=== PATIENT | female | born 1990 | race Caucasian/White ===

== ENCOUNTER 2019-12-27 04:42 | Emergency (ER) | payer BC ==
[2019-12-27] MEDS ORDERED: SODIUM CHLORIDE 0.9% 1,000 ML IV STA (05:02)
[2019-12-27] MEDS ORDERED: MORPHINE SULFATE 4 MG/ML SYRINGE IVP STA (05:10)
[2019-12-27] MEDS ORDERED: ONDANSETRON 4 MG/2 ML VIAL IVP STA (05:10)
--- NOTE | 2019-12-27 05:13 | ED ---
Abdominal Pain HPI - General Chief Complaint: Abdominal Pain Stated Complaint: Abdominal Pain Time Seen by Provider: 12/27/19 05:02 Source: patient Mode of arrival: ambulatory Limitations: no limitations - History of Present Illness Initial Comments: Lupe is a 29-year-old female presents the ER today for evaluation of right lower quadrant abdominal pain. Pain began on Thursday evening, persisted throughout the dayon Thursday progressively worsening. Pain is associated with nausea but no vomiting no change in bowel or bladder habits. No history of ki dney stones. Patient does report a history of ovarian cysts but reports this pain is much more severe and sharp and persistent than previous ovarian cyst pain. Patient has no history of any abdominal surgeries. - Related Data Home Medications Medication Instructions Recorded Confirmed No Known Home Medications 12/27/19 12/27/19 Allergies Allergy/AdvReac Type Severity Reaction Status Date / Time No Known Allergies Allergy Verified 12/27/19 06:59 Review of Systems ROS Statement: Those systems with pertinent positive or pertinent negative responses have been documented in the HPI. ROS Other: All systems not noted in ROS Statement are negative. 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 History of Any Multi-Drug Resistant Organisms: None Reported Past Psychological History: No Psychological Hx Reported Smoking Status: Never smoker Past Alcohol Use History: None Reported Past Drug Use History: None Reported General Exam - General Exam Comments Initial Comments: Physical Exam GENERAL: appears uncomfortable HENT: Normocephalic, Atraumatic. EYES: PERRL, EOMI PULMONARY: Unlabored respirations. CARDIOVASCULAR: RRR Warm and well perfused extremities ABDOMEN: soft with voluntary guarding in the right lower quadrant and suprapubic region No flank tenderness SKIN: No rashes or bruising : Deferred NEUROLOGIC: Alert and oriented Normal speech Normal gait MUSCULOSKELETAL: Moving all extremities with no apparent injury PSYCHIATRIC: No SI/HI Limitations: no limitations Course Vital Signs 12/27/19 04:47 Temperature 98.4 F Pulse Rate 116 H Respiratory 16 Rate Blood Pressure 110/69 O2 Sat by Pulse 98 Oximetry Medical Decision Making - Medical Decision Making she was seen and evaluated history was obtained from the patient History and physical exam are concerning for right lower quadrant abdominal pain, she has some voluntary guarding on exam Labs and CT imaging were obtained Labs are relatively unremarkable Patient declined a pelvic exam stating that she's only had one sexual partner she has no vaginal discharge no concern for sexual transmitted infections Urinalysis grossly contaminated no signs of infection CT imaging with very large bilateral ovarian cysts no signs of appendicitis Patient's pain decreased to a 4 out of 10 with morphine she was given a dose of Toradol she tolerated pelvic ultrasound well Pelvic ultrasound reveals bilateral ovarian cysts with good blood flow Results were discussed with the patient is comfortable with the plan for discharge home, continue supportive care with anti-inflammatories for the cyst and follow up with gynecology. Return parameters including any worsening pain were discussed with the patient all questions pertaining care were answered to the best my ability. I did discuss with the patient that following with gynecology and possibly been put on control or discussing hormonal treatment might decrease the frequency of these cysts. 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 - Lab Data Result diagrams: 12/27/19 05:06 12/27/19 05:06 Lab Results 12/27/19 12/27/19 12/27/19 Range/Units 05:06 05:06 05:06 WBC 8.6 (3.8-10.6) k/uL RBC 4.85 (3.80-5.40) m/uL Hgb 14.9 (11.4-16.0) gm/dL Hct 44.5 (34.0-46.0) % MCV 91.6 (80.0-100.0) fL MCH 30.6 (25.0-35.0) pg MCHC 33.4 (31.0-37.0) g/dL RDW 12.8 (11.5-15.5) % Plt Count 264 (150-450) k/uL Neutrophils % 62 % Lymphocytes % 26 % Monocytes % 7 % Eosinophils % 2 % Basophils % 1 % Neutrophils # 5.3 (1.3-7.7) k/uL Lymphocytes # 2.2 (1.0-4.8) k/uL Monocytes # 0.6 (0-1.0) k/uL Eosinophils # 0.2 (0-0.7) k/uL Basophils # 0.1 (0-0.2) k/uL Sodium 140 (137-145) mmol/L Potassium 3.7 (3.5-5.1) mmol/L Chloride 108 H (98-107) mmol/L Carbon Dioxide 25 (22-30) mmol/L Anion Gap 7 mmol/L BUN 11 (7-17) mg/dL Creatinine 0.57 (0.52-1.04) mg/dL Est GFR (CKD-EPI)AfAm >90 (>60 ml/min/1.73 sqM) Est GFR (CKD-EPI)NonAf >90 (>60 ml/min/1.73 sqM) Glucose 83 (74-99) mg/dL Calcium 9.5 (8.4-10.2) mg/dL Total Bilirubin 0.7 (0.2-1.3) mg/dL AST 17 (14-36) U/L ALT 10 (4-34) U/L Alkaline Phosphatase 71 (38-126) U/L Total Protein 7.3 (6.3-8.2) g/dL Albumin 4.4 (3.5-5.0) g/dL Urine Color Yellow Urine Appearance Cloudy H (Clear) Urine pH 6.0 (5.0-8.0) Ur Specific [place] 1.026 (1.001-1.035) Urine Protein Trace H (Negative) Urine Glucose (UA) Negative (Negative) Urine Ketones Negative (Negative) Urine Blood Trace H (Negative) Urine Nitrite Negative (Negative) Urine Bilirubin Negative (Negative) Urine Urobilinogen 4.0 (<2.0) mg/dL Ur Leukocyte Esterase Small H (Negative) Urine RBC 4 (0-5) /hpf Urine WBC 11 H (0-5) /hpf Ur Squamous Epith Cells 37 H (0-4) /hpf Urine Bacteria Rare H (None) /hpf Hyaline Casts 4 H (0-2) /lpf Urine Mucus Few H (None) /hpf Urine Trichomonas Rare H (None) /hpf Urine HCG, Qual (Not Detectd) 12/27/19 Range/Units 05:06 WBC (3.8-10.6) k/uL RBC (3.80-5.40) m/uL Hgb (11.4-16.0) gm/dL Hct (34.0-46.0) % MCV (80.0-100.0) fL MCH (25.0-35.0) pg MCHC (31.0-37.0) g/dL RDW (11.5-15.5) % Plt Count (150-450) k/uL Neutrophils % % Lymphocytes % % Monocytes % % Eosinophils % % Basophils % % Neutrophils # (1.3-7.7) k/uL Lymphocytes # (1.0-4.8) k/uL Monocytes # (0-1.0) k/uL Eosinophils # (0-0.7) k/uL Basophils # (0-0.2) k/uL Sodium (137-145) mmol/L Potassium (3.5-5.1) mmol/L Chloride (98-107) mmol/L Carbon Dioxide (22-30) mmol/L Anion Gap mmol/L BUN (7-17) mg/dL Creatinine (0.52-1.04) mg/dL Est GFR (CKD-EPI)AfAm (>60 ml/min/1.73 sqM) Est GFR (CKD-EPI)NonAf (>60 ml/min/1.73 sqM) Glucose (74-99) mg/dL Calcium (8.4-10.2) mg/dL Total Bilirubin (0.2-1.3) mg/dL AST (14-36) U/L ALT (4-34) U/L Alkaline Phosphatase (38-126) U/L Total Protein (6.3-8.2) g/dL Albumin (3.5-5.0) g/dL Urine Color Urine Appearance (Clear) Urine pH (5.0-8.0) Ur Specific [place] (1.001-1.035) Urine Protein (Negative) Urine Glucose (UA) (Negative) Urine Ketones (Negative) Urine Blood (Negative) Urine Nitrite (Negative) Urine Bilirubin (Negative) Urine Urobilinogen (<2.0) mg/dL Ur Leukocyte Esterase (Negative) Urine RBC (0-5) /hpf Urine WBC (0-5) /hpf Ur Squamous Epith Cells (0-4) /hpf Urine Bacteria (None) /hpf Hyaline Casts (0-2) /lpf Urine Mucus (None) /hpf Urine Trichomonas (None) /hpf Urine HCG, Qual Not Detected (Not Detectd) Disposition Clinical Impression: Ovarian cyst Disposition: HOME SELF-CARE Condition: Stable Instructions (If sedation given, give patient instructions): Ruptured Ovarian Cyst (ED) Additional Instructions: You have cysts on both ovaries Follow up with gynecology for further management Return to the ER for any acute worsening or development of new or concerning symptoms Is patient prescribed a controlled substance at d/c from ED?: No Referrals: None,Stated [Primary Care Provider] - 1-2 days Edilma Herman MD [STAFF PHYSICIAN] - 1-2 days
[2019-12-27 05:38] LABS: Basophils # (A) 0.1 k/uL (0-0.2); Basophils % (A) 1 %; Eosinophils # (A) 0.2 k/uL (0-0.7); Eosinophils % (A) 2 %; HCT 44.5 % (34.0-46.0); HGB 14.9 gm/dL (11.4-16.0); Lymphocytes # (A) 2.2 k/uL (1.0-4.8); Lymphocytes % (A) 26 %; MCH 30.6 pg (25.0-35.0); MCHC 33.4 g/dL (31.0-37.0); MCV 91.6 fL (80.0-100.0); Mean Platelet Volume 6.5; Monocytes # (A) 0.6 k/uL (0-1.0); Monocytes % (A) 7 %; Neutrophils # (A) 5.3 k/uL (1.3-7.7); Neutrophils % (A) 62 %; Platelet Count 264 k/uL (150-450); RBC 4.85 m/uL (3.80-5.40); RDW 12.8 % (11.5-15.5); WBC 8.6 k/uL (3.8-10.6)
[2019-12-27 05:49] LABS: ALT 10 U/L (4-34); AST 17 U/L (14-36); African American GFR (CKD) >90 (>60 ml/min/1.73 sqM); Albumin 4.4 g/dL (3.5-5.0); Alkaline Phosphatase 71 U/L (38-126); Anion Gap 7 mmol/L; Blood Urea Nitrogen 11 mg/dL (7-17); Calcium 9.5 mg/dL (8.4-10.2); Carbon Dioxide 25 mmol/L (22-30); Chloride 108 mmol/L (98-107); Glucose 83 mg/dL (74-99); Non-African American GFR(CKD) >90 (>60 ml/min/1.73 sqM); Potassium 3.7 mmol/L (3.5-5.1); Sodium 140 mmol/L (137-145); Total Bilirubin 0.7 mg/dL (0.2-1.3); Total Protein 7.3 g/dL (6.3-8.2)
[2019-12-27 05:56] LABS: Appearance,Urine Cloudy (Clear); Bacteria,Urine Rare /hpf; Bilirubin,Urine Negative (Negative); Blood,Urine Trace (Negative); Color,Urine Yellow; Glucose,Urine (UA) Negative (Negative); Hyaline Casts,Urine 4 /lpf (0-2); Ketones,Urine Negative (Negative); Leukocyte Esterase,Urine Small (Negative); Mucus,Urine Few /hpf; Nitrite,Urine Negative (Negative); Protein,Urine Trace (Negative); RBC,Urine 4 /hpf (0-5); Specific Gravity,Urine 1.026 (1.001-1.035); Squamous Epithelial Cell,Urine 37 /hpf (0-4); Trichomonas,Urine Rare /hpf; WBC,Urine 11 /hpf (0-5)
--- NOTE | 2019-12-27 06:44 | CT ---
EXAM: CT Abdomen and Pelvis With Intravenous Contrast CLINICAL HISTORY: RLQ abd pain, concerning for appy TECHNIQUE: Axial computed tomography images of the abdomen and pelvis with intravenous contrast. CTDI is 12.77 mGy and DLP is 554.5 mGy-cm. This CT exam was performed using one or more of the following dose reduction techniques: automated exposure control, adjustment of the mA and/or kV according to patient size, and/or use of iterative reconstruction technique. COMPARISON: No relevant prior studies available. FINDINGS: Lung bases: Unremarkable. No mass. No consolidation. ABDOMEN: Liver: Mild hepatic steatosis. Gallbladder and bile ducts: Unremarkable. No calcified stones. No ductal dilation. Pancreas: Unremarkable. No mass. No ductal dilation. Spleen: Unremarkable. No splenomegaly. Adrenals: Unremarkable. No mass. Kidneys and ureters: Unremarkable. No solid mass. No hydronephrosis. Stomach and bowel: Unremarkable. No obstruction. No mucosal thickening. PELVIS: Appendix: No findings to suggest acute appendicitis. Bladder: Unremarkable. No mass. Reproductive: Bilateral ovarian cysts, measuring up to 3.3 cm in greatest axial dimension on the right and 5.1 cm in greatest axial dimension on the left. ABDOMEN and PELVIS: Intraperitoneal space: Small amount of pelvic free fluid, likely physiologic. No free air. Bones/joints: No acute fracture. No dislocation. Soft tissues: Unremarkable. Vasculature: Unremarkable. No abdominal aortic aneurysm. Lymph nodes: Unremarkable. No enlarged lymph nodes. IMPRESSION: Bilateral ovarian cysts, measuring up to 3.3 cm in greatest axial dimension on the right and 5.1 cm in greatest axial dimension on the left. Small amount of pelvic free fluid, likely physiologic. Pelvic ultrasound is recommended for further evaluation.
[2019-12-27] MEDS ORDERED: KETOROLAC 15 MG/ML 1 ML VIAL IVP STA (06:51)
--- NOTE | 2019-12-27 08:05 | US ---
EXAMINATION TYPE: US transvag plus Dopplers DATE OF EXAM: 12/27/2019 COMPARISON: CT 12/27/2019 CLINICAL HISTORY: 29-year-old female ovarian cysts measuring 3-5cm on CT. TECHNIQUE: Transvaginal sonographic images of the pelvis were acquired. Color Doppler and spectral w aveform analysis of the ovarian arteries and veins. Date of LMP: 12/05/2019 FINDINGS: EXAM MEASUREMENTS: Uterus: 7.8 x 3.5 x 3.8 cm Endometrial Stripe: 0.7 cm Right Ovary: 4.5 x 3.5 x 3.3 cm with a volume of 26.8 mL. Left Ovary: 5.6 x 4.7 x 3.5 cm with a volume of 47.6 mL. 1. Uterus: Anteverted wnl 2. Endometrium: wnl 3. Right Ovary: Cyst visualized measuring 3.1 x 2.6 x 2.8 cm 4. Left Ovary: Complex cyst visualized measuring 4.8 x 2.5 x 4.2 cm. There is internal reticulations and faint septations. Spectral, color and waveform doppler imaging shows good arterial and venous flow within the ovaries ; there is no evidence for ovarian torsion. 5. Bilateral Adnexa: wnl 6. Posterior cul-de-sac: wnl IMPRESSION: 1. No sonographic evidence for ovarian torsion. 2. Complex cyst within the left ovary measures 4.8 cm. Given the internal reticulations, a hemorrhagi c cyst is suspected. Follow-up in 6-8 weeks to ensure resolution. 3. An additional dominant follicle or functional cyst measuring 3.1 cm on the right. This can also be reassessed at the patient's follow-up.
[2019-12-27 08:22] VITALS: BP 113/70; PULSE 65; RESP 18; TEMP 98.8
== END 2019-12-27 08:31 | disposition home or self-care (01) ==
LOC: EC 04:42
DX: N83.202 Unspecified ovarian cyst, left side (principal); N83.201 Unspecified ovarian cyst, right side
CPT/HCPCS: 36415; 80053; 85025; 81001; 81025; 93975; 76830; 74177; 99284; 96374; 96375 ×2; 96361 ×2; J2270; J2405; J1885; Q9967

== ENCOUNTER 2019-12-28 20:27 | Emergency (ER) | payer BC ==
[2019-12-28 20:49] VITALS: TEMP 98.1
[2019-12-28] MEDS ORDERED: SODIUM CHLORIDE 0.9% 1,000 ML IV STA (21:25)
[2019-12-28] MEDS ORDERED: KETOROLAC 15 MG/ML 1 ML VIAL IVP STA (21:25)
[2019-12-28] MEDS ORDERED: ONDANSETRON 4 MG/2 ML VIAL IVP STA (21:26)
[2019-12-28 22:05] LABS: Appearance,Urine Cloudy (Clear); Bacteria,Urine Rare /hpf; Bilirubin,Urine Negative (Negative); Blood,Urine Moderate (Negative); Color,Urine Yellow; Glucose,Urine (UA) Negative (Negative); Hyaline Casts,Urine 3 /lpf (0-2); Ketones,Urine Negative (Negative); Leukocyte Esterase,Urine Negative (Negative); Mucus,Urine Few /hpf; Nitrite,Urine Negative (Negative); Protein,Urine Trace (Negative); RBC,Urine 1 /hpf (0-5); Specific Gravity,Urine 1.027 (1.001-1.035); Squamous Epithelial Cell,Urine 18 /hpf (0-4); WBC,Urine 2 /hpf (0-5)
--- NOTE | 2019-12-28 22:15 | ED ---
Abdominal Pain HPI - General Chief Complaint: Abdominal Pain Stated Complaint: ovarian cysts-revisit Time Seen by Provider: 12/28/19 21:02 Source: patient Mode of arrival: ambulatory Limitations: no limitations - History of Present Illness Initial Comments: Patient is a 29-year-old female presenting to emergency Department with complaints of lower abdominal discomfort as well as nausea since yesterday. Patient was seen in the ER yesterday was diagnosed with ovarian cyst, possibly ruptured. She was sent home with ibuprofen. Patient states she came back today couldn't she is worried that the other side might have ruptured. She states her pain is not any worse but is not any better either. She states ibuprofen is not working. She does admit to nausea, no vomiting. She had a regular bowel movement today. She denies any fever, chills. She denies being at this time. She states she did make an appointment with an MILLING MACHINE OPERATOR, appointment is for Thursday. She is no further complaints at this time. - Related Data Home Medications Medication Instructions Recorded Confirmed Aspirin EC [Ecotrin Low Dose] 81 mg PO DAILY 12/28/19 12/28/19 Previous Rx's Medication Instructions Recorded Ketorolac [Toradol] 10 mg PO Q8HR #15 tab 12/28/19 Allergies Allergy/AdvReac Type Severity Reaction Status Date / Time No Known Allergies Allergy Verified 12/28/19 22:20 Review of Systems ROS Statement: Those systems with pertinent positive or pertinent negative responses have been documented in the HPI. ROS Other: All systems not noted in ROS Statement are negative. 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 , ovarian cyst History of Any Multi-Drug Resistant Organisms: None Reported Additional Past Surgical History / Comment(s): "heart surgery" Past Psychological History: No Psychological Hx Reported Smoking Status: Current every day smoker Past Alcohol Use History: Daily Past Drug Use History: Marijuana General Exam - General Exam Comments Initial Comments: GENERAL: Patient is well-developed and well-nourished. Patient is nontoxic and in no acute distress. HEAD: Atraumatic, normocephalic. EYES: Pupils equal round and reactive to light, extraocular movements intact, sclera a nicteric, conjunctiva are normal. Eyelids were unremarkable. ENT: TMs normal, nares patent, oropharynx clear without exudates. Moist mucous membranes. NECK: Normal range of motion, supple without lymphadenopathy or JVD. LUNGS: Unlabored respirations. Breath sounds clear to auscultation bilaterally and equal. No wheezes rales or rhonchi. HEART: Regular rate and rhythm without murmurs, rubs or gallops. ABDOMEN: Mild tenderness to the lower abdomen. Soft, normoactive bowel sounds. No guarding, no rebound. No masses appreciated. : declined MUSCULOSKELETAL: Normal extremities with adequate strength and normal range of motion, no pitting or edema. No clubbing or cyanosis. NEUROLOGICAL: Patient is alert and oriented x 3. Motor and sensory are also intact. Normal speech, normal gait. PSYCH: Normal mood, normal affect. SKIN: Warm, Dry, normal turgor, no rashes or lesions noted. Limitations: no limitations Course Vital Signs 12/28/19 20:46 Temperature 98.1 F Pulse Rate 98 Respiratory 20 Rate Blood Pressure 134/82 O2 Sat by Pulse 95 Oximetry Medical Decision Making - Medical Decision Making Patient is a 29-year-old female here for lower abdominal discomfort since yesterday. Patient was seen in the ER yesterday and had a full evaluation including labs, computed tomography scan as well as an ultrasound which revealed ovarian cysts. No signs of ovarian torsion. Patient is only having mild pain to palpation in the lower abdomen. Her vital signs are stable. I did repeat her urine shows no evidence of a UTI, urine hCG is not detected. I did review her urine from yesterday and they did mention urine trichomonas present. I did discuss this with the patient, I will treat her for trichomonas. I did recommend a pelvic exam however patient is declining this. She states she has no symptoms including no vaginal discharge, no vaginal pain. She also declined it yesterday. I will give patient Flagyl for Trichomonas. She was given fluids, Toradol and some Zofran for her symptoms. She has been resting comfortably in the bed. She is stable for discharge. She needs follow-up with MILLING MACHINE OPERATOR regarding her ovarian cyst. Return parameters were discussed with the patient she verbalized understanding. Case discussed with Dr. Zimmerman. - Lab Data Lab Results 12/28/19 12/28/19 Range/Units 21:46 21:46 Urine Color Yellow Urine Appearance Cloudy H (Clear) Urine pH 6.0 (5.0-8.0) Ur Specific [place] 1.027 (1.001-1.035) Urine Protein Trace H (Negative) Urine Glucose (UA) Negative (Negative) Urine Ketones Negative (Negative) Urine Blood Moderate H (Negative) Urine Nitrite Negative (Negative) Urine Bilirubin Negative (Negative) Urine Urobilinogen 2.0 (<2.0) mg/dL Ur Leukocyte Esterase Negative (Negative) Urine RBC 1 (0-5) /hpf Urine WBC 2 (0-5) /hpf Ur Squamous Epith Cells 18 H (0-4) /hpf Urine Bacteria Rare H (None) /hpf Hyaline Casts 3 H (0-2) /lpf Urine Mucus Few H (None) /hpf Urine HCG, Qual Not Detected (Not Detectd) Disposition Clinical Impression: Ovarian cyst, Abdominal pain, Trichomonas infection Disposition: HOME SELF-CARE Condition: Stable Instructions (If sedation given, give patient instructions): Ovarian Cyst (ED) Additional Instructions: Please return to the Emergency Department if symptoms worsen or any other concerns. Alternate between ibuprofen and Tylenol for discomfort. Do not drink alcohol for 48 hours after the medication given in the hospital. Follow-up with MILLING MACHINE OPERATOR as discussed. Prescriptions: Ketorolac [Toradol] 10 mg PO Q8HR #15 tab Is patient prescribed a controlled substance at d/c from ED?: No Referrals: None,Stated [Primary Care Provider] - 1-2 days
[2019-12-28] MEDS ORDERED: metroNIDAZOLE 500 MG TAB PO STA (22:27)
[2019-12-28 22:53] VITALS: BP 121/75; PULSE 70; RESP 18
== END 2019-12-28 22:59 | disposition home or self-care (01) ==
LOC: EC 20:27
DX: N83.201 Unspecified ovarian cyst, right side (principal); N83.202 Unspecified ovarian cyst, left side; A59.9 Trichomoniasis, unspecified; F17.200 Nicotine dependence, unspecified, uncomplicated
CPT/HCPCS: 81001; 81025; 99284; 96374; 96375; J2405; J1885

== ENCOUNTER → 2021-09-18 | Outpatient (CLI) | payer BC ==
--- NOTE | 2021-09-18 13:07 | CA ---
Transthoracic Echo Report Name: Lupe Sidhu Age: 30 Gender: F : 1990 Exam Date: 09/18/2021 08:32 Exam Location: [facility] Ht (in): 64.5 Wt (lb): 118 Ordering Physician: Edgard Diaz MD ([id number]) Attending/Referring Phys: Mohs Surgeon Karina Henderson RDCS Procedure CPT: Indications: I31.3 I35.1 Q21.1 Cardiac Hx: Technical Quality: Good Contrast 1: Total Dose (mL): Contrast 2: Total Dose (mL): MEASUREMENTS (Male / Female) Normal Values 2D ECHO LV Diastolic Diameter PLAX 4.8 cm 4.2 - 5.9 / 3.9 - 5.3 cm LV Systolic Diameter PLAX 3.2 cm IVS Diastolic Thickness 1.0 cm 0.6 - 1.0 / 0.6 - 0.9 cm LVPW Diastolic Thickness 0.9 cm 0.6 - 1.0 / 0.6 - 0.9 cm LV Relative Wall Thickness 0.4 RV Internal Dim ED PLAX 3.2 cm LA Systolic Diameter LX 3.0 cm 3.0 - 4.0 / 2.7 - 3.8 cm LA Volume 44.9 cm??? 18 - 58 / 22 - 52 cm??? M-MODE Aortic Root Diameter MM 2.7 cm MV E Point Septal Separation 0.4 cm AV Cusp Separation MM 2.0 cm DOPPLER AV Peak Velocity 175.1 cm/s AV Peak Gradient 12.3 mmHg AI Peak Velocity 569.9 cm/s AI Peak Gradient 129.9 mmHg AI Pressure Half Time 317.1 ms MV Area PHT 3.4 cm??? Mitral E Point Velocity 78.8 cm/s Mitral A Point Velocity 94.4 cm/s Mitral E to A Ratio 0.8 MV Deceleration Time 224.8 ms MV E' Velocity 10.9 cm/s Mitral E to MV E' Ratio 7.2 TR Peak Velocity 214.3 cm/s TR Peak Gradient 18.4 mmHg Right Ventricular Systolic Press 22.7 mmHg FINDINGS Left Ventricle Left ventricular ejection fraction is estimated at 55-60 %. Left ventricular cavity size normal. Left ventricular wall thickness normal. Right Ventricle Normal right ventricular size and function. Right ventricular systolic pressure within normal limits. Right Atrium Normal right atrial size. Left Atrium Normal left atrial size. No evidence for an atrial septal defect. Atrial septal defect repair 8 y/a. No shunt noted Mitral Valve Structurally normal mitral valve. No evidence for mitral valve prolapse. Trace to mild mitral regurgitation. Aortic Valve Trileaflet aortic valve. Moderate aortic regurgitation. Tricuspid Valve Mild tricuspid regurgitation. Pulmonic Valve Trace pulmonic regurgitation. Pericardium Normal pericardium. No pericardial effusion. Aorta Normal size aortic root and proximal ascending aorta. CONCLUSIONS Normal LV size and systolic function. This seems to be a ASD closure device but no shunt is noted. Aortic valve seems trileaflet but one cusp could be smaller and there is moderate aortic regurgitation. No pericardial effusion Previewed by: Dr. Rosalva Moran MD (Electronically Signed) Final Date: 18 September 2021 13:06
== END | disposition home or self-care (01) ==
LOC: RADECHMAIN 08:21
PROVIDERS: ATTEND Internal Medicine Clinical Cardiac Electrophysiology
DX: I08.3 Combined rheumatic disorders of mitral, aortic and tricuspid valves (principal); I31.3 Pericardial effusion (noninflammatory); Q21.1 Atrial septal defect
CPT/HCPCS: 93306

== ENCOUNTER → 2021-12-12 | Outpatient (CLI) | payer BC ==
--- NOTE | 2021-12-12 09:41 | US ---
EXAMINATION TYPE: US thyroid st tissue head/neck DATE OF EXAM: 12/12/2021 COMPARISON: CT chest July 05, 2021 CLINICAL HISTORY: E04.2 NONTOXIC MULTINODULAR GOITER. Goiter GLAND SIZE: Right Lobe: 6.7 x 2.6 x 3.9 cm Overall Parenchyma: heterogenous Left Lobe: 6.5 x 2.1 x 2.4 cm Overall Parenchyma: heterogeneous Isthmus Thickness: 0.4 cm NODULES RIGHT: # of nodules measured on right: 2 1. 3.2 X 2.4 x 2.8 cm, lower , solid or almost completely solid, hyperechoic nodule, which is wider than tall, with smooth margins, without echogenic foci. Prior size: no prior TR3 lesion. 2. 1.7 X 1.0 x 1.3 cm, mid, mixed cystic and solid, hypoechoic nodule, which is wider than tall, wi th lobulated or irregular margins, without echogenic foci. Prior size: no prior TR 3 lesion. LEFT: # of nodules measured on left: 3 1. 1.5 X 1.0 x 1.3 cm, upper , mixed cystic and solid, isoechoic nodule, which is wider than tall, with smooth margins, without echogenic foci. Prior size: no prior TR4 lesion 2. 1.7 X 1.1 x 1.5 cm, lower , solid or almost completely solid, hyperechoic nodule, which is wide r than tall, with smooth margins, without echogenic foci. Prior size: no prior TR 3 lesion. 3. 2.1 X 1.3 x 1.7 cm, lower , solid or almost completely solid, isoechoic nodule, which is wider t [place] tall, with smooth margins, without echogenic foci. Prior size: no prior TR 3 lesion ISTHMUS: # of nodules measured in the isthmus: 0 Bilateral neck scanned, no evidence of lymphadenopathy. Heterogeneous enlarged thyroid with multiple nodules. IMPRESSION: Advise sampling of the TR 4 1.5 cm lesion left thyroid lobe and the 3.2 cm nodule TR3 les ion right thyroid lobe. 2017 ACR TI-RADS LEVEL: TR-RADS 4 - Moderately Suspicious: Follow if > 1 cm, FNA if > 1.5 cm *Highest TI-RADS level nodule reported
== END | disposition home or self-care (01) ==
LOC: RADUSWWP 07:52
PROVIDERS: ATTEND Internal Medicine
DX: E04.2 Nontoxic multinodular goiter (principal)
CPT/HCPCS: 76536

== ENCOUNTER → 2022-06-06 | Outpatient (CLI) | payer BC ==
[2022-06-06 16:25] LABS: T4, Free (Free Thyroxine) 0.81 ng/dL (0.800-1.800)
== END | disposition home or self-care (01) ==
LOC: LABWHC1 09:50
PROVIDERS: ATTEND Nurse Practitioner Adult Health
DX: I47.1 Supraventricular tachycardia (principal); E03.9 Hypothyroidism, unspecified; C73 Malignant neoplasm of thyroid gland
CPT/HCPCS: 36415; 84432; 84439; 84443; 86800

== ENCOUNTER → 2022-08-27 | Outpatient (CLI) | payer BC ==
[2022-08-28 01:02] LABS: T4, Free (Free Thyroxine) 2.72 ng/dL (0.80-1.80)
== END | disposition home or self-care (01) ==
LOC: LABWHC1 12:12
PROVIDERS: ATTEND Internal Medicine
DX: E03.9 Hypothyroidism, unspecified (principal)
CPT/HCPCS: 36415; 84439; 84443

== ENCOUNTER → 2022-09-24 | Outpatient (CLI) | payer BC ==
--- NOTE | 2022-09-24 21:44 | US ---
EXAMINATION TYPE: US thyroid st tissue head/neck DATE OF EXAM: 09/24/2022 COMPARISON: US 12/12/2021. CLINICAL INDICATION: Female, 31 years old with history of C73 MALIGNANT NEOPLASM OF THYROID GLAND; Pt states thyroidectomy in February of 2022/ follow-up from surgery Technique: Grayscale imaging of the thyroid gland. Findings: Bilateral neck scanned, no evidence of lymphadenopathy. Bilateral thyroid bed appeared wnl, no defin ite residual thyroid tissue identified on today's scan. IMPRESSION: Thyroid gland is surgically absent. No evidence for suspicious mass or lymphadenopathy.
== END | disposition home or self-care (01) ==
LOC: RADUSWWP 16:25
PROVIDERS: ATTEND Internal Medicine
DX: C73 Malignant neoplasm of thyroid gland (principal)
CPT/HCPCS: 76536

== ENCOUNTER → 2022-12-04 | Outpatient (CLI) | payer BC ==
--- NOTE | 2022-12-04 16:28 | US ---
EXAMINATION TYPE: US transvaginal DATE OF EXAM: 12/04/2022 COMPARISON: US 2019 CLINICAL INDICATION: Female, 32 years old with history of N94.89 OTH COND ASSOC W FEMALE GENITAL ORGA NS AND; History of ovarian cysts TECHNIQUE: Transvaginal only per patient's order Date of LMP: 11/09/2022 EXAM MEASUREMENTS: Uterus: 7.9 x 3.5 x 4.6 cm Endometrial Stripe: 0.9 cm Right Ovary: 3.8 x 2.1 x 3.4 cm Left Ovary: 3.5 x 1.6 x 2.1 cm 1. Uterus: anteverted 2. Endometrium: wnl 3. Right Ovary: 1.7cm dominant follicle, 1.9 x 1.4 x 2.1cm hypoechoic area 4. Left Ovary: wnl 5. Bilateral Adnexa: wnl 6. Posterior cul-de-sac: wnl IMPRESSION: 1 probable functional right ovarian cyst.
== END | disposition home or self-care (01) ==
LOC: RADUSWWP 15:45
PROVIDERS: ATTEND Internal Medicine
DX: N94.89 Other specified conditions associated with female genital organs and menstrual cycle (principal)
CPT/HCPCS: 76830

== ENCOUNTER → 2023-02-21 | Outpatient (CLI) | payer BC ==
[2023-02-21 23:00] LABS: T4, Free (Free Thyroxine) 2.38 ng/dL (0.80-1.80)
== END | disposition home or self-care (01) ==
LOC: LABWHC1 10:28
PROVIDERS: ATTEND Internal Medicine
DX: C73 Malignant neoplasm of thyroid gland (principal); E03.9 Hypothyroidism, unspecified
CPT/HCPCS: 36415; 84432; 84439; 84443; 86800

== ENCOUNTER 2023-05-04 08:18 | Observation (INO) | payer BC ==
[2023-05-04] MEDS: SODIUM CHLORIDE 0.9% 1,000 ML IV STA (09:07)
[2023-05-04] MEDS: MORPHINE SULFATE 2 MG/ML SYRINGE IVP STA (09:07)
[2023-05-04 09:29] LABS: Basophils # (A) 0.1 k/uL (0-0.2); Basophils % (A) 1 %; Eosinophils # (A) 0.1 k/uL (0-0.7); Eosinophils % (A) 1 %; HCT 38.5 % (34.0-46.0); HGB 13.1 gm/dL (11.4-16.0); Lymphocytes # (A) 1.5 k/uL (1.0-4.8); Lymphocytes % (A) 21 %; MCH 30.7 pg (25.0-35.0); MCV 90.3 fL (80.0-100.0); Mean Platelet Volume 7.2; Monocytes # (A) 0.4 k/uL (0-1.0); Monocytes % (A) 7 %; Neutrophils # (A) 4.8 k/uL (1.3-7.7); Neutrophils % (A) 69 %; Platelet Count 220 k/uL (150-450); RBC 4.26 m/uL (3.80-5.40); RDW 12.7 % (11.5-15.5); WBC 6.9 k/uL (3.8-10.6)
[2023-05-04 09:45] LABS: INR 1.1 (<1.2)
[2023-05-04 09:51] LABS: ALT 12 U/L (4-34); AST 21 U/L (14-36); African American GFR (CKD) >90 (>60 ml/min/1.73 sqM); Albumin 4.2 g/dL (3.5-5.0); Alkaline Phosphatase 70 U/L (38-126); Anion Gap 6 mmol/L; Blood Urea Nitrogen 22 mg/dL (7-17); Calcium 9.2 mg/dL (8.4-10.2); Carbon Dioxide 23 mmol/L (22-30); Chloride 108 mmol/L (98-107); Glucose 93 mg/dL (74-99); Lipase 132 U/L (23-300); Magnesium 1.6 mg/dL (1.6-2.3); Non-African American GFR(CKD) >90 (>60 ml/min/1.73 sqM); Potassium 4.1 mmol/L (3.5-5.1); Sodium 137 mmol/L (137-145); Total Bilirubin 0.7 mg/dL (0.2-1.3); Total Protein 6.6 g/dL (6.3-8.2)
[2023-05-04 09:57] LABS: NT-Pro-B-Type Natriuretic Pept 395 pg/mL
--- NOTE | 2023-05-04 10:25 | CT ---
EXAMINATION: CTA CHEST WITH IV CONTRAST, CT PULMONARY ANGIOGRAM DATE OF EXAM: 05/04/2023 10:16 AM HISTORY: Chest pain radiating to back. TECHNIQUE: CTA examination of the chest , abdomen and pelvis was performed without and following the intravenous administration of 100 mL Isovue 300. Sagittal, coronal and 3-D reformatted images were pr ovided. CT dose lowering techniques were used, to include: automated exposure control, adjustment for patient size, and or use of iterative reconstruction. COMPARISON: None. FINDINGS: Lungs: Normal. Pleura: Normal. Mediastinum and Maria D: Normal. Pulmonary Arteries: Pulmonary arteries are well-opacified to the subsegmental level, no evidence of p ulmonary embolism. Cardiovascular: Normal. Upper Abdomen: Normal. Chest Wall: Normal. ABDOMEN: The liver, adrenals, kidneys, spleen, pancreas and gallbladder are within normal limits. There is no mesenteric or retroperitoneal lymphadenopathy. The thoracic aorta is normal in caliber without evidence of aneurysmal dilation or dissection. There are no pulmonary arterial filling defects. Atrial septal closure device is seen. There are no dilated loops of bowel or free intraperitoneal air. The appendix is normal. Pelvis: There is trace free fluid within the pelvis. There is no pelvic or inguinal lymphadenopathy. No gross bladder abnormalities are seen. Musculoskeletal: Normal. IMPRESSION: 1. No acute process seen within the chest, abdomen or pelvis.
[2023-05-04] MEDS: NITROGLYCERIN SL TABS 0.4 MG TAB SUBLINGUAL STA (10:53)
[2023-05-04] MEDS: ASPIRIN 81 MG PO STA (11:00)
[2023-05-04] MEDS ORDERED: NALOXONE 0.4 MG/ML 1 ML VIAL IV PRN (11:35)
--- NOTE | 2023-05-04 11:35 | ED ---
General Adult HPI - General Chief complaint: Chest Pain Stated complaint: Chest pain, SOB Time Seen by Provider: 05/04/23 08:40 Source: patient, RN notes reviewed, old records reviewed Mode of arrival: ambulatory Limitations: no limitations - History of Present Illness Initial comments: Patient is a 32-year-old female who presents emergency department complaining of chest pain with radiation to the back. Has a history of pericardial effusion. No history of cardiac stents. States pain has been present for the last few weeks but worse over the last few days. Nothing seems to help with it. Nothing seems to provoke it. Presents for further evaluation at this time. - Related Data Home Medications Medication Instructions Recorded Confirmed Levothyroxine Sodium 137 mcg PO DAILY 05/04/23 05/04/23 lisinopriL [Zestril] 2.5 mg PO DAILY 05/04/23 05/04/23 Allergies Allergy/AdvReac Type Severity Reaction Status Date / Time No Known Allergies Allergy Verified 05/04/23 12:41 Review of Systems ROS Statement: Those systems with pertinent positive or pertinent negative responses have been documented in the HPI. Review of Systems: CONST: Denies fever EYES: Denies blurry vision ENT: Denies nasal congestion C/V: Endorses chest pain RESP: Denies shortness of breath GI: Denies abdominal pain : Denies dysuria SKIN: Denies rash. MSK: Denies joint pain. NEURO: Denies headache ROS Other: All systems not noted in ROS Statement are negative. 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 , ovarian cyst History of Any Multi-Drug Resistant Organisms: None Reported Additional Past Surgical History / Comment(s): "heart surgery" Past Psychological History: No Psychological Hx Reported Smoking Status: Current every day smoker Past Alcohol Use History: Daily Past Drug Use History: Marijuana General Exam - General Exam Comments Initial Comments: General: Appears in no acute distress. HEAD: Normal with no signs of head trauma. EYES: PERRLA, EOMI, conjunctiva normal, no discharge. ENT: Hearing grossly intact, normal oropharynx. RESPIRATORY: Clear breath sounds bilaterally. No wheezes, rales, or rhonchi. C/V: Regular rate and rhythm. S1 and S2 auscultated, no edema, peripheral pulses 2+ and intact throughout ABD: Abd is soft, nontender, nondistended EXT: Normal range of motion, no obvious deformity SKIN: No rashes or lesions observed on exposed skin. NEURO: Alert and oriented x 4. Cranial nerves II-XII intact. No focal sensory or strength deficits. Limitations: no limitations Course Vital Signs 05/04/23 05/04/23 05/04/23 08:30 09:10 10:47 Temperature 98.2 F Pulse Rate 90 78 76 Respiratory 16 18 18 Rate Blood Pressure 125/78 134/64 116/56 O2 Sat by Pulse 98 99 99 Oximetry 05/04/23 11:53 Temperature Pulse Rate 75 Respiratory 20 Rate Blood Pressure 111/75 O2 Sat by Pulse 97 Oximetry Medical Decision Making - Medical Decision Making Was pt. sent in by a medical professional or institution (, PA, CUTTING AND CREASING PRESS OPERATOR, urgent care, hospital, or [place] health care facility...) When possible be specific @ -No Did you speak to anyone other than the patient for history (EMS, parent, family, police, friend...)? What history was obtained from this source @ -No Did you review nursing and triage notes (agree or disagree)? Why? @ -I reviewed and agree with nursing and triage notes Were old charts reviewed (outside hosp., previous admission, EMS record, old EKG, old radiological studies, urgent care reports/EKG's, [place] health care facility records)? Report findings @ -Old charts reviewed Differential Diagnosis (chest pain, altered mental status, abdominal pain women, abdominal pain men, vaginal bleeding, weakness, fever, dyspnea, syncope, headache, dizziness, GI bleed, back pain, seizure, CVA, palpatations, mental health, musculoskeletal)? @ -Differential Chest Pain: Stable Angina, Unstable Angina, STEMI, NSTEMI Aortic Dissection, Pneumothorax, Musculoskeletal, Esophageal Spasm GERD, Cholecystitis, Pancreatitis, Zoster, t his is not meant to be an all-inclusive list. EKG interpreted by me (3pts min.). @ -As above X-rays interpreted by me (1pt min.). @ -None done CT interpreted by me (1pt min.). @ -CT angio of the aorta reveals no obvious acute process. U/S interpreted by me (1pt. min.). @ -None done What testing was considered but not performed or refused? (CT, X-rays, U/S, labs)? Why? @ -None What meds were considered but not given or refused? Why? @ -None Did you discuss the management of the patient with other professionals (professionals i.e. , PA, CUTTING AND CREASING PRESS OPERATOR, lab, RT, psych nurse, manager social responsibility, special police, teacher, workers' compensation hearings officer, lead case manager)? Give summary @ -Discussed with [facility], midlevel Nancie who is accepted the admission. Was smoking cessation discussed for >3mins.? @ -No Was critical care preformed (if so, how long)? @ -No Were there social determinants of health that impacted care today? How? (Homelessness, low income, unemployed, alcoholism, drug addiction, transportation, low edu. Level, literacy, decrease access to med. care, usp, rehab)? @ -No Was there de-escalation of care discussed even if they declined (Discuss DNR or withdrawal of care, Hospice)? DNR status @ -No What co-morbidities impacted this encounter? (DM, HTN, Smoking, COPD, CAD, Cancer, CVA, ARF, Chemo, Hep., AIDS, mental health diagnosis, sleep apnea, morbid obesity)? @ -Pericardial effusion Was patient admitted / discharged? Hospital course, mention meds given and route, prescriptions, significant lab abnormalities, going to OR and other pertinent info. @ -Based on patient's presentation and physical exam, presents with chest pain. Has been ongoing for few weeks but is concerned it may have gotten worse over the last few days. Did see her home health attendant last week however symptoms persist. Presents for further evaluation. Will obtain cardiopulmonary workup and will obtain CT angiogram to evaluate the patient's aorta as well as for PE. Vital signs are within acceptable limits. Be symptomatically treated with morphine. CT unremarkable. EKG unremarkable. Patient's laboratory studies remarkable for negative troponin. On reevaluation, despite morphine, as well as nitro, chest pain persist. Did have some minimal improvement with morphine. We discussed her negative workup. She will be admitted for this chest pain. Cardiology consulted. Echo ordered. Patient given an aspirin at this time. I spoke with the admitting team, HENRY [place] of [facility] who accepted the admission. Undiagnosed new problem with uncertain prognosis? @ -No Drug Therapy requiring intensive monitoring for toxicity (Heparin, Nitro, Insulin, Cardizem)? @ -No Were any procedures done? @ -No Diagnosis/symptom? @ -Chest pain Acute, or Chronic, or Acute on Chronic? @ -Acute on chronic Uncomplicated (without systemic symptoms) or Complicated (systemic symptoms)? @ -Complicated Side effects of treatment? @ -No Exacerbation, Progression, or Severe Exacerbation? @ -No Poses a threat to life or bodily function? How? (Chest pain, [place], [place], pneumonia, PE, COPD, DKA, ARF, appy, cholecystitis, CVA, Diverticulitis, Homicidal, Suicidal, threat to staff... and all critical care pts) @ -Possibly, yes - Lab Data Result diagrams: 05/04/23 09:05 05/04/23 09:05 Lab Results 05/04/23 05/04/23 05/04/23 Range/Units 09:05 09:05 09:05 WBC 6.9 (3.8-10.6) k/uL RBC 4.26 (3.80-5.40) m/uL Hgb 13.1 (11.4-16.0) gm/dL Hct 38.5 (34.0-46.0) % MCV 90.3 (80.0-100.0) fL MCH 30.7 (25.0-35.0) pg MCHC 34.0 (31.0-37.0) g/dL RDW 12.7 (11.5-15.5) % Plt Count 220 (150-450) k/uL MPV 7.2 Neutrophils % 69 % Lymphocytes % 21 % Monocytes % 7 % Eosinophils % 1 % Basophils % 1 % Neutrophils # 4.8 (1.3-7.7) k/uL Lymphocytes # 1.5 (1.0-4.8) k/uL Monocytes # 0.4 (0-1.0) k/uL Eosinophils # 0.1 (0-0.7) k/uL Basophils # 0.1 (0-0.2) k/uL PT 12.0 (10.0-12.5) sec INR 1.1 (<1.2) APTT 22.0 (22.0-30.0) sec Sodium 137 (137-145) mmol/L Potassium 4.1 (3.5-5.1) mmol/L Chloride 108 H (98-107) mmol/L Carbon Dioxide 23 (22-30) mmol/L Anion Gap 6 mmol/L BUN 22 H (7-17) mg/dL Creatinine 0.67 (0.52-1.04) mg/dL Est GFR (CKD-EPI)AfAm >90 (>60 ml/min/1.73 sqM) Est GFR (CKD-EPI)NonAf >90 (>60 ml/min/1.73 sqM) Glucose 93 (74-99) mg/dL Calcium 9.2 (8.4-10.2) mg/dL Magnesium 1.6 (1.6-2.3) mg/dL Total Bilirubin 0.7 (0.2-1.3) mg/dL AST 21 (14-36) U/L ALT 12 (4-34) U/L Alkaline Phosphatase 70 (38-126) U/L Troponin I (0.000-0.034) ng/mL NT-Pro-B Natriuret Pep 395 pg/mL Total Protein 6.6 (6.3-8.2) g/dL Albumin 4.2 (3.5-5.0) g/dL Lipase 132 (23-300) U/L 05/04/23 Range/Units 09:05 WBC (3.8-10.6) k/uL RBC (3.80-5.40) m/uL Hgb (11.4-16.0) gm/dL Hct (34.0-46.0) % MCV (80.0-100.0) fL MCH (25.0-35.0) pg MCHC (31.0-37.0) g/dL RDW (11.5-15.5) % Plt Count (150-450) k/uL MPV Neutrophils % % Lymphocytes % % Monocytes % % Eosinophils % % Basophils % % Neutrophils # (1.3-7.7) k/uL Lymphocytes # (1.0-4.8) k/uL Monocytes # (0-1.0) k/uL Eosinophils # (0-0.7) k/uL Basophils # (0-0.2) k/uL PT (10.0-12.5) sec INR (<1.2) APTT (22.0-30.0) sec Sodium (137-145) mmol/L Potassium (3.5-5.1) mmol/L Chloride (98-107) mmol/L Carbon Dioxide (22-30) mmol/L Anion Gap mmol/L BUN (7-17) mg/dL Creatinine (0.52-1.04) mg/dL Est GFR (CKD-EPI)AfAm (>60 ml/min/1.73 sqM) Est GFR (CKD-EPI)NonAf (>60 ml/min/1.73 sqM) Glucose (74-99) mg/dL Calcium (8.4-10.2) mg/dL Magnesium (1.6-2.3) mg/dL Total Bilirubin (0.2-1.3) mg/dL AST (14-36) U/L ALT (4-34) U/L Alkaline Phosphatase (38-126) U/L Troponin I <0.012 (0.000-0.034) ng/mL NT-Pro-B Natriuret Pep pg/mL Total Protein (6.3-8.2) g/dL Albumin (3.5-5.0) g/dL Lipase (23-300) U/L - EKG Data -: EKG Interpreted by Me EKG Comments: 12-lead Electrocardiogram Interpretation Note EKG was reviewed and interpreted by myself. 12-lead ECG performed at 0832 is interpreted by me as revealing normal sinus rhythm at a rate of 78 beats per minute. [place] is normal. UT interval is 171 ms, QRS duration is 84 ms, QTc is 451 ms.. There were no ST or T wave abnormalities to suggest myocardial ischemia or injury. R wave progression across the precordium was satisfactory. By my interpretation this EKG is non-diagnostic for acute ischemia. Disposition Clinical Impression: Chest pain Disposition: ADMITTED IP TO THIS HOSP Condition: Stable Time of Disposition: 11:25
[2023-05-04] MEDS: KETOROLAC 15 MG/ML 1 ML VIAL IVP STA (11:51)
[2023-05-04] MEDS: KETOROLAC 15 MG/ML 1 ML VIAL IVP SCH (11:52)
--- NOTE | 2023-05-04 12:51 | P.HPIM ---
History of Present Illness 33-year-old pleasant female came in with complaints of retrosternal chest pain sharp in nature moderate severity radiating to the back of the chest denies any nausea vomiting lightheadedness chest pain is not associated with deep breathing food, does not change with exertion does not change with movement of the chest nontender. Patient had an EKG which which is not available in the system yet. Troponin is negative. Patient had a history of pericardial effusion in the past did not require any pericardial window with at that time patient has history of patent foraminal ovale and aortic regurgitation. Patient does not have any pericardial friction rub patient was treated for pleurisy in the past. Patient is presently on Toradol at this time. Patient still has her gallbladder. Does have some tenderness in the right upper quadrant. REVIEW OF SYSTEMS: CONSTITUTIONAL: No fever, no malaise, no fatigue. HEENT: No recent visual problems or hearing problems. Denied any sore throat. CARDIOVASCULAR: No orthopnea, PND, no palpitations, no syncope. PULMONARY: No shortness of breath, no cough, no hemoptysis. GASTROINTESTINAL: No diarrhea, no nausea, no vomiting, no abdominal pain. NEUROLOGICAL: No headaches, no weakness, no numbness. HEMATOLOGICAL: Denies any bleeding or petechiae. GENITOURINARY: Denies any burning micturition, frequency, or urgency. MUSCULOSKELETAL/RHEUMATOLOGICAL: Denies any joint pain, swelling, or any muscle pain. ENDOCRINE: Denies any polyuria or polydipsia. The rest of the 14-point review of systems is negative. PHYSICAL EXAMINATION: GENERAL: The patient is alert and oriented x3, not in any acute distress. Well developed, well nourished. HEENT: Pupils are round and equally reacting to light. EOMI. No scleral icterus. No conjunctival pallor. Normocephalic, atraumatic. No pharyngeal erythema. No thyromegaly. CARDIOVASCULAR: S1 and S2 present. No murmurs, rubs, or gallops. PULMONARY: Chest is clear to auscultation, no wheezing or crackles. ABDOMEN: Soft, nontender, nondistended, normoactive bowel sounds. No palpable organomegaly. MUSCULOSKELETAL: No joint swelling or deformity. EXTREMITIES: No cyanosis, clubbing, or pedal edema. NEUROLOGICAL: Gross neurological examination did not reveal any focal deficits. SKIN: No rashes. Assessment and plan -Chest pain radiating to the back: Differential is being cholelithiasis, cholecystitis, pericarditis. Will obtain echocardiogram and ultrasound of the right upper quadrant patient liver enzymes are essentially within normal limits. Patient cardiology was consulted from ER. -Hypothyroidism continue with levothyroxine -Hypertension DVT prophylaxis patient is on subcutaneous heparin 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 , ovarian cyst History of Any Multi-Drug Resistant Organisms: None Reported Additional Past Surgical History / Comment(s): "heart surgery" Past Psychological History: No Psychological Hx Reported Smoking Status: Current every day smoker Past Alcohol Use History: Daily Past Drug Use History: Marijuana Medications and Allergies Home Medications Medication Instructions Recorded Confirmed Type Levothyroxine Sodium 137 mcg PO DAILY 05/04/23 05/04/23 History lisinopriL [Zestril] 2.5 mg PO DAILY 05/04/23 05/04/23 History Allergies Allergy/AdvReac Type Severity Reaction Status Date / Time No Known Allergies Allergy Verified 05/04/23 12:41 Physical Exam Vitals: Vital Signs Temp Pulse Resp BP Pulse Ox 05/04/23 11:53 75 20 111/75 97 05/04/23 10:47 76 18 116/56 99 05/04/23 09:10 78 18 134/64 99 05/04/23 08:30 98.2 F 90 16 125/78 98 Intake and Output 05/03/23 05/04/23 05/04/23 22:59 06:59 14:59 Other: Weight 54.431 kg Results CBC & Chem 7: 05/04/23 09:05 05/04/23 09:05 Labs: Abnormal Lab Results - Last 24 Hours (Table) 05/04/23 Range/Units 09:05 Chloride 108 H (98-107) mmol/L BUN 22 H (7-17) mg/dL
[2023-05-04] MEDS: FAMOTIDINE 20 MG TAB PO SCH (13:35)
[2023-05-04] MEDS: HEPARIN SODIUM,PORCINE 5,000 UNIT/ML 1 ML VIAL SQ SCH (15:27)
[2023-05-04] MEDS: MORPHINE SULFATE 4 MG/ML SYRINGE IVP PRN (15:30)
[2023-05-04] MEDS: KETOROLAC 15 MG/ML 1 ML VIAL IVP PRN (20:15)
[2023-05-04] MEDS: MELATONIN 5 MG TABLET PO PRN (23:09)
[2023-05-05 02:08] VITALS: RESP 15
[2023-05-05] MEDS: LEVOTHYROXINE 137 MCG TAB PO SCH (06:28)
--- NOTE | 2023-05-05 08:21 | P.CRDCN ---
History of Present Illness History of present illness: HISTORY OF PRESENT ILLNESS: This is a 32-year-old female with a past medical history significant for thyroid surgery, ASD closure, valvular heart disease, pericarditis, and pleural effusion with previous pericardiocentesis. Patient follows in the office with Dr. Diaz. We have been asked to see the patient in consultation for chest pain. Patient examined at the bedside. Patient states she began having pain in her chest on Thursday night. She states this began while she was laying in bed. She reports it feels like somebody is stabbing her in the middle of her chest. She reports the pain radiates to her back. She reports mild chest pain this morning. She states the pain is worse with deep inspiration. Patient is not improved or worsened when sitting up. DIAGNOSTICS: - EKG reveals sinus mechanism with no signs of acute ischemia - Laboratory data: Troponin negative x 3. proBNP 395. - Current home cardiac medications include lisinopril 2.5 mg daily. -Patient underwent ALEJANDRA in June 2021 revealing aortic valve is tricuspid and functionally normally. There is small perforation in the center of the noncoronary cusp creating moderate aortic insufficiency. No diastolic flow reversal of the descending aorta. Trace mitral regurgitation. Tricuspid valve is normal. Intra-atrial septum is intact. There is ASD closure device in place with no significant contact with aortic valve. There is no shunt by color or agitated saline. Left atrial appendage has no thrombus. Left ventricular size appears normal. Left ventricular function is normal with an ejection fraction of 55%. There is a moderate to large pleural effusion. No pericardial effusion. REVIEW OF SYSTEMS: At the time of my exam: CONSTITUTIONAL: Denies fever or chills. HEENT: Denies blurred vision, vision changes, or eye pain. Denies hemoptysis CARDIOVASCULAR: Denies chest pain. Denies orthopnea. Denies PND. Denies palpitations RESPIRATORY: Denies shortness of breath. GASTROINTESTINAL: Denies abdominal pain. Denies nausea or vomiting. HEMATOLOGIC: Denies bleeding disorders. GENITOURINARY: Denies any blood in urine. SKIN: Denies pruitis. Denies rash. PHYSICAL EXAM: VITAL SIGNS: Reviewed. GENERAL: Well-developed in no acute distress. HEENT: Head is normocephalic. Pupils are equal, round. Sclerae anicteric. Mucous membranes of the mouth are moist. Neck supple. No JVD or thyromegaly LUNGS: Respirations even and unlabored. Lungs essentially clear to auscultation bilaterally. HEART: Regular rate and rhythm. S1 and S2 heard. Systolic and diastolic murmur noted ABDOMEN: Soft. Nondistended. Nontender. EXTREMITIES: Normal range of motion. No clubbing or cyanosis. Peripheral pulses intact. No lower extremity edema NEUROLOGIC: Awake and alert. Oriented x 3. 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 Signing provider agrees with the documented findings, assessment, and plan of care documented by MANAGER ED as a scribe. 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 , ovarian cyst History of Any Multi-Drug Resistant Organisms: None Reported Additional Past Surgical History / Comment(s): "heart surgery" Past Anesthesia/Blood Transfusion Reactions: No Reported Reaction Past Psychological History: No Psychological Hx Reported Smoking Status: Current every day smoker Past Alcohol Use History: Daily Past Drug Use History: Marijuana Medications and Allergies Home Medications Medication Instructions Recorded Confirmed Type Levothyroxine Sodium 137 mcg PO DAILY 05/04/23 05/04/23 History lisinopriL [Zestril] 2.5 mg PO DAILY 05/04/23 05/04/23 History Allergies Allergy/AdvReac Type Severity Reaction Status Date / Time No Known Allergies Allergy Verified 05/04/23 12:41 Physical Exam Vitals: Vital Signs Temp Pulse Pulse Resp BP BP Pulse Ox 05/05/23 01:26 68 05/05/23 00:45 98.3 F 74 15 122/63 99 05/05/23 00:01 61 12 106/48 96 05/04/23 22:00 67 15 107/47 97 05/04/23 21:00 72 26 H 108/61 96 05/04/23 20:00 88 15 112/52 96 05/04/23 19:50 75 15 112/52 96 05/04/23 18:03 97.6 F 68 18 105/53 96 05/04/23 17:18 66 20 115/55 96 05/04/23 15:23 77 20 120/62 97 05/04/23 13:36 87 20 123/65 98 05/04/23 11:53 75 20 111/75 97 05/04/23 10:47 76 18 116/56 99 05/04/23 09:10 78 18 134/64 99 05/04/23 08:30 98.2 F 90 16 125/78 98 Intake and Output 05/04/23 05/05/23 05/05/23 22:59 06:59 14:59 Other: # Voids 2 Weight 54.431 kg Results 05/05/23 05:59 05/05/23 05:59 Cardiac Enzymes 05/04/23 05/04/23 05/04/23 Range/Units 09:05 09:05 12:06 AST 21 (14-36) U/L Troponin I <0.012 <0.012 (0.000-0.034) ng/mL 05/04/23 Range/Units 16:17 AST (14-36) U/L Troponin I <0.012 (0.000-0.034) ng/mL Coagulation 05/04/23 Range/Units 09:05 PT 12.0 (10.0-12.5) sec APTT 22.0 (22.0-30.0) sec CBC 05/04/23 Range/Units 09:05 WBC 6.9 (3.8-10.6) k/uL RBC 4.26 (3.80-5.40) m/uL Hgb 13.1 (11.4-16.0) gm/dL Hct 38.5 (34.0-46.0) % Plt Count 220 (150-450) k/uL Comprehensive Metabolic Panel 05/04/23 Range/Units 09:05 Sodium 137 (137-145) mmol/L Potassium 4.1 (3.5-5.1) mmol/L Chloride 108 H (98-107) mmol/L Carbon Dioxide 23 (22-30) mmol/L BUN 22 H (7-17) mg/dL Creatinine 0.67 (0.52-1.04) mg/dL Glucose 93 (74-99) mg/dL Calcium 9.2 (8.4-10.2) mg/dL AST 21 (14-36) U/L ALT 12 (4-34) U/L Alkaline Phosphatase 70 (38-126) U/L Total Protein 6.6 (6.3-8.2) g/dL Albumin 4.2 (3.5-5.0) g/dL Current Medications Generic Name Dose Route Start Last Admin Trade Name Freq PRN Reason Stop Dose Admin Famotidine 20 mg 05/04/23 13:00 05/04/23 20:17 Famotidine 20 Mg Tab PO 20 mg BID ANTHONY Administration Heparin Sodium (Porcine) 5,000 unit 05/04/23 16:00 05/04/23 23:16 Heparin Sodium,Porcine 5,000 Unit/Ml 1 Ml Vial SQ 5,000 unit Q8HR ANTHONY Administration Ketorolac Tromethamine 15 mg 05/04/23 16:08 05/04/23 20:15 Ketorolac 15 Mg/Ml 1 Ml Vial IVP 05/09/23 11:39 15 mg Q6HR PRN Administration Moderate Pain (Scale 4 to 6) Levothyroxine Sodium 137 mcg 05/05/23 06:30 05/05/23 06:28 Levothyroxine 137 Mcg Tab PO 137 mcg 0630 ANTHONY Administration Melatonin 5 mg 05/04/23 22:53 05/04/23 23:09 Melatonin 5 Mg Tablet PO 5 mg HS PRN Administration Insomnia Morphine Sulfate 4 mg 05/04/23 11:39 05/05/23 01:13 Morphine Sulfate 4 Mg/Ml Syringe IVP 4 mg Q4HR PRN Administration Pain Naloxone HCl 0.2 mg 05/04/23 11:35 Naloxone 0.4 Mg/Ml 1 Ml Vial IV Q2M PRN Opioid Reversal Intake and Output 05/04/23 05/05/23 05/05/23 22:59 06:59 14:59 Other: # Voids 2 Weight 54.431 kg 05/04/23 09:05 05/04/23 09:05
--- NOTE | 2023-05-05 08:35 | US ---
EXAMINATION TYPE: US gallbladder DATE OF EXAM: 05/05/2023 COMPARISON: CT 05/04/2023 CLINICAL INDICATION: Female, 32 years old with history of Cholelithiasis; Pt states chest pain that r adiates to back TECHNIQUE: Multiple sonographic images of the right upper quadrant are obtained. FINDINGS: EXAM MEASUREMENTS: Liver Length: 14.1 cm Gallbladder Wall: 0.1 cm CBD: 0.5 cm Right Kidney: 10.8 x 4.3 x 5.3 cm Pancreas: wnl Liver: wnl Gallbladder: wnl Evidence for sonographic Tang's sign: No CBD: wnl Right Kidney: wnl IMPRESSION: Unremarkable sonographic examination of the right upper quadrant.
[2023-05-05 08:39] LABS: BUN/Creat Ratio 24.67 Ratio (12.00-20.00); Basophils # (A) 0.07 X 10*3/uL (0.00-0.10); Basophils % (A) 1.2 %; Blood Urea Nitrogen 14.8 mg/dL (9.0-27.0); Calcium 8.4 mg/dL (8.7-10.3); Carbon Dioxide 22.9 mmol/L (21.6-31.8); Chloride 108 mmol/L (96-109); Eosinophils # (A) 0.14 X 10*3/uL (0.04-0.35); Eosinophils % (A) 2.4 %; Glucose 89 mg/dL (70-110); HCT 36.6 % (37.2-46.3); HGB 12.3 g/dL (12.0-15.0); Lymphocytes # (A) 2.33 X 10*3/uL (0.90-5.00); Lymphocytes % (A) 39.4 %; MCH 29.9 pg (27.0-32.0); MCHC 33.6 g/dL (32.0-37.0); MCV 88.8 FL (80.0-97.0); Mean Platelet Volume 9.8 FL (9.5-12.2); Monocytes % (A) 8.5 %; NRBC Per 100 WBC 0 X 10*3/uL (0.00-0.01); Neutrophils # (A) 2.85 X 10*3/uL (1.80-7.70); Neutrophils % (A) 48.2 %; Platelet Count 210 X 10*3/uL (140-440); Potassium 4.2 mmol/L (3.5-5.5); RBC 4.12 X 10*6/uL (4.10-5.20); RDW 12.5 % (11.5-14.5); Sodium 139 mmol/L (135-145); WBC 5.91 X 10*3/uL (4.50-10.00)
[2023-05-05] MEDS: COLCHICINE 0.6 MG EACH PO SCH (09:05)
[2023-05-05] MEDS: IBUPROFEN 600 MG TAB PO SCH (09:05)
[2023-05-05] MEDS: PANTOPRAZOLE 40 MG TABLET PO SCH (09:09)
--- NOTE | 2023-05-05 11:45 | CA ---
Transthoracic Echo Report Name: Lupe Sidhu Age: 32 Gender: F : 1990 Exam Date: 05/05/2023 08:27 Exam Location: [facility] Ht (in): 64 Wt (lb): 120 Ordering Physician: Richard Curry MD Attending/Referring Phys: Matlab Developer Stephy Costa RDCS Procedure CPT: Indications: Chest pian Cardiac Hx: Technical Quality: Fair Contrast 1: Total Dose (mL): Contrast 2: Total Dose (mL): MEASUREMENTS (Male / Female) Normal Values 2D ECHO LV Diastolic Diameter PLAX 5.0 cm 4.2 - 5.9 / 3.9 - 5.3 cm LV Systolic Diameter PLAX 3.5 cm IVS Diastolic Thickness 1.2 cm 0.6 - 1.0 / 0.6 - 0.9 cm LVPW Diastolic Thickness 1.0 cm 0.6 - 1.0 / 0.6 - 0.9 cm LV Relative Wall Thickness 0.4 RV Internal Dim ED PLAX 3.5 cm LA Volume 61.8 cm??? 18 - 58 / 22 - 52 cm??? LA Volume Index 39.5 cm???/m??? 16 - 28 cm???/m??? M-MODE Aortic Root Diameter MM 2.6 cm LA Systolic Diameter MM 2.8 cm LA Ao Ratio MM 1.1 AV Cusp Separation MM 2.2 cm DOPPLER AV Peak Velocity 188.0 cm/s AV Peak Gradient 14.1 mmHg AV Mean Velocity 138.9 cm/s AV Mean Gradient 8.4 mmHg AV Velocity Time Integral 47.6 cm AI Peak Velocity 516.6 cm/s AI Peak Gradient 106.7 mmHg AI Pressure Half Time 332.4 ms LVOT Peak Velocity 155.2 cm/s LVOT Peak Gradient 9.6 mmHg LVOT Velocity Time Integral 40.9 cm MV Area PHT 3.3 cm??? Mitral E Point Velocity 74.2 cm/s Mitral A Point Velocity 67.8 cm/s Mitral E to A Ratio 1.1 MV Deceleration Time 228.6 ms MV E' Velocity 9.1 cm/s Mitral E to MV E' Ratio 8.2 TR Peak Velocity 236.1 cm/s TR Peak Gradient 22.3 mmHg Right Ventricular Systolic Press 26.7 mmHg FINDINGS Left Ventricle Mildly increased left ventricular wall thickness. Left ventricular cavity size normal. Normal left ventricular systolic function with no obvious regional wall motion abnormalities. Left ventricular ejection fraction is estimated at 55-60 %. Right Ventricle Normal right ventricular size and function. Right ventricular systolic pressure within normal limits. Right Atrium Normal right atrial size. Left Atrium Mildly increased left atrial volume. Atrial septal closure device noted. Mitral Valve Structurally normal mitral valve. Moderate mitral regurgitation. Aortic Valve Trileaflet aortic valve. No aortic stenosis. Moderate aortic regurgitation. Tricuspid Valve Structurally normal tricuspid valve. Mild tricuspid regurgitation. Pulmonic Valve Structurally normal pulmonic valve. Trace pulmonic regurgitation. Pericardium No pericardial effusion. Aorta Normal size aortic root and proximal ascending aorta. CONCLUSIONS Normal LV systolic function Moderate mitral regurgitation Moderate aortic regurgitation Previewed by: Dr. Dilan Greco MD (Electronically Signed) Final Date: 05 May 2023 11:45
[2023-05-05 14:09] VITALS: BP 114/65; PULSE 76; TEMP 98.2; BMI 20.5
== END 2023-05-05 18:32 | disposition home or self-care (01) ==
LOC: EC 08:18 → 6NMEDSUR 11:35
PROVIDERS: ADMIT Hospitalist; ATTEND Hospitalist
DX: R07.89 Other chest pain (principal); E03.9 Hypothyroidism, unspecified; I10 Essential (primary) hypertension; I35.1 Nonrheumatic aortic (valve) insufficiency; F17.200 Nicotine dependence, unspecified, uncomplicated; Z87.74 Personal history of (corrected) congenital malformations of heart and circulatory system; Z79.890 Hormone replacement therapy; Z79.899 Other long term (current) drug therapy
CPT/HCPCS: 96376 ×2; 96372 ×2; 96361; 96374; 96375; 99285; 36415; 93005; 93306; 84439; 83880; 80053; 80048; 85652; 84443; 83690; 83735; 84484; 85025 ×2; 85610; 85730; 86140; 76705; 71275; 74174; G0378 ×2; J2270 ×3; J1644 ×2; J1885; Q9967

== ENCOUNTER → 2023-07-31 | Outpatient (CLI) | payer BC ==
[2023-07-31 18:31] LABS: T4, Free (Free Thyroxine) 2.31 ng/dL (0.80-1.80)
== END | disposition home or self-care (01) ==
LOC: LABWHC1 09:56
PROVIDERS: ATTEND Internal Medicine
DX: C73 Malignant neoplasm of thyroid gland (principal); E03.9 Hypothyroidism, unspecified
CPT/HCPCS: 36415; 84432; 84439; 84443; 86800

== ENCOUNTER → 2023-07-31 | Outpatient (CLI) | payer BC ==
[2023-07-31 16:56] LABS: Basophils # (A) 0.08 X 10*3/uL (0.00-0.10); Basophils % (A) 1.2 %; Eosinophils # (A) 0.14 X 10*3/uL (0.04-0.35); HCT 42.6 % (37.2-46.3); HGB 14.2 g/dL (12.0-15.0); Lymphocytes # (A) 2.13 X 10*3/uL (0.90-5.00); Lymphocytes % (A) 31.1 %; MCHC 33.3 g/dL (32.0-37.0); MCV 90.1 FL (80.0-97.0); Mean Platelet Volume 9.5 FL (9.5-12.2); Monocytes # (A) 0.56 X 10*3/uL (0.20-1.00); Monocytes % (A) 8.2 %; NRBC Per 100 WBC 0 X 10*3/uL (0.00-0.01); Neutrophils # (A) 3.93 X 10*3/uL (1.80-7.70); Neutrophils % (A) 57.4 %; Platelet Count 293 X 10*3/uL (140-440); RBC 4.73 X 10*6/uL (4.10-5.20); RDW 12.5 % (11.5-14.5); WBC 6.85 X 10*3/uL (4.50-10.00)
[2023-07-31 17:20] LABS: Blood Urea Nitrogen 13.6 mg/dL (9.0-27.0); Carbon Dioxide 24.8 mmol/L (21.6-31.8); Chloride 108 mmol/L (96-109); Potassium 4.7 mmol/L (3.5-5.5); Sodium 144 mmol/L (135-145)
== END | disposition home or self-care (01) ==
LOC: LABPAT 09:49
PROVIDERS: ATTEND Internal Medicine
DX: Z01.812 Encounter for preprocedural laboratory examination (principal); C73 Malignant neoplasm of thyroid gland; E03.9 Hypothyroidism, unspecified; R07.9 Chest pain, unspecified
CPT/HCPCS: 36415; 80051; 82565; 84520; 85025

== ENCOUNTER 2023-08-07 10:10 | Day surgery (SDC) | payer BC ==
[2023-08-05 16:08] VITALS: BMI 21.2
[~2023-08-07 10:10] MED LIST: ALPRAZolam 0.25 MG TAB PO PRN; ALPRAZolam 0.5 MG TAB PO PRN; ASPIRIN 325 MG TAB PO STA; HEPARIN SODIUM,PORCINE (1 ML) 2,500 UNIT in SODIUM CHLORIDE 0.9% 250 ML IRRIGATION PRN; HEPARIN SODIUM,PORCINE 10,000 UNIT in SODIUM CHLORIDE 0.9% 1,000 ML IRRIGATION PRN; NITROGLYCERIN SL TABS 0.4 MG TAB SUBLINGUAL PRN; SODIUM CHLORIDE 0.9% 1,000 ML in EMPTY BAG 1 BAG IV SCH
[2023-08-07 10:54] VITALS: RESP 16; TEMP 98.6
[2023-08-07 10:58] LABS: African American GFR (CKD) >90 (>60 ml/min/1.73 sqM); Anion Gap 6 mmol/L; Blood Urea Nitrogen 14 mg/dL (7-17); Calcium 9.5 mg/dL (8.4-10.2); Carbon Dioxide 24 mmol/L (22-30); Chloride 109 mmol/L (98-107); Glucose 89 mg/dL (74-99); Non-African American GFR(CKD) >90 (>60 ml/min/1.73 sqM); Potassium 3.7 mmol/L (3.5-5.1); Sodium 139 mmol/L (137-145)
[2023-08-07] MEDS ORDERED: VERAPAMIL 2.5 MG/ML 2 ML AMP ONE (11:42)
[2023-08-07] MEDS ORDERED: LIDOCAINE 1% INJ 10MG/ML (20 ML MDV) ONE ×3 (11:42→15:13)
[2023-08-07] MEDS ORDERED: fentaNYL (PF) 50 MCG/ML 2 ML AMP ONE (11:43)
[2023-08-07] MEDS ORDERED: HEPARIN SODIUM 1,000 UN/ML (10ML VL) ONE (11:47)
[2023-08-07] MEDS: IV FLUID CONTINUATION 1,000 ML IV ONE (12:05)
[2023-08-07] MEDS: fentaNYL (PF) 50 MCG/ML 2 ML AMP IVP ONE (12:28)
[2023-08-07] MEDS: MIDAZOLAM 2 MG/2 ML VIAL IVP ONE ×2 (12:28→12:59)
[2023-08-07] MEDS: LIDOCAINE 1% INJ 10MG/ML (20 ML MDV) SQ ONE ×2 (12:31→12:59)
[2023-08-07] MEDS: NITROGLYCERIN 1000MCG/10ML SYRINGE INTRACORON ONE (13:05)
[2023-08-07] MEDS: IOPAMIDOL-370 100ML BTL INJ ONE ×3 (13:16→13:18)
[2023-08-07 13:17] LABS: O2 Sat Blood Gas 78.3 %
[2023-08-07 13:18] LABS: O2 Sat Blood Gas 98.1 %
--- NOTE | 2023-08-07 14:08 | P.CARDCATH ---
Description of Procedure: PROCEDURES PERFORMED: Left and right heart catheterization, bilateral coronary angiography, ultrasound guided arterial access, intracoronary nitroglycerin INDICATION: Recurrent chest pain CONSENT:I have discussed the risks, benefits and alternative therapies for the above-mentioned procedure and for both sedation/analgesia as well as necessary blood product administration, if indicated, as they pertain to this patient. The patient has indicated understanding and acceptance of the risks and procedures discussed. PROCEDURE: After the risks, benefits and alternatives of the above mentioned procedure explained in detail with the patient, informed consent was obtained. Patient was taken to the catheterization lab and prepped and draped in usual fashion. Ultrasound guidance was used to assess for arterial access. 1% lidocaine was used to anesthetize the right radial artery as well as right brachial area. Using modified Seldinger technique a 6[place] sheath was placed in the right brachial vein with ultrasound guidance. The right radial artery was cannulated 3 times then the right ulnar artery was cannulated once with inability to pass the wire past the forarm secondary to suspected vasospasm. Therefore the decision was made to perform femoral approach. A 6[place] sheath was placed in the right femoral artery using modified Seldinger technique and ultrasound guidance. a 6-[place] catheter was inserted into the right atrium, right ventricle, pulmonary artery and pulmonary capillary wedge position. Pressure measurement and oxygen saturation measurements were obtained. Thermodilution was performed. Left coronary angiography was performed with a 6[place] JL 4.0 catheter and right coronary angiography was performed with a 6[place] FR4 catheter in various views. With engaging the RCA, the catheter did dive and there was dampening noted. There was proximal spasm noted with improvement with intracoronary nitro. There were mild EKG changes intermittently and patient did have episodes of chest pain throughout procedure. A 6[place] FR4 catheter was inserted into the left ventricle and pressure measurements were obtained. The right femoral angiogram showed adequate anatomy for closure and a 6[place] Angio-Seal was placed in the right femoral artery with hemostasis achieved. The right brachial sheath was removed and pressure held with hemostasis achieved. The patient tolerated the procedure well. Patient was transported back to the post catheterization holding area in stable condition. Conscious Sedation: Patient was monitored under the direct supervision of myself for conscious sedation using Versed and fentanyl for a total duration of 46 minutes HEMODYNAMICS: Ao: 117/54 LV: 129/3, LVEDP 15 PCWP: 7 PA: 21/8 RV: 26/1 RA: 4 RA oxygen saturation: 78% PA oxygen saturation: 76% Right femoral artery oxygen saturation: 98% CO by thermodilution: 5.6 L/min CI by thermodilution: 3.5 L/min/m2 CO by JUICE: 6.0 L/min CI by JUICE: 3.8 L/min/m2 SELECTIVE CORONARY ARTERIOGRAPHY: LEFT MAIN: The left main is a large caliber vessel which bifurcates into the LAD and circumflex. There is no significant stenosis. LEFT ANTERIOR DESCENDING CORONARY ARTERY: LAD is a large caliber vessel which wraps around to the apex. There is no significant stenosis. There is focal myocardial bridging of the mid LAD. LEFT CIRCUMFLEX CORONARY ARTERY: Left circumflex is a moderate caliber vessel without significant stenosis. RIGHT CORONARY ARTERY: The right coronary artery is a large caliber vessel which gives off a PDA and PLV branch and is the dominant vessel. There is no significant stenosis. There was initial spasm of the proximal to mid RCA resulting in 40-50% narrowing however improved with nitro. FINAL IMPRESSION: 1. Normal coronary arteries as described above. 2. Normal left and right sided filling pressures 3. Normal cardiac outpt and cardiac index 4. Myocardial bridging of the mid LAD 5. Vasospasm of the proximal RCA, likely mainly related to catheter manipulation, improved with nitro 6. Inability to easily pass wire from right radial and right ulnar artery with likely vasospasm of the radial/ ulnar arteries PLAN: 1. Aggressive risk factor modification per most recent ACC/AHA guidelines. 2. Myocardial bridging does appear significant enough that may be causing symptoms and may consider antianginals. Additionally RCA vasospasm likely mainly related to catheter manipulation however radial and ulnar vasospasm with possible propensity for spasm. Consider vasodilators.
[2023-08-07 16:43] VITALS: BP 132/65; PULSE 60
== END 2023-08-07 17:26 | disposition home or self-care (01) ==
LOC: CATHCVL 10:10
PROVIDERS: ATTEND Internal Medicine
DX: Q21.10 Atrial septal defect, unspecified (principal); Q24.5 Malformation of coronary vessels; I47.10 Supraventricular tachycardia, unspecified; J90 Pleural effusion, not elsewhere classified; Z79.1 Long term (current) use of non-steroidal anti-inflammatories (NSAID); Z79.899 Other long term (current) drug therapy
CPT/HCPCS: 93460; 76937; 80048; 85018; 82810; 84703; 99152; 99153 ×2; C1760; C1769 ×2; C1894 ×2; C1751; J2250; J2001; J3010; Q9967; J2305

== ENCOUNTER → 2023-08-10 | Outpatient (CLI) | payer BC ==
--- NOTE | 2023-08-10 16:44 | US ---
EXAMINATION TYPE: US thyroid st tissue head/neck DATE OF EXAM: 08/10/2023 COMPARISON: 09/25/2023 CLINICAL INDICATION: Female, 32 years old with history of C73 MALIGNANT NEOPLASM OF THYROID GLAND; GLAND SIZE: Right Lobe: Surgically absent cm Overall Parenchyma: Left Lobe: Surgically absent cm Overall Parenchyma: Isthmus Thickness: cm NODULES None; No residual tissue or other abnormalities of the neck or thyroid bed seen. Bilateral neck scanned, no evidence of lymphadenopathy. IMPRESSION: Surgically absent thyroid gland no masses or lymphadenopathy identified.
== END | disposition home or self-care (01) ==
LOC: RADUSWWP 15:44
PROVIDERS: ATTEND Internal Medicine
DX: C73 Malignant neoplasm of thyroid gland (principal)
CPT/HCPCS: 76536

== ENCOUNTER → 2023-11-18 | Outpatient (CLI) | payer OTHER ==
--- NOTE | 2023-11-18 13:30 | XR ---
EXAMINATION TYPE: XR hand complete LT DATE OF EXAM: 11/18/2023 COMPARISON: None HISTORY: Crush injury middle finger TECHNIQUE: 3 view left hand FINDINGS: In the AP direction subtle lucency within the tuft and distal aspect of the distal phalanx middle finger may be present. As identified on the AP projection nonbound additional views. Fracture and artifact are within the differential. Follow-up can be performed as clinically indicated. Remainder the hand appears intact. Joint spaces are preserved. Soft tissues are normal. IMPRESSION: 1. Clinical consideration for an occult fracture of the distal phalanx middle finger. Clinical corre lation recommended. [facility], , 11/18/2023 1:28 PM
== END | disposition home or self-care (01) ==
LOC: RADXRMAIN 12:11
PROVIDERS: ATTEND Emergency Medicine
DX: S67.193A Crushing injury of left middle finger, initial encounter

== ENCOUNTER → 2023-11-27 | Outpatient (CLI) | payer BC ==
--- NOTE | 2023-11-27 09:59 | USB ---
Reason for Exam: Clinical finding. Patient History: Menarche at age 11. Paternal grandmother had breast cancer. Risk Values: Erica 5 year model risk: 0.2%. NCI Lifetime model risk: 7.5%. Technique: Method: Whole Breast Automated. Findings: The whole breast of both breasts, the axilla of both breasts and the retroareolar of both breasts were scanned. Ultrasound of the left breast demonstrates an elongated smoothly marginated hypoechoic mass at the left 2:00 position 7 cm from the nipple measuring 1.1 x 0.4 cm. This is likely reflective of a fibroadenoma. Tissue diagnosis is recommended for confirmation purposes. No additional solid masses within the left breast. The right breast is free of solid or cystic mass. Given the aforementioned findings bilateral mammography is advised.. Overall Assessment: Incomplete: need additional imaging evaluation, BI-RAD 0 Management: Diagnostic Mammogram of both breasts. A clinical breast exam by your physician is recommended on an annual basis and results should be correlated with mammographic findings. This exam should not preclude additional follow-up of suspicious palpable abnormalities. Results were given to the patient verbally at the time of exam. [facility], , 11/27/2023 9:45 AM. Electronically signed and approved by: Gilmar Barbosa M.D. Radiologis
--- NOTE | 2023-11-27 10:05 | MM ---
Reason for Exam: Clinical finding. Baseline mammogram. Patient History: Menarche at age 11. Paternal grandmother had breast cancer. Last menstrual period: 11/16/2023 Risk Values: Erica 5 year model risk: 0.2%. NCI Lifetime model risk: 7.5%. Prior Study Comparison: Patient's first Mammogram. No prior studies available for comparison. Tissue Density: The breasts are extremely dense, which lowers the sensitivity of mammography. Findings: Analyzed By CAD. Noted are indeterminate microcalcifications 3:00 position left breast for which stereotactic core biopsy recommended. There is also a smaller group of microcalcifications within the inner upper left breast at approximately the 9-10 o'clock position. Biopsy of both sites is advised.No suspicious calcifications or masses right breast. Overall Assessment: Suspicious, BI-RAD 4 Management: Stereotactic Core Biopsy of the left breast. . Results were given to the patient verbally at the time of exam. Patient should continue monthly self-breast exams. A clinical breast exam by your physician is recommended on an annual basis. This exam should not preclude additional follow-up of suspicious palpable abnormalities. Note on Erica scores and lifetime risk: 1. A Erica score greater than 3% is considered moderate risk. If this is the case, consider specialist referral to assess eligibility for a risk reducing agent. 2. If overall lifetime risk for the development of breast cancer is 20% or higher, the patient may qualify for future screening with alternating mammogram and breast MRI. [facility], , 11/27/2023 10:01 AM. Electronically signed and approved by: Gilmar Barbosa M.D. Radiologis
--- NOTE | 2023-11-27 11:45 | CT ---
EXAMINATION TYPE: CT knee RT wo con DATE OF EXAM: 11/27/2023 COMPARISON: None HISTORY: Knee pain, effusion CT DLP: 266 mGycm Automated exposure control for dose reduction was used. Unenhanced CT of the right knee was performed in the axial coronal and sagittal planes. FINDINGS: No evidence for fracture or dislocation. No sizable joint effusion present. No evidence for soft tiss ue mass. No bony destructive process. Joint space appears well preserved. IMPRESSION: INTACT [facility], , 11/27/2023 11:42 AM
--- NOTE | 2023-11-27 20:24 | US ---
EXAMINATION TYPE: US abdomen complete DATE OF EXAM: 11/27/2023 COMPARISON: 05/05/23 CLINICAL INDICATION: Female, 33 years old with history of Z87.42 HX OF OVARIAN CYST N94.89 PAIN OF OV AISHA; abdominal pain TECHNIQUE: Grayscale and color Doppler imaging of the abdomen was performed. FINDINGS: EXAM MEASUREMENTS: Liver Length: 12.6 cm Gallbladder Wall: 0.2 cm CBD: 0.3 cm Spleen: 9.5 cm Right Kidney: 10.5 x 5.1 x 4.8 cm Left Kidney: 11.6 x 4.5 x 3.5 cm INFORMATICS PHARMACIST NOTES: Pancreas: parts seen appear wnl Liver: wnl Gallbladder: wnl Evidence for sonographic Tang's sign: No CBD: wnl Spleen: wnl Right Kidney: inf pole limited due to bowel gas Left Kidney: wnl Upper IVC: wnl Abd Aorta: wnl IMPRESSION: 1. Unremarkable abdomen ultrasound. [facility], Workstation: [facility], 11/27/2023 8:22 PM
--- NOTE | 2023-11-27 21:14 | US ---
EXAMINATION TYPE: US pelvis complete transvag DATE OF EXAM: 11/27/2023 COMPARISON: 12/04/22 CLINICAL INDICATION: Female, 33 years old with history of Z87.42 HX OF OVARIAN CYST N94.89 PAIN OF OV AISHA; ovarian cyst TECHNIQUE: . Transabdominal sonographic images of the pelvis were acquired. Transvaginal sonographi c images were medically necessary to better assess the following anatomy: ovaries Date of LMP: 11/17/23 EXAM MEASUREMENTS: Uterus: 7.4 x 46 x 3.6 cm Endometrial Stripe: 0.8 cm Right Ovary: 4.8 x 4.2 x 2.7 cm Left Ovary: 3.8 x 3.1 x 1.9 cm 1. Uterus: Anteverted wnl 2. Endometrium: wnl 3. Right Ovary: complex area seen measuring 2.1 x 2.0 x 1.7cm. Mostly cystic area seen measuring 2.4 x 2.2 x 2.2cm 4. Left Ovary: wnl 5. Bilateral Adnexa: wnl 6. Posterior cul-de-sac: small amount of free fluid IMPRESSION: 1. Complex multilocular cystic area within the left adnexa. Consider MRI follow-up. [facility], Workstation: [facility], 11/27/2023 9:12 PM
== END | disposition home or self-care (01) ==
LOC: RADUSWWP 07:22
PROVIDERS: ATTEND Family Medicine
DX: R92.8 Other abnormal and inconclusive findings on diagnostic imaging of breast (principal); N94.89 Other specified conditions associated with female genital organs and menstrual cycle; Z87.42 Personal history of other diseases of the female genital tract; Z80.3 Family history of malignant neoplasm of breast; Z90.721 Acquired absence of ovaries, unilateral
CPT/HCPCS: 76700; 76830; 76856; 77062; 77066

== ENCOUNTER → 2023-12-10 | Day surgery (SDC) | payer BC ==
[~2023-12-10] MED LIST changes: -ASPIRIN 325 MG TAB PO STA; -HEPARIN SODIUM,PORCINE (1 ML) 2,500 UNIT in SODIUM CHLORIDE 0.9% 250 ML IRRIGATION PRN; -HEPARIN SODIUM,PORCINE 10,000 UNIT in SODIUM CHLORIDE 0.9% 1,000 ML IRRIGATION PRN; -NITROGLYCERIN SL TABS 0.4 MG TAB SUBLINGUAL PRN; -SODIUM CHLORIDE 0.9% 1,000 ML in EMPTY BAG 1 BAG IV SCH
[2023-12-10 11:52] VITALS: BP 123/72; PULSE 71; RESP 14; TEMP 98
--- NOTE | 2023-12-21 11:20 | MM ---
Risk Values: Erica 5 year model risk: 0.2%. NCI Lifetime model risk: 7.5%. Prior Study Comparison: 11/27/2023 Bilateral MG 3D diag mammo w/cad [facility], [facility]. Pathology Description: Location: 3 o'clock. Marker Left Behind. Specimen Radiograph. Calcium Found: Yes Approach: Lateral to Medial Needle Type: Eviva Cores: 12 Skin Nicks: 1 Gauge: 9 The procedure of stereotactic guided core biopsy was explained to the patient. Benefits, alternatives, and risks were discussed. An informed consent was then obtained. [facility]. Shortness pathway was left lateral approach. A vacuum assisted biopsy gun was used to obtain multiple core samples. The patient tolerated the procedure well without any immediate complication. The patient was kept in the radiology department for short stay after the procedure and then discharged home in stable condition. Targeted calcifications are identified in specimen mammogram. Post biopsy mammogram performed on a separate work shows the clip to appear in satisfactory position relative to the targeted area of concern on the preprocedure images. Impression: SUCCESSFUL, UNCOMPLICATED STEREOTACTIC GUIDED CORE BIOPSY OF AREA OF CONCERN IN THE left BREAST. Pathology Results: Result: Malignant, Ductal carcinoma in situ, comedo type. Pathology and radiology were reviewed. Findings are concordant. 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 Background fibrocystic changes including fibroadenomatoid hyperplasia. Focal pseudoangiomatous stromal hyperplasia (PASH). See Surgical Pathology Cancer Case Summary and Comment. Overall Assessment: Malignant Management: Surgical Consultation of the left breast. Biopsy of 9 o'clock group of calcifications recommended. Electronically signed and approved by: Reddy Kimball DO
== END ==
LOC: RADMAMWWP 09:45
PROVIDERS: ATTEND Family Medicine
DX: D05.12 Intraductal carcinoma in situ of left breast (principal)
CPT/HCPCS: 88305; 88341; 88342

== ENCOUNTER → 2023-12-18 | Day surgery (SDC) | payer BC ==
--- NOTE | 2023-12-23 14:07 | MM ---
Reason for Exam: Post Procedure Mammogram. Last screening mammogram was performed less than 1 month ago. Patient History: Menarche at age 11. Patient has no children. Breast cancer, left, age 33. 12/10/2023, Malignant MG stereo VAD BX LT on the left side. Paternal grandmother had breast cancer. Last menstrual period: 12/08/2023 Prior Study Comparison: 11/27/2023 Bilateral MG 3D diag mammo w/cad DIOGENES, [facility]. 11/27/2023 Bilateral US breast BILAT, [facility]. Tissue Density: Left: The breasts are extremely dense, which lowers the sensitivity of mammography. Pathology Description: Location: 2 o'clock, upper outer quadrant. Needle Type: IdeaSquares Cores: 3 Gauge: 12 The procedure of ultrasound guided core biopsy was explained to the patient. Benefits, alternatives, and risks were discussed. An informed consent was then obtained. The patient was placed in supine positioning for imaging and for the procedure. The overlying skin was prepped and draped in usual sterile fashion. Lidocaine buffered with bicarbonate was used as anesthetic into the skin and subcutaneous tissue up to area of concern in the left 2:00 breast 7 cm from the nipple breast. A timmy was made with surgical scalpel. Under ultrasound guidance, a 12-gauge vacuum assisted biopsy gun device was used to obtain 3 core samples. Following this, a biopsy clip was left in lesion. The patient tolerated the procedure well without any immediate complication. The patient was kept in the radiology department for short stay after the procedure and then discharged home in stable condition. Postprocedure mammogram: The patient was transferred to mammography for physician ordered post procedure mammogram for clip placement verification. Impression: Successful, uncomplicated ultrasound guided core biopsy of area of concern in the left 2:00 breast breast, full pathology results to follow. [facility], , 12/18/2023 11:21 AM. Pathology Results: Result: Benign, Fibroadenoma. Pathology and radiology were reviewed. Findings are concordant. LEFT BREAST, 2:00, UTRASOUND GUIDED CORE BIOPSY: Sclerotic fibroadenoma with focal myxoid change and focal usual ductal hyperplasia. Overall Assessment: Benign Assessment: MG diagnostic mammo LT wo CAD. - Left: Benign, BI-RAD 2. Management: Diagnostic Mammogram of the left breast in 6 months. Diagnostic Breast Ultrasound of the left breast in 6 months. Electronically signed and approved by: Gilmar Barbosa M.D. Radiologis
== END ==
LOC: RADUSWWP 09:51
PROVIDERS: ATTEND Family Medicine
DX: D24.2 Benign neoplasm of left breast (principal); N62 Hypertrophy of breast; R92.8 Other abnormal and inconclusive findings on diagnostic imaging of breast; Z80.3 Family history of malignant neoplasm of breast
CPT/HCPCS: 88305; 77065; 19083; A4648

== ENCOUNTER → 2023-12-23 | Outpatient (CLI) | payer BC ==
[2023-12-23 08:43] VITALS: BP 119/79; PULSE 80; RESP 17; TEMP 98.6
--- NOTE | 2023-12-23 10:23 | P.GSCN ---
History of Present Illness Consult date: 12/23/23 Reason for Consult: DCIS left breast Requesting physician: Michelle Jaquez History of present illness: Lupe is a 33 year old female seen in consultation for DR. Jaquez regarding a left breast biopay on 12-10-23 which was + DCIS. She had a bilateral breast ultrasound on 11-27-23 which showed a lesion in the left breat. A biopsy was done and + for a fibroadenoma. She was recommendec to have a mammogram which showed microclacification of concern at the 3 and 9-10 oclock position. No lesions in the right breast. She had a left breast stero biopsy on 12-10-23 which showed DCIS. She is complaining of pain in both breast for several months. She has not felt any lumps masses or nodules of concern in either breast. The ultrasound led to a core biopsy on 12-17-2023 of the left breast at 2:00 which was positive for fibroadenoma. However this led to bilateral mammograms showing microcalcifications at 2 sites in the left breast resulting in a stereo biopsy of the 3 o'clock position which showed DCIS. The patient is now recommended to have a stereo biopsy of the other side at the 9 to 10 o'clock position in the left breast. ultrsound of pelvis recommended an MRI scheduled for December caffiene: pop occasional nicotine: 1 PPD for 20 years BCP: none hormones: none chocolate: occasional Family History: paternal grandmother: bilateral breast cancer, at 56 maternal grandfather: colon cancer Hormonal History: menarche: 11 periods regular, last period 1 week ago Surgical History: atrial septal defect closure Total thyroidectomy for cancer at the age of 30, no radiation no chemo takes thyroid replacement Pericardial effusion Cardiac catheterization Medical history: heart defect sees Dr. Cook thyroid disease DR. Velez uses aspirin daily Social History: nicotine: as above alcohol: several times a week liquor drugs: none Review of Systems - Constitutional Denies fever, Denies weight loss - EENT Eyes: denies blurred vision Ears: deny: decreased hearing, tinnitus Ears, nose, mouth and throat: Denies dysphagia - Breasts bilateral: as per HPI - Cardiovascular Reports as per HPI - Respiratory Reports as per HPI, Reports cough - Gastrointestinal Reports as per HPI - Genitourinary Genitourinary: Denies dysuria, Denies hematuria Menstruation: Reports as per HPI - Musculoskeletal Reports as per HPI - Integumentary Reports rash, Reports unusual bruising - Neurological Denies headaches, Denies syncope - Psychiatric Reports as per HPI - Endocrine Reports as per HPI, Reports fatigue - Hematologic/Lymphatic Reports as per HPI Past Medical History Past Medical History: Cancer, Chest Pain / Angina Additional Past Medical History / Comment(s): Amplatzer septal occluder. Hole in heart. , ovarian cyst History of Any Multi-Drug Resistant Organisms: None Reported Additional Past Surgical History / Comment(s): "heart surgery" 2014. Thyroidectomy 2021 Past Anesthesia/Blood Transfusion Reactions: No Reported Reaction Additional Past Anesthesia/Blood Transfusion Reaction / Comm: no hx blood transfusion Past Psychological History: No Psychological Hx Reported Smoking Status: Current every day smoker Past Alcohol Use History: Daily Additional Past Alcohol Use History / Comment(s): started smoking at age 11,1ppd,drinks rum or vodka-drinks more than 7 drinks per week-approx up to 10 per week. 12-10-23 pt states she drinks once a week 2-3 drinka Past Drug Use History: Marijuana - Past Family History Mother Family Medical History: No Reported History Additional Family Medical History / Comment(s): maternal grandfather colon CA Father Family Medical History: Cancer Additional Family Medical History / Comment(s): lung CA. paternal grandmother breast CA Medications and Allergies Home Medications Medication Instructions Recorded Confirmed Type Levothyroxine Sodium 137 mcg PO MOTUWETHFRSA 05/04/23 12/23/23 History Aspirin 81 mg PO DAILY 08/05/23 12/23/23 History Metoprolol Succinate [Metoprolol 25 mg PO QAM 08/05/23 12/23/23 History Succinate ER] Allergies Allergy/AdvReac Type Severity Reaction Status Date / Time sumatriptan [From Imitrex] Allergy facial and Verified 12/23/23 08:41 anshu hand swelling Surgical - Exam Vital Signs Temp Pulse Resp BP Pulse Ox 98.6 F 80 17 119/79 98 12/23/23 08:41 12/23/23 08:41 12/23/23 08:41 12/23/23 08:41 12/23/23 08:41 - General no distress - Eyes normal ocular movement - ENT no hearing loss - Neck trachea midline - Respiratory normal respiratory effort - Cardiovascular Rhythm: regular Heart Sounds: normal: S1, S2 Abnormal Heart Sounds: systolic murmur - Abdomen Abdomen: soft, non tender, no guarding, no rigid, no rebound - Rectum normal turgor - Integumentary normal turgor - Musculoskeletal normal gait - Psychiatric oriented to time, oriented to person, oriented to place, speech is normal, memory intact Breast Exam: BRA: 36C inspection: Bilateral grade 2 ptosis, ecchymosis lateral aspect of the left breast Palpation: Right breast: Multi positional exam no dominant masses or nodules of concern Right axilla: No adenopathy of concern Left breast: Multi positional exam no dominant masses or nodules of concern, ecchymosis lateral aspect of the breast, fibroadenoma is not palpable Left axilla: No adenopathy of concern Results Mammogram bilateral breast reviewed with Dr. Feliz, area of microcalcifications at the 3 o'clock position seems to span approximately 3 cm, fibroadenoma is at a remote site from that area, the second area of microcalcifications in the left breast appears to be at the 9 to 10 o'clock position however he would like repeat mag CC views of that site prior to additional stereo biopsy of the second site. The patient's ultrasound which was performed on 11-27-2023 was also personally reviewed with Dr. Feliz Assessment and Plan Assessment: Impression: 1. Prior history of thyroid cancer/status post total thyroidectomy patient did not have radiation or any chemotherapy she is on thyroid replacement 2. Atrial septal defect treated with surgical intervention, she takes aspirin daily and follows with cardiology Dr. Cook 3. New diagnosis left breast DCIS spanning approximately 3 cm with a second site of microcalcifications of concern, additional biopsy of the left breast revealed a fibroadenoma 4. Change noted on ultrasound of the pelvis resulting in recommendation for a pelvic MRI which has been scheduled for December 31 for a complex multilocular cystic area in the left adnexa this was ordered by DR. Jaquez Plan: 1. Left breast CC mag view to better identify the area of microcalcifications in the 9 to 10 o'clock position 2. Stereotactic core biopsy of the area of concern in the 9 to 10 o'clock position with further recommendation to follow 3. genetic testing stat 4. present at tumor board 5. await results of second stero biopsy to determine treatment recommendations CC: Dr. Ingrid Bueno
== END ==
LOC: WWCWWP 08:24
PROVIDERS: ATTEND Surgery
DX: R92.0 Mammographic microcalcification found on diagnostic imaging of breast (principal); D05.12 Intraductal carcinoma in situ of left breast; Q21.10 Atrial septal defect, unspecified; D24.2 Benign neoplasm of left breast; F17.210 Nicotine dependence, cigarettes, uncomplicated; Z80.3 Family history of malignant neoplasm of breast; Z85.850 Personal history of malignant neoplasm of thyroid; Z88.8 Allergy status to other drugs, medicaments and biological substances

== ENCOUNTER → 2023-12-23 | Outpatient (CLI) | payer BC ==
--- NOTE | 2023-12-23 11:48 | MM ---
Reason for Exam: Additional evaluation requested from abnormal screening. Last screening mammogram was performed less than 1 month ago. Patient History: Menarche at age 11. Patient has no children. Breast cancer, left, age 33. 12/10/2023, Malignant MG stereo VAD BX LT on the left side. Paternal grandmother had breast cancer. Last menstrual period: 12/16/2023 Prior Study Comparison: 11/27/2023 Bilateral MG 3D diag mammo w/cad DIOGENES, [facility]. Tissue Density: Left: The breasts are heterogeneously dense, which may obscure small masses. Findings: Analyzed By CAD. 2 microclips along the lateral aspect of the left breast are redemonstrated. The top hat clip is at the site of right CT proven DCIS. The coil clip is at the site of biopsy-proven fibroadenoma. We note that calcifications at the site of our extremely faint but span nearly 3 cm. Very faint additional calcifications are noted centrally left CC view middle depth. We are unable to clearly identify these calcifications on the lateral view. A CC from above approach can be attempted for biopsy. Overall Assessment: Known biopsy proven malignancy, BI-RAD 6 Management: Stereotactic Core Biopsy of the left breast. Utilizing CC from above approach. Results were given to the patient verbally at the time of exam. In addition, MRI may be considered given the very faint appearance of the calcifications. [facility], , 12/23/2023 11:46 AM. Electronically signed and approved by: Love Feliz M.D. Radiologist
== END | disposition home or self-care (01) ==
LOC: RADMAMWWP 10:45
PROVIDERS: ATTEND Surgery

== ENCOUNTER → 2023-12-24 | Day surgery (SDC) | payer BC ==
[2023-12-24 07:42] VITALS: RESP 16
--- NOTE | 2023-12-24 08:40 | P.PCN ---
Date of Procedure: 12/24/23 Preoperative Diagnosis: Left breast microcalcifications of concern Postoperative Diagnosis: Same Procedure(s) Performed: Left breast stereotactic core biopsy Anesthesia: local Surgeon: Eneida Hernandez Pathology: other (Tissue with microcalcifications of concern noted in specimen) Condition: stable Disposition: same day Indications for Procedure: Microcalcifications of concern left breast Operative Findings: Microcalcifications noted in specimen Description of Procedure: The patient is a 33-year-old white female seen secondary to microcalcifications of concern in the left breast. She underwent an ultrasound core biopsy of a solid lesion in the left breast which was consistent with a fibroadenoma. A second site in the left breast was biopsied via stereo biopsy and revealed ductal carcinoma in situ. This area spanned approximately 3 cm. A third area of concern was noted in the left breast seen in the cc view. This was felt to be suspicious and a stereotactic core biopsy was recommended. The risk and benefits of the procedure were discussed with the patient. On physical examination the patient was noted to have some ecchymosis from her right previous 2 biopsies but no hematoma or other lesions of concern. The patient agreed to a stereotactic core biopsy of the additional areas of microcalcification in the left breast. Following informed consent the patient was brought to the stereotactic core biopsy room. She was positioned in the upright chair. A radio mechanic helper film the CC from above was performed. The area of concern was identified. The area was targeted. The breast was prepped using chlorhexidine. A 9 gauge vacuum-ass isted core rotating biopsy needle was driven to the correct coordinates. The area was anesthetized prior to this using 20 cc of 1% lidocaine. A prefire film was obtained. The needle was noted to be in the correct location. The needle was fired. A post fire film was obtained. The needle was noted to be in the correct location. 15 core biopsy specimens were obtained. Radiograph of the specimen did not reveal the microcalcifications to be in the specimen. A repeat radiograph was obtained and the calcifications appear to be slightly deeper in the breast. The needle was advanced to the correct coordinates and 7 additional core specimens were obtained. Radiograph of the specimen did reveal the microcalcifications of concern. A secure juventino Top-Hat clip was deployed. The clip appeared to be in the correct location. The specimen is sent to pathology. The patient will follow-up with Dr. Cadet in 1 week. Patient tolerated the procedure in stable condition.
[2023-12-24 09:04] VITALS: BP 131/77; PULSE 73; TEMP 98.1
--- NOTE | 2023-12-25 10:37 | MM ---
Date of Procedure: 12/24/23 Preoperative Diagnosis: Left breast microcalcifications of concern Postoperative Diagnosis: Same Procedure(s) Performed: Left breast stereotactic core biopsy Anesthesia: local Surgeon: Eneida Hernandez Pathology: other (Tissue with microcalcifications of concern noted in specimen) Condition: stable Disposition: same day Indications for Procedure: Microcalcifications of concern left breast Operative Findings: Microcalcifications noted in specimen Description of Procedure: The patient is a 33-year-old white female seen secondary to microcalcifications of concern in the left breast. She underwent an ultrasound core biopsy of a solid lesion in the left breast which was consistent with a fibroadenoma. A second site in the left breast was biopsied via stereo biopsy and revealed ductal carcinoma in situ. This area spanned approximately 3 cm. A third area of concern was noted in the left breast seen in the cc view. This was felt to be suspicious and a stereotactic core biopsy was recommended. The risk and benefits of the procedure were discussed with the patient. On physical examination the patient was noted to have some ecchymosis from her right previous 2 biopsies but no hematoma or other lesions of concern. The patient agreed to a stereotactic core biopsy of the additional areas of microcalcification in the left breast. Following informed consent the patient was brought to the stereotactic core biopsy room. She was positioned in the upright chair. A edge burnisher film the CC from above was performed. The area of concern was identified. The area was targeted. The breast was prepped using chlorhexidine. A 9 gauge vacuum- assisted core rotating biopsy needle was driven to the correct coordinates. The area was anesthetized prior to this using 20 cc of 1% lidocaine. A prefire film was obtained. The needle was noted to be in the correct location. The needle was fired. A post fire film was obtained. The needle was noted to be in the correct location. 15 core biopsy specimens were obtained. Radiograph of the specimen did not reveal the microcalcifications to be in the specimen. A repeat radiograph was obtained and the calcifications appear to be slightly deeper in the breast. The needle was advanced to the correct coordinates and 7 additional core specimens were obtained. Radiograph of the specimen did reveal the microcalcifications of concern. A secure juventino Top-Hat clip was deployed. The clip appeared to be in the correct location. The specimen is sent to pathology. The patient will follow-up with Dr. Cadet in 1 week. Patient tolerated the procedure in stable condition. [facility] MED[facility] CENTERTruman
--- NOTE | 2023-12-29 09:49 | MM ---
Prior Study Comparison: 11/27/2023 Bilateral MG 3D diag mammo w/cad DIOGENES, [facility]. 12/18/2023 Left MG diagnostic mammo LT wo CAD., [facility]. 12/23/2023 Left MG 3D follow up no charge , [facility]. Pathology Description: Marker Left Behind. Specimen Radiograph. Calcium Found: Yes Approach: CC FA Needle Type: Eviva Cores: 22 Skin Nicks: 1 Gauge: 9 Posterior securemark Date of Procedure: 12/24/23 Preoperative Diagnosis: Left breast microcalcifications of concern Postoperative Diagnosis: Same Procedure(s) Performed: Left breast stereotactic core biopsy Anesthesia: local Surgeon: Eneida Hernandez Pathology: other (Tissue with microcalcifications of concern noted in specimen) Condition: stable Disposition: same day Indications for Procedure: Microcalcifications of concern left breast Operative Findings: Microcalcifications noted in specimen Description of Procedure: The patient is a 33-year-old white female seen secondary to microcalcifications of concern in the left breast. She underwent an ultrasound core biopsy of a solid lesion in the left breast which was consistent with a fibroadenoma. A second site in the left breast was biopsied via stereo biopsy and revealed ductal carcinoma in situ. This area spanned approximately 3 cm. A third area of concern was noted in the left breast seen in the cc view. This was felt to be suspicious and a stereotactic core biopsy was recommended. The risk and benefits of the procedure were discussed with the patient. On physical examination the patient was noted to have some ecchymosis from her right previous 2 biopsies but no hematoma or other lesions of concern. The patient agreed to a stereotactic core biopsy of the additional areas of microcalcification in the left breast. Following informed consent the patient was brought to the stereotactic core biopsy room. She was positioned in the upright chair. A turnaround planner film the CC from above was performed. The area of concern was identified. The area was targeted. The breast was prepped using chlorhexidine. A 9 gauge vacuum-assisted core rotating biopsy needle was driven to the correct coordinates. The area was anesthetized prior to this using 20 cc of 1% lidocaine. A prefire film was obtained. The needle was noted to be in the correct location. The needle was fired. A post fire film was obtained. The needle was noted to be in the correct location. 15 core biopsy specimens were obtained. Radiograph of the specimen did not reveal the microcalcifications to be in the specimen. A repeat radiograph was obtained and the calcifications appear to be slightly deeper in the breast. The needle was advanced to the correct coordinates and 7 additional core specimens were obtained. Radiograph of the specimen did reveal the microcalcifications of concern. A secure juventino Top-Hat clip was deployed. The clip appeared to be in the correct location. The specimen is sent to pathology. The patient will follow-up with Dr. Cadet in 1 week. Patient tolerated the procedure in stable condition. Pathology Results: Result: High risk, Flat epithelial atypia. Pathology and radiology were reviewed. Findings are concordant. LEFT BREAST, STEREOTACTIC NEEDLE CORE BIOPSY: Focal flat epithelial atypia (FEA) with microcalcification (see note). Fibrocystic change with columnar cell change, apocrine metaplasia and stromal fibrosis. Notes Intradepartmental consultation with Dr. Liban Santa is in agreement with the assessment of flat epithelial atypia. The patient's prior diagnosis of a left breast stereotactic biopsy showing DCIS is noted (see case [id number] for full prior case details). 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 Overall Assessment: High risk Management: Open Biopsy of the left breast. Electronically signed and approved by: Katie Hernandez M.D.
== END ==
LOC: RADMAMWWP 06:51
PROVIDERS: ATTEND Surgery
DX: N60.82 Other benign mammary dysplasias of left breast (principal)
CPT/HCPCS: 88305; 19081; A4648; J2003

== ENCOUNTER → 2024-01-01 | Outpatient (CLI) | payer BC ==
[2024-01-01 15:31] VITALS: BP 131/74; PULSE 76; RESP 18; TEMP 98.2
== END ==
LOC: WWCWWP 15:18
PROVIDERS: ATTEND Surgery
DX: Z53.9 Procedure and treatment not carried out, unspecified reason (principal); Z88.8 Allergy status to other drugs, medicaments and biological substances

== ENCOUNTER → 2024-01-01 | Outpatient (CLI) | payer BC ==
--- NOTE | 2024-01-01 16:17 | P.PN ---
Subjective Progress Note Date: 01/01/24 Principal diagnosis: DCIS left breast 12/23/23 Reason for Consult: DCIS left breast Requesting physician: Michelle Jaquez History of present illness: Lupe is a 33 year old female seen in consultation for DR. Jaquez regarding a left breast biopay on 12-10-23 which was + DCIS. She had a bilateral breast ultrasound on 11-27-23 which showed a lesion in the left breat. A biopsy was done and + for a fibroadenoma. She was recommendec to have a mammogram which showed microclacification of concern at the 3 and 9-10 oclock position. No lesions in the right breast. She had a left breast stero biopsy on 12-10-23 which showed DCIS. She is complaining of pain in both breast for several months. She has not felt any lumps masses or nodules of concern in either breast. The ultrasound led to a core biopsy on 12-17-2023 of the left breast at 2:00 which was positive for fibroadenoma. However this led to bilateral mammograms showing microcalcifications at 2 sites in the left breast resulting in a stereo biopsy of the 3 o'clock position which showed DCIS. The patient is now recommended to have a stereo biopsy of the other side at the 9 to 10 o'clock position in the left breast. ultrsound of pelvis recommended an MRI scheduled for December The patient on 12-24-2023 underwent a stereotactic core biopsy of a second site of microcalcifications in the left breast. This revealed flat epithelial atypia. The patient tolerated this in stable condition. A Top-Hat clip was placed here this is a posterior Top-Hat clip. The anterior Top-Hat clip DIS. caffiene: pop occasional nicotine: 1 PPD for 20 years BCP: none hormones: none chocolate: occasional Family History: paternal grandmother: bilateral breast cancer, at 56 maternal grandfather: colon cancer Hormonal History: menarche: 11 periods regular, last period 1 week ago Surgical History: atrial septal defect closure Total thyroidectomy for cancer at the age of 30, no radiation no chemo takes thyroid replacement Pericardial effusion Cardiac catheterization Medical history: heart defect sees Dr. Cook thyroid disease DR. Velez uses aspirin daily Social History: nicotine: as above alcohol: several times a week liquor drugs: none Review of Systems - Constitutional Denies fever, Denies weight loss - EENT Eyes: denies blurred vision Ears: deny: decreased hearing, tinnitus Ears, nose, mouth and throat: Denies dysphagia - Breasts bilateral: as per HPI - Cardiovascular Reports as per HPI - Respiratory Reports as per HPI, Reports cough - Gastrointestinal Reports as per HPI - Genitourinary Genitourinary: Denies dysuria, Denies hematuria Menstruation: Reports as per HPI - Musculoskeletal Reports as per HPI - Integumentary Reports rash, Reports unusual bruising - Neurological Denies headaches, Denies syncope - Psychiatric Reports as per HPI - Endocrine Reports as per HPI, Reports fatigue - Hematologic/Lymphatic Reports as per HPI Past Medical History Past Medical History: Cancer, Chest Pain / Angina Additional Past Medical History / Comment(s): Amplatzer septal occluder. Hole in heart. , ovarian cyst History of Any Multi-Drug Resistant Organisms: None Reported Additional Past Surgical History / Comment(s): "heart surgery" 2014. Thyroidectomy 2021 Past Anesthesia/Blood Transfusion Reactions: No Reported Reaction Additional Past Anesthesia/Blood Transfusion Reaction / Comm: no hx blood transfusion Past Psychological History: No Psychological Hx Reported Smoking Status: Current every day smoker Past Alcohol Use History: Daily Additional Past Alcohol Use History / Comment(s): started smoking at age 11,1ppd,drinks rum or vodka-drinks more than 7 drinks per week-approx up to 10 per week. 12-10-23 pt states she drinks once a week 2-3 drinka Past Drug Use History: Marijuana - Past Family History Mother Family Medical History: No Reported History Additional Family Medical History / Comment(s): maternal grandfather colon CA Father Family Medical History: Cancer Additional Family Medical History / Comment(s): lung CA. paternal grandmother breast CA Medications and Allergies Home Medications Medication Instructions Recorded Confirmed Type Levothyroxine Sodium 137 mcg PO MOTUWETHFRSA 05/04/23 12/23/23 History Aspirin 81 mg PO DAILY 08/05/23 12/23/23 History Metoprolol Succinate [Metoprolol 25 mg PO QAM 08/05/23 12/23/23 History Succinate ER] Allergies Allergy/AdvReac Type Severity Reaction Status Date / Time sumatriptan [From Imitrex] Allergy facial and Verified 12/23/23 08:41 anshu hand swelling Surgical - Exam Vital Signs Temp Pulse Resp BP Pulse Ox 98.6 F 80 17 119/79 98 12/23/23 08:41 12/23/23 08:41 12/23/23 08:41 12/23/23 08:41 12/23/23 08:41 - General no distress - Eyes normal ocular movement - ENT no hearing loss - Neck trachea midline - Respiratory normal respiratory effort - Cardiovascular Rhythm: regular Heart Sounds: normal: S1, S2 Abnormal Heart Sounds: systolic murmur - Abdomen Abdomen: soft, non tender, no guarding, no rigid, no rebound - Rectum normal turgor - Integumentary normal turgor - Musculoskeletal normal gait - Psychiatric oriented to time, oriented to person, oriented to place, speech is normal, memory intact Breast Exam: BRA: 36C inspection: Bilateral grade 2 ptosis, ecchymosis lateral aspect of the left breast Palpation: Right breast: Multi positional exam no dominant masses or nodules of concern Right axilla: No adenopathy of concern Left breast: Multi positional exam no dominant masses or nodules of concern, ecchymosis lateral aspect of the breast, fibroadenoma is not palpable Left axilla: No adenopathy of concern Results Mammogram bilateral breast reviewed with Dr. Feliz, area of microcalcifications at the 3 o'clock position seems to span approximately 3 cm, fibroadenoma is at a remote site from that area, the second area of microcalcifications in the left breast appears to be at the 9 to 10 o'clock position however he would like repeat mag CC views of that site prior to additional stereo biopsy of the second site. The patient's ultrasound which was performed on 11-27-2023 was also personally reviewed with Dr. Feliz Assessment and Plan Assessment: Impression: 1. Prior history of thyroid cancer/status post total thyroidectomy patient did not have radiation or any chemotherapy she is on thyroid replacement 2. Atrial septal defect treated with surgical intervention, she takes aspirin daily and follows with cardiology Dr. Cook 3. New diagnosis left breast DCIS spanning approximately 3 cm with a second site of microcalcifications of concern, additional biopsy of the left breast revealed a fibroadenoma 4. Change noted on ultrasound of the pelvis resulting in recommendation for a pelvic MRI which has been scheduled for December 31 for a complex multilocular cystic area in the left adnexa this was ordered by DR. Jaquez Plan: 1. Left breast CC mag view to better identify the area of microcalcifications in the 9 to 10 o'clock position 2. Stereotactic core biopsy of the area of concern in the 9 to 10 o'clock position with further recommendation to follow 3. genetic testing stat 4. present at tumor board 5. await results of second stero biopsy to determine treatment recommendations CC: Dr. Ingrid Bueno Additional CC's: Michelle Jaquez Objective - Constitutional General appearance: Present: cooperative - EENT Eyes: Present: EOMI ENT: Present: hearing grossly normal - Neck Neck: Present: normal ROM - Respiratory Respiratory: bilateral: CTA - Cardiovascular Heart sounds: normal: S1, S2 - Integumentary Integumentary: Present: normal turgor - Musculoskeletal Musculoskeletal: Present: gait normal - Psychiatric Psychiatric: Present: A&O x's 3, appropriate affect, intact judgment & insight - Additional findings Additional findings: Breast Exam: BRA: 36C inspection: Bilateral grade 2 ptosis, ecchymosis lateral aspect of the left breast improving Palpation: Right breast: Multi positional exam no dominant masses or nodules of concern Right axilla: No adenopathy of concern Left breast: Multi positional exam no dominant masses or nodules of concern, ecchymosis lateral aspect of the breast improving new biopsy site clean and dry, fibroadenoma is not palpable Left axilla: No adenopathy of concern Assessment and Plan Assessment: Impression: 1. Prior history of thyroid cancer/status post total thyroidectomy patient did not have radiation or any chemotherapy she is on thyroid replacement 2. Atrial septal defect treated with surgical intervention, she takes aspirin daily and follows with cardiology Dr. Cook 3. New diagnosis left breast DCIS spanning approximately 3 cm with a second site of microcalcifications of concern, additional biopsy of the left breast revealed a fibroadenoma 4. Change noted on ultrasound of the pelvis resulting in recommendation for a pelvic MRI which has been scheduled for December 31 for a complex multilocular cystic area in the left adnexa this was ordered by DR. Jaquez 5. Flat epitheleal atypia on the posterior microcalcifications in the left breast Awaiting genetic testing Plan: 1. DCIS with comedonecrosis anterior Top-Hat clip left breast, spanning 3 cm 2. Fibroadenoma left breast 3. Flat epithelial atypia posterior Top-Hat clip left breast 4. Patient would like to have a lumpectomy if possible 5. Awaiting genetic testing 6. Presentation of case at tumor board 7. Probable left breast needle localization lumpectomy of anterior Top-Hat clip, left sentinel node injection, left sentinel node biopsy Risk and benefits of procedure discussed with the patient. Risk include but are not limited to bleeding, infection, reaction to the anesthetic. If margins were to be positive then further tissue acquisition would be necessary. Additionally the sentinel node biopsy is secondary to the fact that this is comedonecrosis spanning 3 cm, she understands that if there is no invasion then the sentinel node biopsy would be unnecessary. Risk of this include but are not limited to bleeding, infection, reaction to the anesthetic. She could have some decrease sensation to the inner arm or lymphedema. Additionally there is a risk of injury to the thoracodorsal or long thoracic nerves. She understands and wishes to proceed. CC: Dr. Ingrid Bueno
--- NOTE | 2024-01-03 12:36 | MR ---
EXAMINATION TYPE: MR pelvis wo/w con DATE OF EXAM: 01/01/2024 9:26 AM COMPARISON: 11/27/2023. CLINICAL INDICATION: Female, 33 years old with history of N83.8 CYST OF UTERINE ADNEXA; PHH, Ovarian cysts. TECHNIQUE: Triplane multisequence imaging was performed of the pelvis. IV Contrast: 6 mL Gadobutrol FINDINGS: Reproductive: Vagina: Unremarkable. Uterus: The uterus is anteverted in position. Uterus measures 8.5 x 4.2 x 5.5 cm. The endometrium an d junctional zone are within normal limits. Arcuate morphology to the uterine fundus. The left ovary measures 33 x 20 x 22 mm. Multiple high T2 low T1 signal follicles are present.. The right ovary roberta ures 35 x 34 x 47 mm multiple high T2 low T1 signal cysts. Additionally there is a high T1 low T2 sig nal hemorrhagic/proteinaceous cyst measuring 6 mm. Suspected right corpus luteum/involuting follicle measuring 15 x 11 mm. Bladder: Unremarkable. Bowel: Unremarkable as visualized. Peritoneum: No free fluid or adenopathy. Lymph nodes: No evidence of adenopathy. Vasculature: Unremarkable. Musculoskeletal: Bone marrow signal is within normal signal intensity. Abdominal wall/soft tissues: Unremarkable. IMPRESSION: 1. No evidence of suspicious pelvic mass. 2. Bilateral ovarian follicles 1 hemorrhagic/proteinaceous follicle on the right. No suspicious eva s identified. 3. Arcuate uterine fundus morphology. [facility], , 01/03/2024 12:33 PM
== END | disposition home or self-care (01) ==
LOC: RADMRIMAIN 08:28
PROVIDERS: ATTEND Family Medicine
DX: N83.8 Other noninflammatory disorders of ovary, fallopian tube and broad ligament (principal); N83.209 Unspecified ovarian cyst, unspecified side; Z85.850 Personal history of malignant neoplasm of thyroid; Q21.10 Atrial septal defect, unspecified; F17.210 Nicotine dependence, cigarettes, uncomplicated; Z79.82 Long term (current) use of aspirin; D05.12 Intraductal carcinoma in situ of left breast; Z80.3 Family history of malignant neoplasm of breast; Z80.1 Family history of malignant neoplasm of trachea, bronchus and lung
CPT/HCPCS: 72197; A9585

== ENCOUNTER → 2024-01-28 | Outpatient (CLI) | payer BC ==
[2024-01-28 16:01] VITALS: BP 121/67; PULSE 62; RESP 16; TEMP 98.4
--- NOTE | 2024-01-28 16:19 | P.PN ---
Subjective Progress Note Date: 01/28/24 Principal diagnosis: DCIS left breast Subjective Progress Note Date: 01-28-24 Principal diagnosis: DCIS left breast 12/23/23 Reason for Consult: DCIS left breast Requesting physician: Michelle Jaquez History of present illness: Lupe is a 33 year old female seen in consultation for DR. Jaquez regarding a left breast biopsy on 12-10-23 which was + DCIS. She had a bilateral breast ultrasound on 11-27-23 which showed a lesion in the left breast. A biopsy was done and + for a fibroadenoma. She was recommended to have a ma mmogram which showed microclacification of concern at the 3 and 9-10 oclock position. No lesions in the right breast. She had a left breast stero biopsy on 12-10-23 which showed DCIS. She is complaining of pain in both breast for several months. She has not felt any lumps masses or nodules of concern in either breast. The ultrasound led to a core biopsy on 12-17-2023 of the left breast at 2:00 which was positive for fibroadenoma. However this led to bilateral mammograms showing microcalcifications at 2 sites in the left breast resulting in a stereo biopsy of the 3 o'clock position which showed DCIS. The patient is now recommended to have a stereo biopsy of the other side at the 9 to 10 o'clock position in the left breast. ultrasound of pelvis recommended an MRI scheduled for December; MRI of pelvis no spspecious pelvic mass The patient on 12-24-2023 underwent a stereotactic core biopsy of a second site of microcalcifications in the left breast. This revealed flat epithelial atypia. The patient tolerated this in stable condition. A Top-Hat clip was placed here this is a posterior Top-Hat clip. The anterior Top-Hat clip DCIS. Case presented at tumor board on 01-05-2024. Recommendation to await genetic testing if this is positive consider bilateral mastectomy if genetic testing is negative bracket left breast lumpectomy with sentinel node biopsy. Genetic testing (-) note radiation oncology reviewed: 01-15-24 plan on radiation after surgery caffiene: pop occasional nicotine: 1 PPD for 20 years BCP: none hormones: none chocolate: occasional Family History: paternal grandmother: bilateral breast cancer, at 56 maternal grandfather: colon cancer Hormonal History: menarche: 11 periods regular, last period 1 week ago Surgical History: atrial septal defect closure Total thyroidectomy for cancer at the age of 30, no radiation no chemo takes thyroid replacement Pericardial effusion Cardiac catheterization Medical history: heart defect sees Dr. Cook thyroid disease DR. Velez uses aspirin daily Social History: nicotine: as above alcohol: several times a week liquor drugs: none Review of Systems - Constitutional Denies fever, Denies weight loss - EENT Eyes: denies blurred vision Ears: deny: decreased hearing, tinnitus Ears, nose, mouth and throat: Denies dysphagia - Breasts bilateral: as per HPI - Cardiovascular Reports as per HPI - Respiratory Reports as per HPI, Reports cough - Gastrointestinal Reports as per HPI - Genitourinary Genitourinary: Denies dysuria, Denies hematuria Menstruation: Reports as per HPI - Musculoskeletal Reports as per HPI - Integumentary Reports rash, Reports unusual bruising - Neurological Denies headaches, Denies syncope - Psychiatric Reports as per HPI - Endocrine Reports as per HPI, Reports fatigue - Hematologic/Lymphatic Reports as per HPI Past Medical History Past Medical History: Cancer, Chest Pain / Angina Additional Past Medical History / Comment(s): Amplatzer septal occluder. Hole in heart. , ovarian cyst History of Any Multi-Drug Resistant Organisms: None Reported Additional Past Surgical History / Comment(s): "heart surgery" 2014. Thyroidectomy 2021 Past Anesthesia/Blood Transfusion Reactions: No Reported Reaction Additional Past Anesthesia/Blood Transfusion Reaction / Comm: no hx blood transfusion Past Psychological History: No Psychological Hx Reported Smoking Status: Current every day smoker Past Alcohol Use History: Daily Additional Past Alcohol Use History / Comment(s): started smoking at age 11,1ppd,drinks rum or vodka-drinks more than 7 drinks per week-approx up to 10 per week. 12-10-23 pt states she drinks once a week 2-3 drinka Past Drug Use History: Marijuana - Past Family History Mother Family Medical History: No Reported History Additional Family Medical History / Comment(s): maternal grandfather colon CA Father Family Medical History: Cancer Additional Family Medical History / Comment(s): lung CA. paternal grandmother breast CA Medications and Allergies Home Medications Medication Instructions Recorded Confirmed Type Levothyroxine Sodium 137 mcg PO MOTUWETHFRSA 05/04/23 12/23/23 History Aspirin 81 mg PO DAILY 08/05/23 12/23/23 History Metoprolol Succinate [Metoprolol 25 mg PO QAM 08/05/23 12/23/23 History Succinate ER] Allergies Allergy/AdvReac Type Severity Reaction Status Date / Time sumatriptan [From Imitrex] Allergy facial and Verified 12/23/23 08:41 anshu hand swelling Objective - Vital Signs Vital signs: Vital Signs Temp 98.4 F 01/28/24 15:58 Pulse 62 01/28/24 15:58 Resp 16 01/28/24 15:58 BP 121/67 01/28/24 15:58 Pulse Ox 97 01/28/24 15:58 FiO2 Intake & Output 01/27/24 01/28/24 01/28/24 18:59 06:59 18:59 Weight 59.874 kg - Constitutional General appearance: Present: cooperative - EENT Eyes: Present: EOMI ENT: Present: hearing grossly normal - Neck Neck: Present: normal ROM - Respiratory Respiratory: bilateral: CTA - Cardiovascular Rhythm: regular Heart sounds: normal: S1, S2 - Integumentary Integumentary: Present: normal turgor - Musculoskeletal Musculoskeletal: Present: gait normal - Psychiatric Psychiatric: Present: A&O x's 3, appropriate affect, intact judgment & insight - Additional findings Additional findings: Breast Exam: BRA: 36C inspection: Bilateral grade 2 ptosis, ecchymosis lateral aspect of the left breast improving Palpation: Right breast: Multi positional exam no dominant masses or nodules of concern Right axilla: No adenopathy of concern Left breast: Multi positional exam no dominant masses or nodules of concern, ecchymosis lateral aspect of the breast improving new biopsy site clean and dry, fibroadenoma is not palpable Left axilla: No adenopathy of concern Assessment and Plan Assessment: Impression: 1. Prior history of thyroid cancer/status post total thyroidectomy patient did not have radiation or any chemotherapy she is on thyroid replacement 2. Atrial septal defect treated with surgical intervention, she takes aspirin daily and follows with cardiology Dr. Cook 3. New diagnosis left breast DCIS spanning approximately 3 cm with a second site of microcalcifications of concern, additional biopsy of the left breast revealed a fibroadenoma 4. Change noted on ultrasound of the pelvis resulting in recommendation for a pelvic MRI which has been scheduled for December 31 for a complex multilocular cystic area in the left adnexa this was benign this was ordered by DR. Jaquez Plan: left breast bracketed area of DCIs, and lumpectomy, possible oncoplastic tissue transfer, left sentinal node injection, left sentinel node biopsy possible left axillary node resection cardiac clearance clearance Dr. Tijerina Additional CC's: Michelle Jaquez
== END ==
LOC: WWCWWP 15:22
PROVIDERS: ATTEND Surgery
DX: D05.12 Intraductal carcinoma in situ of left breast (principal); Q21.10 Atrial septal defect, unspecified; F17.210 Nicotine dependence, cigarettes, uncomplicated; Z80.3 Family history of malignant neoplasm of breast; Z85.850 Personal history of malignant neoplasm of thyroid; Z88.8 Allergy status to other drugs, medicaments and biological substances

== ENCOUNTER 2024-02-02 09:25 | Day surgery (SDC) | payer BC ==
[~2024-02-02 09:25] MED LIST changes: -ALPRAZolam 0.25 MG TAB PO PRN; -ALPRAZolam 0.5 MG TAB PO PRN; +HYDROmorphone 0.5 MG/0.5 ML SYRINGE IVP PRN; +MIDAZOLAM 2 MG/2 ML VIAL IV PRN; +SCOPOLAMINE 1 MG/72 HR PATCH TRANSDERM ONE
[2024-02-02] MEDS: IV FLUID CONTINUATION 1,000 ML IV ONE (10:19)
[2024-02-02] MEDS: LACTATED RINGERS 1,000 ML IV SCH (10:19)
[2024-02-02] MEDS: LIDOCAINE 1% (10MG/ML) FOR IV START INTRADERMA PRN (10:19)
[2024-02-02] MEDS: ALPRAZolam 0.5 MG TAB PO STA (10:27)
[2024-02-02] MEDS: ACETAMINOPHEN TAB 500 MG TAB PO PRN (10:27)
[2024-02-02] MEDS: LIDOCAINE 1% INJ 10MG/ML (20 ML MDV) SQ ONE ×3 (11:01→14:10)
[2024-02-02] MEDS: SODIUM BICARB 8.4% 50 ML VIAL (1 MEQ/ML) MISCELLANE ONE (11:01)
[2024-02-02] MEDS: ONDANSETRON 4 MG/2 ML VIAL IVP ONE (12:31)
--- NOTE | 2024-02-02 12:31 | P.NAPBC ---
NAPBC Queries - NAPBC Queries Was patient's case review presented at [facility] tumor board? If no, comment.: Yes Was patient's pathology reviewed at [facility]? If no, comment.: Yes Was breast conservation surgery offered? If no, comment.: Yes Was sentinel node biopsy offered? If no, comment.: Yes Was diagnosis confirmed by percutaneous core biopsy? If no, comment.: Yes Is patient mastectomy patient?: No Was a preop referral to reconstructive surgeon offered?: No Clinical Stage: stage 0 DCIS
[2024-02-02] MEDS: HEPARIN SODIUM,PORCINE 5,000 UNIT/ML 1 ML VIAL SQ PRN (12:32)
[2024-02-02] MEDS: DEXAMETHASONE SOD PHOSPHATE 4 MG/ML 1 ML VIAL IV ONE (12:32)
--- NOTE | 2024-02-02 12:36 | NM ---
EXAMINATION TYPE: NM sentinel node injection DATE OF EXAM: 02/02/2024 COMPARISON: NONE INDICATION: Abnormal mammogram. Informed consent was obtained. A timeout was performed. The area around the left nipple was cleansed with alcohol. In a single dose, a total of 536 uCi Margaret hnetium 99m Tilmanocept was injected. The patient tolerated the procedure very well. IMPRESSION: 1. Successful injection for sentinel node evaluation. [facility], , 02/02/2024 12:33 PM
[2024-02-02] MEDS ORDERED: GLYCOPYRROLATE 0.2 MG/ML 2 ML VIAL ONE (12:38)
[2024-02-02] MEDS ORDERED: fentaNYL (PF) 50 MCG/ML 2 ML AMP ONE (12:38)
[2024-02-02] MEDS ORDERED: MIDAZOLAM 2 MG/2 ML VIAL ONE (12:38)
[2024-02-02] MEDS ORDERED: HYDROmorphone (PF) 1 MG/ML ONE (12:38)
[2024-02-02] MEDS ORDERED: ePHEDrine 50 MG/ML 1 ML VIAL ONE (12:38)
[2024-02-02] MEDS ORDERED: LIDOCAINE 1% INJ 10MG/ML (20 ML MDV) ONE (12:38)
[2024-02-02] MEDS ORDERED: SUCCINYLCHOLINE CHLORIDE 200 MG/10 ML VIAL IV ONE (12:38)
[2024-02-02] MEDS ORDERED: PROPOFOL 10 MG/ML 20 ML VIAL IV ONE (12:38)
--- NOTE | 2024-02-02 14:14 | P.BCAON ---
Date of Procedure: 02/02/24 Preoperative Diagnosis: DCIS/flat epithelial atypia left breast Postoperative Diagnosis: Same Procedure(s) Performed: Needle localization lumpectomy 2 sites left breast, sentinel node biopsy Anesthesia: OSWALDOA Surgeon: Eneida Hernandez Estimated Blood Loss (ml): 5 IV fluids (ml): 700 Pathology: other (Breast tissue/axillary contents) Condition: stable Disposition: same day Indications for Procedure: Biopsy-proven left breast DCIS Operative Findings: Dense breast tissue/soft lymph nodes Description of Procedure: The patient was seen first in the radiology department where radiotracer was injected in the periareolar region. 2 areas of concern were localized using needle wire localization. Anterior was the area of DCIS and posterior was the area of flat epithelial atypia. The patient was brought to the operative suite. Following induction of anesthesia the neoprobe was used to interrogate the axilla. The radioactivity had traveled to the axilla. Following this the left breast and axilla were prepped and draped in a sterile fashion. An incision was made in the axilla and carried down to the area of highest radioactivity. There appeared to be a conglomeration of nodes which were excised. The 10-second count on the lymph nodes was 13,169. The 10-second count in the axilla residual was 62. No additional lymph nodes of concern were palpable. The patient did have some very high axillary nodes which were radioactive however these did not appear to be worrisome and they were out of the field of our dissection. The maxilla was well irrigated. The deep tissues were closed using 3-0 Vicryl suture. The skin was closed using 4-0 Monocryl. Following this the area of the breast was approached. An incision was made between the 2 localizing wires. The more anterior wire was dissected around initially. Wide dissection was performed. Following this in continuity the area on the more posterior needle was approached and this was dissected widely around. The specimen was removed and painted for orientation. Radiograph of the specimen revealed that the wires and clips of concern were excised. The wound was evaluated for hemostasis. It was irrigated. Titanium clips were placed. Posteriorly dissection was onto the muscle. The deep tissues were brought together using 3-0 Vicryl suture. The skin was closed using 3-0 Vicryl subcutaneous suture with a 4-0 Monocryl. The patient tolerated the procedure in stable condition. All instrument and sponge counts were correct at the end of the case. - Sentinal Node Biopsy Operation performed with curative intent: Yes Tracer(s) used in upfront surgery (non-neoadjuvant): radioactive tracer Tracer(s) used in the neoadjuvant setting: N/A All nodes present at end of dye-filled channel removed: N/A All significantly radioactive nodes were removed: Yes All palpably suspicious nodes were removed: Yes
--- NOTE | 2024-02-02 14:16 | P.DS ---
Providers Attending physician: Eneida Hernandez Primary care physician: Michelle Jaquez Plan - Discharge Summary Discharge Rx Participant: Yes New Discharge Prescriptions: New oxyCODONE HCL [OxyIR] 5 mg PO Q6H PRN #5 tab PRN Reason: Breakthrough Pain No Action Levothyroxine Sodium 137 mcg PO MOTUWETHFRSA Metoprolol Succinate [Metoprolol Succinate ER] 25 mg PO QAM Aspirin 81 mg PO DAILY Ibuprofen [Motrin] 600 mg PO Q6HR PRN PRN Reason: Pain Discharge Medication List Levothyroxine Sodium 137 mcg PO MOTUWETHFRSA 05/04/23 [History] Aspirin 81 mg PO DAILY 08/05/23 [History] Metoprolol Succinate [Metoprolol Succinate ER] 25 mg PO QAM 08/05/23 [History] Ibuprofen [Motrin] 600 mg PO Q6HR PRN 02/01/24 [History] oxyCODONE HCL [OxyIR] 5 mg PO Q6H PRN #5 tab 02/02/24 [Rx] Follow up Appointment(s)/Referral(s): Eneida Hernandez MD [STAFF PHYSICIAN] - 02/11/24 3:00 pm Activity/Diet/Wound Care/Special Instructions: Do not drive for 24 hours from discharge or if taking narcotic pain medicine May shower after 48 hours Wear bra at all times unless in shower Discharge Disposition: HOME SELF-CARE
[2024-02-02 14:47] VITALS: TEMP 97.1
[2024-02-02 15:58] VITALS: PULSE 67; RESP 18
[2024-02-02 16:26] VITALS: BP 101/63
--- NOTE | 2024-02-10 08:43 | MM ---
Pathology Description: Approach: Lateral to Medial Needle Type: 9 cm Kopan Pathology Description: Approach: Lateral to Medial Needle Type: 5 cm Kopan The needle localization procedure with wire placement for surgical excision was explained to the patient. Benefits, alternatives, and risks were discussed. An informed consent was then obtained. A timeout was performed. The overlying skin was prepped in usual sterile fashion. Lidocaine was used as anesthetic into the skin and subcutaneous tissue up to the level of area of concern. A 9 cm needle was used. It was placed using a lateral approach under mammographic guidance. Subsequent 90 degrees mammogram show the needle to be in satisfactory position relative to the targeted area. The wire was placed and the needle was withdrawn. Simultaneously, Lidocaine was used as anesthetic into the skin and subcutaneous tissue up to the level of area of concern. A 5 cm needle was used. It was placed using a lateral approach under mammographic guidance towards the more anterior core marker. Subsequent 90 degrees mammogram show the needle to be in satisfactory position relative to the targeted area. The wire was placed and the needle was withdrawn. The wire was fixed to patient's skin. Images were reviewed with the surgeon in person prior to surgery. The patient tolerated the procedure well without any immediate complication. The patient was kept in the radiology department for short stay after the procedure and then taken to surgery for surgical excision. Specimen: Biopsy markers and wires are identified in specimen mammogram. A specimen radiograph was obtained for pathology with section images. 2 core markers are identified. Impression: 1. Successful needle localization with wire placement and surgical excision of biopsy markers. [facility], , 02/03/2024 3:19 PM. Pathology Results: Result: Malignant, Ductal carcinoma in situ, comedo type. Pathology and radiology were reviewed. Findings are concordant. A. LEFT BREAST, LUMPECTOMY: Intermediate to high grade ductal carcinoma in situ (DCIS) with comedo necrosis and calcifications. DCIS focally involves the cauterized superior margin, closely approximates the superior and posterior margins multifocally (within less than 1 mm from the superior and posterior margins multifocally), and is focally less than 2 mm from the medial margin. Other margins negative for DCIS. Background fibrocystic changes, focal atypical lobular hyperplasia (ALH), focal flat epithelial atypia (FEA) not involving the margins, pseudoangiomatous stromal hyperplasia (PASH), and previous biopsy site. See Surgical Pathology Cancer Case Summary. B. LEFT BREAST, SENTINEL NODE: Lymph node negative for metastasis. CK7 immunostain performed on block B1, ASHLEY immunostain performed on block B2, and CKAE1/3 immunostain performed on block B3 are confirmatory (controls appropriate). Overall Assessment: Malignant Management: Surgical Consultation of the left breast. Electronically signed and approved by: Davian Duvall D.O. Radiologis
== END 2024-02-02 16:40 | disposition home or self-care (01) ==
LOC: OR 09:25
PROVIDERS: ATTEND Surgery
DX: D05.12 Intraductal carcinoma in situ of left breast (principal); I47.10 Supraventricular tachycardia, unspecified; E89.0 Postprocedural hypothyroidism; I35.1 Nonrheumatic aortic (valve) insufficiency; F17.210 Nicotine dependence, cigarettes, uncomplicated; Z79.890 Hormone replacement therapy; Z79.82 Long term (current) use of aspirin; Z79.899 Other long term (current) drug therapy; Z85.850 Personal history of malignant neoplasm of thyroid; Z87.74 Personal history of (corrected) congenital malformations of heart and circulatory system; Z80.3 Family history of malignant neoplasm of breast; Z82.49 Family history of ischemic heart disease and other diseases of the circulatory system
CPT/HCPCS: 19301; 38525; 81025; 88342; 88307; 88341; 76098; 19281; 19282; 38792; C1819 ×2; A9520; J2250; J0330; J1644; J1100; J0690; J2405; J2003; J3010; J1171; J2704; J1596

== ENCOUNTER → 2024-02-25 | Outpatient (CLI) | payer BC ==
--- NOTE | 2024-02-12 15:55 | P.PN ---
Subjective Progress Note Date: 02/12/24 Principal diagnosis: DCIS left breast The patient was scheduled for postoperative visit on 02-12-2024. However secondary to weather conditions she was unable to keep the appointment. 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 The DCIS focally involve the cauterized superior margin and closely approximated the superior and posterior margins less than 1 mm multifocally. Additionally if it was focally less than 2 mm from the medial margin. She had a sentinel lymph node removed which was negative for any metastatic disease. I have called the patient and given this information to the patient. She states she is doing well postoperatively. I have recommended reexcision of the superior medial margins and depending of posterior dissection was on the pectoralis muscle additional tissue to be removed posteriorly as well. The patient understands. She will come for a postoperative visit on February 24 and be scheduled for reexcision in the near future.
[2024-02-25 12:32] VITALS: BP 117/75; PULSE 82; RESP 17; TEMP 98.2
--- NOTE | 2024-02-25 12:37 | P.PN ---
Subjective Progress Note Date: 02/25/24 Principal diagnosis: DCIS left breast Subjective Progress Note Date: 02-25-24 Principal diagnosis: DCIS left breast/ positive margin superior and posterior; medially close margin < 2 mm Requesting physician: Michelle Jaquez History of present illness: Lupe is a 33 year old female seen in consultation for DR. Jaquez regarding a left breast biopsy on 12-10-23 which was + DCIS. She had a bilateral breast ultrasound on 11-27-23 which showed a lesion in the left breast. A biopsy was done and + for a fibroadenoma. She was recommended to have a mammogram which showed microclacification of concern at the 3 and 9-10 oclock position. No lesions in the right breast. She had a left breast stero biopsy on 12-10-23 which showed DCIS. She is complaining of pain in both breast for several months. She has not felt any lumps masses or nodules of concern in either breast. The ultrasound led to a core biopsy on 12-17-2023 of the left breast at 2:00 which was positive for fibroadenoma. However this led to bilateral mammograms showing microcalcifications at 2 sites in the left breast resulting in a stereo biopsy of the 3 o'clock position which showed DCIS. The patient is now recommended to have a stereo biopsy of the other side at the 9 to 10 o'clock position in the left breast. ultrasound of pelvis recommended an MRI scheduled for December; MRI of pelvis no spspecious pelvic mass The patient on 12-24-2023 underwent a stereotactic core biopsy of a second site of microcalcifications in the left breast. This revealed flat epithelial atypia. The patient tolerated this in stable condition. A Top-Hat clip was placed here this is a posterior Top-Hat clip. The anterior Top-Hat clip DCIS. Case presented at tumor board on 01-05-2024. Recommendation to await genetic testing if this is positive consider bilateral mastectomy if genetic testing is negative bracket left breast lumpectomy with sentinel node biopsy. Genetic testing (-) note radiation oncology reviewed: 01-15-24 plan on radiation after surgery She underwent excision on 02-02-24 and was noted to have 4.8 cm area of DCIS with close medial < 2mm and + multifocal superior and posterior margins, sentinal node (-). She tolerated the lumpectomy without difficulty. The patient was scheduled for postoperative visit on 02-12-2024. However secondary to weather conditions she was unable to keep the appointment. 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 The DCIS focally involve the cauterized superior margin and closely approximated the superior and posterior margins less than 1 mm multifocally. Additionally if it was focally less than 2 mm from the medial margin. She had a sentinel lymph node removed which was negative for any metastatic disease. I have called the patient and given this information to the patient. She states she is doing well postoperatively. I have recommended reexcision of the superior medial margins and depending of posterior dissection was on the pectoralis muscle additional tissue to be removed posteriorly as we ll. The patient understands. She will come for a postoperative visit on February 24 and be scheduled for reexcision in the near future. caffiene: pop occasional nicotine: 1 PPD for 20 years BCP: none hormones: none chocolate: occasional Family History: paternal grandmother: bilateral breast cancer, at 56 maternal grandfather: colon cancer Hormonal History: menarche: 11 periods regular, last period 1 week ago Surgical History: atrial septal defect closure Total thyroidectomy for cancer at the age of 30, no radiation no chemo takes thyroid replacement Pericardial effusion Cardiac catheterization Medical history: heart defect sees Dr. Cook thyroid disease DR. Velez uses aspirin daily Social History: nicotine: as above alcohol: several times a week liquor drugs: none Review of Systems - Constitutional Denies fever, Denies weight loss - EENT Eyes: denies blurred vision Ears: deny: decreased hearing, tinnitus Ears, nose, mouth and throat: Denies dysphagia - Breasts bilateral: as per HPI - Cardiovascular Reports as per HPI - Respiratory Reports as per HPI, Reports cough - Gastrointestinal Reports as per HPI - Genitourinary Genitourinary: Denies dysuria, Denies hematuria Menstruation: Reports as per HPI - Musculoskeletal Reports as per HPI - Integumentary Reports rash, Reports unusual bruising - Neurological Denies headaches, Denies syncope - Psychiatric Reports as per HPI - Endocrine Reports as per HPI, Reports fatigue - Hematologic/Lymphatic Reports as per HPI Past Medical History Past Medical History: Cancer, Chest Pain / Angina Additional Past Medical History / Comment(s): Amplatzer septal occluder. Hole in heart. , ovarian cyst History of Any Multi-Drug Resistant Organisms: None Reported Additional Past Surgical History / Comment(s): "heart surgery" 2014. Thyroidectomy 2021 Past Anesthesia/Blood Transfusion Reactions: No Reported Reaction Additional Past Anesthesia/Blood Transfusion Reaction / Comm: no hx blood tr ansfusion Past Psychological History: No Psychological Hx Reported Smoking Status: Current every day smoker Past Alcohol Use History: Daily Additional Past Alcohol Use History / Comment(s): started smoking at age 11,1ppd,drinks rum or vodka-drinks more than 7 drinks per week-approx up to 10 per week. 12-10-23 pt states she drinks once a week 2-3 drinka Past Drug Use History: Marijuana - Past Family History Mother Family Medical History: No Reported History Additional Family Medical History / Comment(s): maternal grandfather colon CA Father Family Medical History: Cancer Additional Family Medical History / Comment(s): lung CA. paternal grandmother breast CA Medications and Allergies Home Medications Medication Instructions Recorded Confirmed Type Levothyroxine Sodium 137 mcg PO MOTUWETHFRSA 05/04/23 12/23/23 History Aspirin 81 mg PO DAILY 08/05/23 12/23/23 History Metoprolol Succinate [Metoprolol 25 mg PO QAM 08/05/23 12/23/23 History Succinate ER] Allergies Allergy/AdvReac Type Severity Reaction Status Date / Time sumatriptan [From Imitrex] Allergy facial and Verified 12/23/23 08:41 anshu hand swelling Objective - Vital Signs Vital signs: Intake & Output 02/24/24 02/25/24 02/25/24 18:59 06:59 18:59 Weight 59.874 kg - Constitutional General appearance: Present: cooperative - EENT Eyes: Present: EOMI ENT: Present: hearing grossly normal - Neck Neck: Present: normal ROM - Respiratory Respiratory: bilateral: CTA - Cardiovascular Rhythm: regular Heart sounds: normal: S1, S2 - Integumentary Integumentary: Present: normal turgor - Musculoskeletal Musculoskeletal: Present: gait normal - Psychiatric Psychiatric: Present: A&O x's 3, appropriate affect, intact judgment & insight - Additional findings Additional findings: Breast Exam: ( done on 01-28-24) BRA: 36C inspection: Bilateral grade 2 ptosis, incision clean and dry lateral aspect of left breast Palpation: Right breast: Multi positional exam no dominant masses or nodules of concern, Right axilla: No adenopathy of concern Left breast: Mild seroma left breast, incision clean and dry lateral aspect of left breast Left axilla: No adenopathy of concern Assessment and Plan Assessment: Impression: 1. Prior history of thyroid cancer/status post total thyroidectomy patient did not have radiation or any chemotherapy she is on thyroid replacement 2. Atrial septal defect treated with surgical intervention, she takes aspirin daily and follows with cardiology Dr. Cook 3. DCIS removed via lumpectomy size was 4.8 cm, close medial, positive superior and posterior margins 4. Change noted on ultrasound of the pelvis resulting in recommendation for a pelvic MRI which has been scheduled for December 31 for a complex multilocular cystic area in the left adnexa this was benign this was ordered by DR. Jaquez Plan: Reexcision of medial, superior, posterior margins of left breast lumpectomy site, possible oncoplastic tissue transfer cardiac clearance clearance Dr. Tijerina Risks and benefits of reexcision. She understands that risks include but are not limited to bleeding, infection, reaction to the anesthetic. If there were to be positive margins again most likely we would recommend mastectomy. Additional CC's: Michelle Jaquez
== END ==
LOC: WWCWWP 11:12
PROVIDERS: ATTEND Surgery
DX: Q21.10 Atrial septal defect, unspecified (principal); N83.8 Other noninflammatory disorders of ovary, fallopian tube and broad ligament; Z79.82 Long term (current) use of aspirin; Z90.89 Acquired absence of other organs; Z40.01 Encounter for prophylactic removal of breast; Z80.3 Family history of malignant neoplasm of breast; Z88.8 Allergy status to other drugs, medicaments and biological substances

== ENCOUNTER 2024-03-07 11:52 | Emergency (ER) | payer BC ==
[2024-03-07 12:42] VITALS: RESP 18
--- NOTE | 2024-03-07 13:20 | ED ---
Skin/Abscess/FB HPI - General Chief complaint: Skin/Abscess/Foreign Body Stated complaint: surgical incision open Time Seen by Provider: 03/07/24 13:19 Source: patient, family, RN notes reviewed, old records reviewed Mode of arrival: ambulatory Limitations: no limitations - History of Present Illness Initial comments: 33-year-old female presented to the ER for evaluation of breast wound and drainage. Patient states she underwent left breast lumpectomy by Dr. Helio Isbell on 02-02-2024. Upon chart review, specimen reviewed showing intermediate to high-grade ductal carcinoma in situ with necrosis and calcifications. Patient states since surgery she has been having an increase in pain and fluctuance to the area. Patient was seen in office with Dr. Helio Isbell last Thursday and had needle aspiration performed. Patient states she was not started on antibiotics. Within the past 2 days she has noticed worsening redness and states her wound "popped" this morning. She notes a large amount of blood-tinged purulent drainage from area. She denies any fevers or chills. She has not taken anything for pain at this time as she is scheduled for second lumpectomy tomorrow. She has no other complaints. - Related Data Home Medications Medication Instructions Recorded Confirmed Levothyroxine Sodium 137 mcg PO MOTUWETHFRSA 05/04/23 03/08/24 Aspirin 81 mg PO DAILY 08/05/23 03/08/24 Metoprolol Succinate [Metoprolol 25 mg PO QAM 08/05/23 03/08/24 Succinate ER] Ibuprofen [Motrin] 600 mg PO Q6HR PRN 02/01/24 03/08/24 Previous Rx's Medication Instructions Recorded Amoxic-Pot Clav 875-125Mg 1 tab PO Q12HR 10 Days #20 tab 03/07/24 [Augmentin 875-125] oxyCODONE HCL [OxyIR] 5 mg PO Q6H PRN #10 tab 03/08/24 Allergies Allergy/AdvReac Type Severity Reaction Status Date / Time nitrile Allergy Rash/Hives Verified 03/08/24 07:48 sumatriptan [From Imitrex] Allergy Anaphylaxis Verified 03/08/24 07:48 Review of Systems ROS Statement: Those systems with pertinent positive or pertinent negative responses have been documented in the HPI. ROS Other: All systems not noted in ROS Statement are negative. Past Medical History Past Medical History: Cancer, Chest Pain / Angina Additional Past Medical History / Comment(s): Amplatzer septal occluder. Hole in heart. , ovarian cyst. !0-2023 Left breast cancer History of Any Multi-Drug Resistant Organisms: None Reported Additional Past Surgical History / Comment(s): "heart surgery" 2014. Thyroidectomy 2021 Past Anesthesia/Blood Transfusion Reactions: No Reported Reaction Additional Past Anesthesia/Blood Transfusion Reaction / Comment(s): no hx blood transfusion Past Psychological History: No Psychological Hx Reported Smoking Status: Current every day smoker Past Alcohol Use History: Occasional Past Drug Use History: None Reported - Past Family History Mother Family Medical History: No Reported History Additional Family Medical History / Comment(s): maternal grandfather colon CA Father Family Medical History: Cancer Additional Family Medical History / Comment(s): lung CA. paternal grandmother breast CA General Exam Limitations: no limitations General appearance: alert, in no apparent distress Respiratory exam: Present: normal lung sounds bilaterally. Absent: respiratory distress, wheezes, rales, rhonchi, stridor Cardiovascular Exam: Present: regular rate, normal rhythm, normal heart sounds. Absent: systolic murmur, diastolic murmur, rubs, gallop, clicks Neurological exam: Present: alert, oriented X3, CN II-XII intact Skin exam: Present: warm, dry, intact, normal color, other (3cm wound dehiscence noted to left lateral breast around the 5 o'clock position. There is minimal purulent drainage present. Minimal surrounding erythema. Area is tender to touch. No nipple discharge.). Absent: rash Course Vital Signs 03/07/24 03/07/24 12:36 15:01 Temperature 98.2 F 98.1 F Pulse Rate 87 72 Respiratory 18 18 Rate Blood Pressure 127/69 115/70 O2 Sat by Pulse 99 98 Oximetry - Reevaluation(s) Reevaluation #1: 03/07/24 14:[address] Hernandez who advised on outpatient antibiotics and follow-up for scheduled surgery tomorrow. Medical Decision Making - Medical Decision Making Was pt. sent in by a medical professional or institution (, PA, AQUATICS DIRECTOR, urgent care, hospital, or correction...) When possible be specific @ -No Did you speak to anyone other than the patient for history (EMS, parent, family, police, friend...)? What history was obtained from this source @ -No Did you review nursing and triage notes (agree or disagree)? Why? @ -I reviewed and agree with nursing and triage notes Were old charts reviewed (outside hosp., previous admission, EMS record, old EKG, old radiological studies, urgent care reports/EKG's, correction records)? Report findings @ -Yes, I reviewed surgical notes and previous ER visits where patient had malignancy removed from left breast performed by Dr. Helio Isbell. Differential Diagnosis (chest pain, altered mental status, abdominal pain women, abdominal pain men, vaginal bleeding, weakness, fever, dyspnea, syncope, headache, dizziness, GI bleed, back pain, seizure, CVA, palpatations, mental health, musculoskeletal)? @ -Breast abscess, mastitis, malignancy, wound dehiscence, infection... This list is not meant to be all-inclusive EKG interpreted by me (3pts min.). @ -None done X-rays interpreted by me (1pt min.). @ -None done CT interpreted by me (1pt min.). @ -None done U/S interpreted by me (1pt. min.). @ -None done What testing was considered but not performed or refused? (CT, X-rays, U/S, labs)? Why? @ -Ultrasound considered but not performed as patient has an open wound. What meds were considered but not given or refused? Why? @ -None Did you discuss the management of the patient with other professionals (professionals i.e. , PA, AQUATICS DIRECTOR, lab, RT, psych nurse, social service agency director, card punching machine operator, teacher, real estate officer, medical case manager)? Give summary @ -Yes, case discussed with Dr. Helio Isbell who advised on oral antibiotics, packing and discharge as patient has surgery scheduled with her tomorrow. Was smoking cessation discussed for >3mins.? @ -No Was critical care preformed (if so, how long)? @ -No Were there social determinants of health that impacted care today? How? (Homelessness, low income, unemployed, alcoholism, drug addiction, transportatio n, low edu. Level, literacy, decrease access to med. care, [facility], rehab)? @ -No Was there de-escalation of care discussed even if they declined (Discuss DNR or withdrawal of care, Hospice)? DNR status @ -No What co-morbidities impacted this encounter? (DM, HTN, Smoking, COPD, CAD, Cancer, CVA, ARF, Chemo, Hep., AIDS, mental health diagnosis, sleep apnea, morbid obesity)? @ -Breast cancer Was patient admitted / discharged? Hospital course, mention meds given and route, prescriptions, significant lab abnormalities, going to OR and other pertinent info. @ -Discharged. 33-year-old female presenting to the ER for evaluation of left breast surgical wound drainage and pain. Exam remarkable for a 3 cm area of wound dehiscence noted to left breast around the 5 o'clock position. Area is tender to touch with no nipple discharge present. Laboratory studies obtained showing a leukocytosis of 11.4 with a left shift. CMP unremarkable. Lactic 0.6. Patient given symptomatic control in the ER with IV fluids, Tylenol and Dilaudid. Ultrasound considered but not performed as patient has an open wound and this will increase infection risks. Case was discussed with Dr. Helio Isbell who advised on outpatient management with oral antibiotics as patient is scheduled for surgery on her left breast again tomorrow. Wound packed with sterile packing, per Dr. Hernandez. Wound culture pending. Patient started on Augmentin, first dose in the ER. Patient discharged with a Tylenol 3 starter pack and instructed to follow-up with Dr. Helio Isbell tomorrow as scheduled. Strict return parameters discussed. Patient discharged in stable condition with follow-up to PCP. Patient verbally expressed understanding and agreement with care plan. Case discussed with ED attending, Dr. Ruano. Undiagnosed new problem with uncertain prognosis? @ -No Drug Therapy requiring intensive monitoring for toxicity (Heparin, Nitro, Insulin, Cardizem)? @ -No Were any procedures done? @ -No Diagnosis/symptom? @ -Wound dehiscence/breast pain Acute, or Chronic, or Acute on Chronic? @ -Acute Uncomplicated (without systemic symptoms) or Complicated (systemic symptoms)? @ -Uncomplicated Side effects of treatment? @ -No Exacerbation, Progression, or Severe Exacerbation? @ -No Poses a threat to life or bodily function? How? (Chest pain, [place], [place], pneumonia, PE, COPD, DKA, ARF, appy, cholecystitis, CVA, Diverticulitis, Homicidal, Suicidal, threat to staff... and all critical care pts) @ -Yes, malignancy is life-threatening. - Lab Data Result diagrams: 03/07/24 13:31 03/07/24 13:31 Lab Results 03/07/24 03/07/24 03/07/24 Range/Units 13:31 13:31 13:31 WBC 11.4 H (3.8-10.6) k/uL RBC 4.63 (3.80-5.40) m/uL Hgb 13.5 (11.4-16.0) gm/dL Hct 41.0 (34.0-46.0) % MCV 88.6 (80.0-100.0) fL MCH 29.2 (25.0-35.0) pg MCHC 33.0 (31.0-37.0) g/dL RDW 12.7 (11.5-15.5) % Plt Count 338 (150-450) k/uL MPV 6.5 Neutrophils % 78 % Lymphocytes % 14 % Monocytes % 5 % Eosinophils % 1 % Basophils % 1 % Neutrophils # 9.0 H (1.3-7.7) k/uL Lymphocytes # 1.6 (1.0-4.8) k/uL Monocytes # 0.6 (0-1.0) k/uL Eosinophils # 0.1 (0-0.7) k/uL Basophils # 0.1 (0-0.2) k/uL Sodium 138 (137-145) mmol/L Potassium 3.6 (3.5-5.1) mmol/L Chloride 107 (98-107) mmol/L Carbon Dioxide 24 (22-30) mmol/L Anion Gap 7 mmol/L BUN 11 (7-17) mg/dL Creatinine 0.61 (0.52-1.04) mg/dL Est GFR (CKD-EPI)AfAm >90 (>60 ml/min/1.73 sqM) Est GFR (CKD-EPI)NonAf >90 (>60 ml/min/1.73 sqM) Glucose 85 (74-99) mg/dL Plasma Lactic Acid Talha 0.6 L (0.7-2.0) mmol/L Calcium 9.5 (8.4-10.2) mg/dL Total Bilirubin 0.8 (0.2-1.3) mg/dL AST 19 (14-36) U/L ALT 21 (4-34) U/L Alkaline Phosphatase 85 (38-126) U/L Total Protein 6.8 (6.3-8.2) g/dL Albumin 4.2 (3.5-5.0) g/dL Disposition Clinical Impression: Wound dehiscence Disposition: HOME SELF-CARE Condition: Stable Additional Instructions: Take Augmentin as prescribed, you received the first dose in the ER. Take Tylenol threes every 6 hours as needed for pain. Continue to ice and use heat as well for pain control. Follow-up as scheduled with Dr. Hernandez tomorrow for scheduled surgical procedure. Return to the ER for any new or worsening concerns. Prescriptions: Amoxic-Pot Clav 875-125Mg [Augmentin 875-125] 1 tab PO Q12HR 10 Days #20 tab Is patient prescribed a controlled substance at d/c from ED?: No Referrals: Michelle Jaquez MD [Primary Care Provider] - 1-2 days Eneida Hernandez MD [STAFF PHYSICIAN] - 1-2 days Time of Disposition: 14:50
[2024-03-07] MEDS: SODIUM CHLORIDE 0.9% 1,000 ML IV STA (13:35)
[2024-03-07] MEDS: ACETAMINOPHEN TAB 325 MG TAB PO STA (13:38)
[2024-03-07 13:40] LABS: Basophils # (A) 0.1 k/uL (0-0.2); Basophils % (A) 1 %; Eosinophils # (A) 0.1 k/uL (0-0.7); Eosinophils % (A) 1 %; HGB 13.5 gm/dL (11.4-16.0); Lymphocytes # (A) 1.6 k/uL (1.0-4.8); Lymphocytes % (A) 14 %; MCH 29.2 pg (25.0-35.0); MCV 88.6 fL (80.0-100.0); Mean Platelet Volume 6.5; Monocytes # (A) 0.6 k/uL (0-1.0); Monocytes % (A) 5 %; Neutrophils % (A) 78 %; Platelet Count 338 k/uL (150-450); RBC 4.63 m/uL (3.80-5.40); RDW 12.7 % (11.5-15.5); WBC 11.4 k/uL (3.8-10.6)
[2024-03-07] MEDS: HYDROmorphone 0.5 MG/0.5 ML SYRINGE IVP STA ×2 (13:40→14:57)
[2024-03-07 13:48] LABS: ALT 21 U/L (4-34); AST 19 U/L (14-36); African American GFR (CKD) >90 (>60 ml/min/1.73 sqM); Albumin 4.2 g/dL (3.5-5.0); Alkaline Phosphatase 85 U/L (38-126); Anion Gap 7 mmol/L; Blood Urea Nitrogen 11 mg/dL (7-17); Calcium 9.5 mg/dL (8.4-10.2); Carbon Dioxide 24 mmol/L (22-30); Chloride 107 mmol/L (98-107); Glucose 85 mg/dL (74-99); Non-African American GFR(CKD) >90 (>60 ml/min/1.73 sqM); Potassium 3.6 mmol/L (3.5-5.1); Sodium 138 mmol/L (137-145); Total Bilirubin 0.8 mg/dL (0.2-1.3); Total Protein 6.8 g/dL (6.3-8.2)
[2024-03-07] MEDS: AMOXIC-POT CLAV 875-125MG 1 EACH TAB PO STA (14:52)
[2024-03-07] MEDS: ACET/COD 300 MG/30 MG STARTER PACK 6 TAB BTL PO STA (14:57)
[2024-03-07 15:04] VITALS: BP 115/70; PULSE 72; TEMP 98.1
== END 2024-03-07 15:20 | disposition home or self-care (01) ==
LOC: EC 11:52
DX: T81.31XA Disruption of external operation (surgical) wound, not elsewhere classified, initial encounter (principal); N64.4 Mastodynia; D72.829 Elevated white blood cell count, unspecified; B95.62 Methicillin resistant Staphylococcus aureus infection as the cause of diseases classified elsewhere; F17.200 Nicotine dependence, unspecified, uncomplicated; Z85.3 Personal history of malignant neoplasm of breast; Z88.8 Allergy status to other drugs, medicaments and biological substances
CPT/HCPCS: 36415; 80053; 83605; 85025; 87070; 87205; 87077; 87186; 99284; 96374; 96361; J1171

== ENCOUNTER 2024-03-08 07:24 | Day surgery (SDC) | payer BC ==
[2024-03-08] MEDS: IV FLUID CONTINUATION 1,000 ML IV ONE (07:35)
[2024-03-08] MEDS ORDERED: MIDAZOLAM 2 MG/2 ML VIAL IV PRN (07:39)
[2024-03-08] MEDS ORDERED: LIDOCAINE 1% (10MG/ML) FOR IV START INTRADERMA PRN (07:39)
[2024-03-08] MEDS ORDERED: fentaNYL (PF) 50 MCG/ML 2 ML AMP IVP PRN (07:39)
[2024-03-08] MEDS: LACTATED RINGERS 1,000 ML IV SCH (07:59)
[2024-03-08] MEDS: FAMOTIDINE 20 MG/2 ML VIAL IV STA (08:00)
[2024-03-08] MEDS: ONDANSETRON 4 MG/2 ML VIAL IVP ONE (08:00)
[2024-03-08] MEDS: DEXAMETHASONE SOD PHOSPHATE 4 MG/ML 1 ML VIAL IV ONE (08:01)
[2024-03-08] MEDS: HEPARIN SODIUM,PORCINE 5,000 UNIT/ML 1 ML VIAL SQ PRN (08:01)
[2024-03-08] MEDS: ACETAMINOPHEN TAB 500 MG TAB PO PRN (08:04)
[2024-03-08] MEDS ORDERED: MIDAZOLAM 2 MG/2 ML VIAL ONE (08:35)
[2024-03-08] MEDS ORDERED: PROPOFOL 10 MG/ML 20 ML VIAL IV ONE (08:35)
[2024-03-08] MEDS ORDERED: LIDOCAINE 1% INJ 10MG/ML (20 ML MDV) ONE (08:35)
[2024-03-08] MEDS ORDERED: fentaNYL (PF) 50 MCG/ML 2 ML AMP ONE (08:35)
--- NOTE | 2024-03-08 08:50 | P.NAPBC ---
NAPBC Queries - NAPBC Queries Was patient's case review presented at [facility] tumor board? If no, comment.: Yes Was patient's pathology reviewed at [facility]? If no, comment.: Yes Was breast conservation surgery offered? If no, comment.: Yes Was sentinel node biopsy offered? If no, comment.: Yes Was diagnosis confirmed by percutaneous core biopsy? If no, comment.: Yes Is patient mastectomy patient?: No Clinical Stage: DCIS with a + margin patient for re-excision
[2024-03-08] MEDS: LIDOCAINE 1% INJ 10MG/ML (20 ML MDV) SQ ONE ×3 (09:02→09:55)
--- NOTE | 2024-03-08 09:59 | P.BCAON ---
Date of Procedure: 03/08/24 Preoperative Diagnosis: DCIS positive superior posterior and close medial margin Postoperative Diagnosis: Same Procedure(s) Performed: Reexcision lumpectomy cavity left breast, oncoplastic tissue transfer 9 cm Anesthesia: NANCY Surgeon: Eneida Hernandez Estimated Blood Loss (ml): 5 IV fluids (ml): 500 Pathology: other (Left breast tissue) Condition: stable Disposition: same day Indications for Procedure: Positive margins Superior DCIS/close medial/positive posterior Operative Findings: Dense breast tissue Description of Procedure: The patient was brought to the operating room and following induction of general anesthesia the left breast was prepped and draped in a sterile fashion. She had been seen in the emergency room yesterday because they medial portion of the wound had opened with some drainage of seroma fluid. This was well irrigated. The cavity of prior resection was grasped superior and medially. Approximately a 8 mm thickness was resected superiorly medially and inferiorly. Posteriorly the dissection was already onto the pectoralis muscle. After the tissue had been excised the external surface was painted. External surface superior medial inferior were all painted for new margin. After this was done the wound was well irrigated. Posteriorly the dissection was dissected onto the pectoralis muscle. A superior pillar 3 x 3 cm was formed. An inferior pillar 3 x 3 cm was formed. Titanium clips were placed in the cavity. Surgicel in powder form was placed in the cavity. This was done after reassured that hemostasis was attained. The pillars were brought together to close the defect. After this was accomplished the subcutaneous tissue was closed using 3-0 Vicryl suture. The skin was closed using 4-0 Monocryl. A running nylon suture was placed on the skin. 10 cc of 1% lidocaine were placed in the incision. The patient tolerated the procedure in stable condition.
[2024-03-08 10:15] VITALS: TEMP 97
[2024-03-08] MEDS: HYDROmorphone 0.5 MG/0.5 ML SYRINGE IVP PRN (10:30)
[2024-03-08 12:09] VITALS: RESP 18
[2024-03-08 12:11] VITALS: BP 109/63; PULSE 63
== END 2024-03-08 12:28 | disposition home or self-care (01) ==
LOC: OR 07:24
PROVIDERS: ATTEND Surgery
DX: D05.12 Intraductal carcinoma in situ of left breast (principal); I20.9 Angina pectoris, unspecified; F17.210 Nicotine dependence, cigarettes, uncomplicated; E07.9 Disorder of thyroid, unspecified; F41.9 Anxiety disorder, unspecified; F10.99 Alcohol use, unspecified with unspecified alcohol-induced disorder; Q21.10 Atrial septal defect, unspecified; Z88.9 Allergy status to unspecified drugs, medicaments and biological substances; Z91.040 Latex allergy status; Z79.890 Hormone replacement therapy; Z79.899 Other long term (current) drug therapy
CPT/HCPCS: 81025; 88307; 19301; 15777; J2250; J1644; J1100; J0690; J2405; J2003; J3010; J3490; J2704; J1171

== ENCOUNTER → 2024-03-10 | Outpatient (CLI) | payer BC ==
[2024-03-10 11:49] VITALS: BP 137/78; PULSE 71; RESP 16; TEMP 97.6
--- NOTE | 2024-03-10 12:22 | P.PN ---
Subjective Progress Note Date: 03/10/24 Principal diagnosis: DCIS left breast Subjective Progress Note Date: 03-10-24 Principal diagnosis: DCIS left breast/ positive margin superior and posterior; medially close margin < 2 mm; then 03-08-2024 positive superior focal margin multifocally close margins medially and superiorly Requesting physician: Michelle Jaquez History of present illness: Lupe is a 33 year old female seen in consultation for DR. Jaquez regarding a left breast biopsy on 12-10-23 which was + DCIS. She had a bilateral breast ultrasound on 11-27-23 which showed a lesion in the left breast. A biopsy was done and + for a fibroadenoma. She was recommended to have a mammogram which showed microclacification of concern at the 3 and 9-10 oclock position. No lesions in the right breast. She had a left breast stero biopsy on 12-10-23 which showed DCIS. She is complaining of pain in both breast for several months. She has not felt any lumps masses or nodules of concern in either breast. The ultrasound led to a core biopsy on 12-17-2023 of the left breast at 2:00 which was positive for fibroadenoma. However this led to bilateral mammograms showing microcalcifications at 2 sites in the left breast resulting in a stereo biopsy of the 3 o'clock position which showed DCIS. The patient is now recommended to have a stereo biopsy of the other side at the 9 to 10 o'clock position in the left breast. ultrasound of pelvis recommended an MRI scheduled for December; MRI of pelvis no spspecious pelvic mass The patient on 12-24-2023 underwent a stereotactic core biopsy of a second site of microcalcifications in the left breast. This revealed flat epithelial atypia. The patient tolerated this in stable condition. A Top-Hat clip was placed here this is a posterior Top-Hat clip. The anterior Top-Hat clip DCIS. Case presented at tumor board on 01-05-2024. Recommendation to await genetic testing if this is positive consider bilateral mastectomy if genetic testing is negative bracket left breast lumpectomy with sentinel node biopsy. Genetic testing (-) note radiation oncology reviewed: 01-15-24 plan on radiation after surgery She underwent excision on 02-02-24 and was noted to have 4.8 cm area of DCIS with close medial < 2mm and + multifocal superior and posterior margins, sentinal node (-). She tolerated the lumpectomy without difficulty. The patient was scheduled for postoperative visit on 02-12-2024. However secondary to weather conditions she was unable to keep the appointment. 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 The DCIS focally involve the cauterized superior margin and closely approximated the superior and posterior margins less than 1 mm multifocally. Additionally if it was focally less than 2 mm from the medial margin. She had a sentinel lymph node removed which was negative for any metastatic disease. I have called the patient and given this information to the patient. She states she is doing well postoperatively. I have recommended reexcision of the superior medial margins and depending of posterior dissection was on the pectoralis muscle additional tissue to be removed posteriorly as well. The patient understands. She will come for a postoperative visit on February 24 and be scheduled for reexcision in the near future. Secondary to Positive margins she underwent a repeat excision on 03-08-2024. Pathology from this revealed focally positive superior margin and close superior and medial margins multifocally. After discussion with the patient she has chosen to have a left mastectomy. We have discussed reconstruction and I have given her the option of seeing a plastic surgeon but at this time she would like to just have the mastectomy and has declined reconstruction immediately. caffiene: pop occasional nicotine: 1 PPD for 20 years BCP: none hormones: none chocolate: occasional Family History: paternal grandmother: bilateral breast cancer, at 56 maternal grandfather: colon cancer Hormonal History: menarche: 11 periods regular, last period 1 week ago Surgical History: atrial septal defect closure Total thyroidectomy for cancer at the age of 30, no radiation no chemo takes thyroid replacement Pericardial effusion Cardiac catheterization Medical history: heart defect sees Dr. Cook thyroid disease DR. Velez uses aspirin daily Social History: nicotine: as above alcohol: several times a week liquor drugs: none Review of Systems - Constitutional Denies fever, Denies weight loss - EENT Eyes: denies blurred vision Ears: deny: decreased hearing, tinnitus Ears, nose, mouth and throat: Denies dysphagia - Breasts bilateral: as per HPI - Cardiovascular Reports as per HPI - Respiratory Reports as per HPI, Reports cough - Gastrointestinal Reports as per HPI - Genitourinary Genitourinary: Denies dysuria, Denies hematuria Menstruation: Reports as per HPI - Musculoskeletal Reports as per HPI - Integumentary Reports rash, Reports unusual bruising - Neurological Denies headaches, Denies syncope - Psychiatric Reports as per HPI - Endocrine Reports as per HPI, Reports fatigue - Hematologic/Lymphatic Reports as per HPI Past Medical History Past Medical History: Cancer, Chest Pain / Angina Additional Past Medical History / Comment(s): Amplatzer septal occluder. Hole in heart. , ovarian cyst History of Any Multi-Drug Resistant Organisms: None Reported Additional Past Surgical History / Comment(s): "heart surgery" 2014. Thyroidectomy 2021 Past Anesthesia/Blood Transfusion Reactions: No Reported Reaction Additional Past Anesthesia/Blood Transfusion Reaction / Comm: no hx blood transfusion Past Psychological History: No Psychological Hx Reported Smoking Status: Current every day smoker Past Alcohol Use History: Daily Additional Past Alcohol Use History / Comment(s): started smoking at age 11,1ppd,drinks rum or vodka-drinks more than 7 drinks per week-approx up to 10 per week. 12-10-23 pt states she drinks once a week 2-3 drinka Past Drug Use History: Marijuana - Past Family History Mother Family Medical History: No Reported History Additional Family Medical History / Comment(s): maternal grandfather colon CA Father Family Medical History: Cancer Additional Family Medical History / Comment(s): lung CA. paternal grandmother breast CA Medications and Allergies Home Medications Medication Instructions Recorded Confirmed Type Levothyroxine Sodium 137 mcg PO MOTUWETHFRSA 05/04/23 12/23/23 History Aspirin 81 mg PO DAILY 08/05/23 12/23/23 History Metoprolol Succinate [Metoprolol 25 mg PO QAM 08/05/23 12/23/23 History Succinate ER] Allergies Allergy/AdvReac Type Severity Reaction Status Date / Time sumatriptan [From Imitrex] Allergy facial and Verified 12/23/23 08:41 anshu hand swelling Objective - Vital Signs Vital signs: Vital Signs Temp 97.6 F 03/10/24 11:46 Pulse 71 03/10/24 11:46 Resp 16 03/10/24 11:46 BP 137/78 03/10/24 11:46 Pulse Ox 99 03/10/24 11:46 FiO2 Intake & Output 03/09/24 03/10/24 03/10/24 18:59 06:59 18:59 Weight 60.781 kg - Constitutional General appearance: Present: cooperative - EENT Eyes: Present: EOMI ENT: Present: hearing grossly normal - Neck Neck: Present: normal ROM - Respiratory Respiratory: bilateral: CTA - Cardiovascular Rhythm: regular Heart sounds: normal: S1, S2 - Integumentary Integumentary: Present: normal turgor - Musculoskeletal Musculoskeletal: Present: gait normal - Psychiatric Psychiatric: Present: A&O x's 3, appropriate affect, intact judgment & insight - Additional findings Additional findings: Breast Exam: ( done on 01-28-24) BRA: 36C inspection: right breast grade 2 ptosis, incision clean and dry lateral aspect of left breast Palpation: Right breast: Multi positional exam no dominant masses or nodules of concern, Right axilla: No adenopathy of concern Left breast: incision clean and dry lateral aspect of left breast Left axilla: No adenopathy of concern Assessment and Plan Assessment: Impression: 1. Prior history of thyroid cancer/status post total thyroidectomy patient did not have radiation or any chemotherapy she is on thyroid replacement 2. Atrial septal defect treated with surgical intervention, she takes aspirin daily and follows with cardiology Dr. Cook 3. DCIS removed via lumpectomy size was 4.8 cm, close medial, positive superior and posterior margins; performed on 03-08-2024. This revealed focally positive superior margin and close superior and medial margins multifocally. 4. Change noted on ultrasound of the pelvis resulting in recommendation for a pelvic MRI which has been scheduled for December 31 for a complex multilocular cystic area in the left adnexa this was benign this was ordered by DR. Jaquez Plan: Secondary to the residual multifocal disease in the left breast at this time after discussion the patient would like to have a mastectomy performed. We have discussed reconstruction and she would like to wait on the reconstruction. However we will leave subcutaneous tissue and skin such that she can have reconstruction in the future if she would choose. Clearance Dr. Cook cardiology clearance Dr. Jaquez Surgical procedure: Left breast mastectomy Functional assessment; Patient passes arm abduction test without any difficulty Preoperative education given to the patient Risk and benefits of the procedure discussed with the patient. Risk include but are not limited to bleeding, infection, reaction to the anesthetic. The patient understands and wished to proceed. We have also discussed the right breast however at this time there is nothing radiographically or on physical exam which would warrant any biopsies. She understands that in the future this may be, necessary but right now we will not do a right breast surgery.
== END ==
LOC: WWCWWP 11:39
PROVIDERS: ATTEND Surgery
DX: D05.12 Intraductal carcinoma in situ of left breast (principal); Q21.10 Atrial septal defect, unspecified; Z85.850 Personal history of malignant neoplasm of thyroid; Z80.3 Family history of malignant neoplasm of breast; Z90.12 Acquired absence of left breast and nipple; Z88.8 Allergy status to other drugs, medicaments and biological substances

== ENCOUNTER 2024-03-17 10:39 | Day surgery (SDC) | payer BC ==
[~2024-03-17 10:39] MED LIST changes: -HYDROmorphone 0.5 MG/0.5 ML SYRINGE IVP PRN; -MIDAZOLAM 2 MG/2 ML VIAL IV PRN; -SCOPOLAMINE 1 MG/72 HR PATCH TRANSDERM ONE; +fentaNYL (PF) 50 MCG/ML 2 ML AMP IVP PRN
[2024-03-17] MEDS: LACTATED RINGERS 1,000 ML IV SCH (11:30)
[2024-03-17] MEDS: IV FLUID CONTINUATION 1,000 ML IV ONE (11:30)
[2024-03-17] MEDS: LIDOCAINE 1% (10MG/ML) FOR IV START INTRADERMA PRN (11:30)
[2024-03-17] MEDS: ACETAMINOPHEN TAB 500 MG TAB PO PRN (11:42)
[2024-03-17] MEDS: DEXAMETHASONE SOD PHOSPHATE 4 MG/ML 1 ML VIAL IV ONE (11:43)
[2024-03-17] MEDS: ONDANSETRON 4 MG/2 ML VIAL IVP ONE (11:43)
[2024-03-17] MEDS: MIDAZOLAM 2 MG/2 ML VIAL IV PRN (12:10)
[2024-03-17] MEDS: HEPARIN SODIUM,PORCINE 5,000 UNIT/ML 1 ML VIAL SQ PRN (12:21)
--- NOTE | 2024-03-17 12:43 | P.ANPRN ---
Procedure Note - Anesthesia - Nerve Block Performed Left Erector Spinae Single Time Out Performed: Yes Date of Procedure: 03/17/24 Procedure Start Time: 12:10 Procedure Stop Time: 12:15 Location of Patient: PreOp Indication: Acute Post-Operative Pain, Requested by Surgeon Sedation Type: Sedate with meaningful contact maintained Preparation: Sterile Prep Position: Sitting Needle Types: Pajunk Needle Gauge: 21 Ultrasound used to visualize needle placement: Yes Ultrasound used to observe medication spread: Yes Resistance on Injection: Normal Image Stored and Saved: Yes Events: Uneventful and Well Tolerated (Ropivacaine 0.5% 15 cc plus normal saline 10 cc plus dexamethasone 4 mg given in the left side at T6)
--- NOTE | 2024-03-17 12:54 | P.NAPBC ---
NAPBC Queries - NAPBC Queries Was patient's case review presented at [facility] tumor board? If no, comment.: Yes Was patient's pathology reviewed at [facility]? If no, comment.: Yes Was breast conservation surgery offered? If no, comment.: Yes Was sentinel node biopsy offered? If no, comment.: Yes Was diagnosis confirmed by percutaneous core biopsy? If no, comment.: Yes Is patient mastectomy patient?: Yes Was a preop referral to reconstructive surgeon offered?: Yes Clinical Stage: stage 0
[2024-03-17] MEDS ORDERED: ROPIVACAINE 5 MG/ML 30 ML VIAL ONE (13:47)
[2024-03-17] MEDS ORDERED: DEXAMETHASONE SOD PHOSPHATE 4 MG/ML 1 ML VIAL ONE (13:47)
[2024-03-17] MEDS ORDERED: SUCCINYLCHOLINE CHLORIDE 200 MG/10 ML VIAL IV ONE (13:47)
[2024-03-17] MEDS ORDERED: MIDAZOLAM 2 MG/2 ML VIAL ONE (13:47)
[2024-03-17] MEDS ORDERED: PROPOFOL 10 MG/ML 20 ML VIAL IV ONE (13:47)
[2024-03-17] MEDS ORDERED: KETAMINE HCL IN 0.9 % NACL 50 MG/5 ML SYRINGE ONE (13:47)
[2024-03-17] MEDS ORDERED: LIDOCAINE 1% INJ 10MG/ML (20 ML MDV) ONE (13:47)
[2024-03-17] MEDS ORDERED: fentaNYL (PF) 50 MCG/ML 2 ML AMP ONE (13:47)
[2024-03-17] MEDS ORDERED: SODIUM CHLORIDE 0.9% (PF) 10 ML VIAL ONE (13:47)
[2024-03-17] MEDS: LIDOCAINE 1% INJ 10MG/ML (20 ML MDV) SQ ONE (15:08)
[2024-03-17] MEDS ORDERED: ONDANSETRON 4 MG/2 ML VIAL IVP PRN (15:10)
[2024-03-17] MEDS ORDERED: NALOXONE 0.4 MG/ML 1 ML VIAL IV PRN (15:10)
--- NOTE | 2024-03-17 15:10 | P.BCAON ---
Date of Procedure: 03/17/24 Preoperative Diagnosis: DCIS left breast/positive margin and reexcision of lumpectomy site Postoperative Diagnosis: Same Procedure(s) Performed: Left mastectomy Anesthesia: NANCY Surgeon: Eneida Hernandez Estimated Blood Loss (ml): 15 IV fluids (ml): 600 Pathology: other (left breast) Condition: stable Disposition: floor Indications for Procedure: DCIS left breast/status post lumpectomy with positive margins on reexcision Operative Findings: Dense breast tissue Description of Procedure: The patient was brought to the operative suite and following induction of anesthesia the left breast was prepped and draped in a sterile fashion. Superior and inferior skin flaps were developed. Dissection was in the cutaneous tissue between the skin and the breast tissue. The superior flap was developed down to the pectoralis muscle. The inferior flap was developed down to the pectoralis muscle. The breast was brought from medial to lateral being careful to maintain hemostasis off of the pectoralis muscle using the harmonic scalpel and the electrocautery device. At the inferior lateral aspect of the breast the prior lumpectomy site was identified and the cavity was entered. A seroma was aspirated. Dissection was performed down to the area of the axilla and the breast was transected. A suture was placed superiorly which was short and a long suture was placed laterally. After we are sure that hemostasis was attained the wound was well irrigated. A #10 ELIANA drain was placed. This was secured in place using a nylon suture. Surgicel in powder form was placed. The subcutaneous tissue was closed using 3-0 Vicryl suture. This was interrupted. Running 3-0 Vicryl suture was then placed. A running 4-0 Monocryl was then placed. 1% lidocaine 20 cc was injected into the incision. Drain was noted to be holding suction without difficulty. The patient tolerated the procedure in stable condition. All instruments and sponge counts were correct at the end of the case.
[2024-03-17] MEDS: HYDROmorphone 0.5 MG/0.5 ML SYRINGE IVP PRN (15:49)
[2024-03-17] MEDS: HYDROcodone/APAP 5-325MG 1 EACH TAB PO PRN (17:35)
[2024-03-17] MEDS: SODIUM CHLORIDE 0.9% 1,000 ML IV SCH (17:36)
[2024-03-17] MEDS: HEPARIN SODIUM,PORCINE 5,000 UNIT/ML 1 ML VIAL SQ SCH (18:15)
[2024-03-17] MEDS: MORPHINE SULFATE 4 MG/ML SYRINGE IVP PRN (20:07)
[2024-03-18] MEDS: HEPARIN SODIUM,PORCINE 5,000 UNIT/ML 1 ML VIAL SQ SCH (00:14)
[2024-03-18 06:40] LABS: Basophils % (A) 0 %; Eosinophils % (A) 0 %; HCT 32.5 % (34.0-46.0); HGB 10.8 gm/dL (11.4-16.0); Lymphocytes # (A) 1.5 k/uL (1.0-4.8); Lymphocytes % (A) 11 %; MCH 29.4 pg (25.0-35.0); MCHC 33.2 g/dL (31.0-37.0); MCV 88.6 fL (80.0-100.0); Mean Platelet Volume 6.7; Monocytes # (A) 0.8 k/uL (0-1.0); Monocytes % (A) 6 %; Neutrophils # (A) 12.1 k/uL (1.3-7.7); Neutrophils % (A) 83 %; Platelet Count 285 k/uL (150-450); RBC 3.66 m/uL (3.80-5.40); RDW 12.6 % (11.5-15.5); WBC 14.6 k/uL (3.8-10.6)
[2024-03-18] MEDS: LEVOTHYROXINE 137 MCG TAB PO SCH (07:36)
--- NOTE | 2024-03-18 08:35 | P.PN ---
Subjective Progress Note Date: 03/18/24 Principal diagnosis: POD #1 left mastectomy Lupe is a 33-year-old female postop day #1 left mastectomy. Postoperatively she is doing well. She is tolerating diet without difficulty. Her ELIANA output is serous and minimal in nature. Hemoglobin 10.8. White count 14.6. Objective - Vital Signs Vital signs: Vital Signs Temp 98.1 F 03/18/24 00:00 Pulse 76 03/18/24 00:00 Resp 14 03/18/24 00:00 BP 114/60 03/18/24 00:00 Pulse Ox 97 03/18/24 00:00 FiO2 Intake & Output 03/17/24 03/18/24 03/18/24 18:59 06:59 18:59 Intake Total 1350 Output Total 290 80 Balance 1060 -80 Weight 60.5 kg Intake: IV 1350 Output: Drainage 80 Left Breast 80 Urine 275 Estimated Blood Loss 15 Other: # Voids 1 2 - Constitutional General appearance: Present: cooperative - EENT Eyes: Present: EOMI ENT: Present: hearing grossly normal - Neck Neck: Present: normal ROM - Respiratory Respiratory: bilateral: CTA - Cardiovascular Rhythm: regular Heart sounds: normal: S1, S2 - Integumentary Integumentary Comment(s): Left chest wall incision clean and dry Integumentary: Present: normal turgor - Labs CBC & Chem 7: 03/18/24 06:14 Labs: Abnormal Lab Results - Last 24 Hours (Table) 03/18/24 Range/Units 06:14 WBC 14.6 H (3.8-10.6) k/uL RBC 3.66 L (3.80-5.40) m/uL Hgb 10.8 L (11.4-16.0) gm/dL Hct 32.5 L (34.0-46.0) % Neutrophils # 12.1 H (1.3-7.7) k/uL Assessment and Plan Assessment: : Patient is doing well postoperatively Plan: Discharge home to be followed as an outpatient Teach drain care
--- NOTE | 2024-03-18 08:38 | P.DS ---
Providers Date of admission: 03-17-24 Expected date of discharge: 03/18/24 Attending physician: Eneida Hernandez Consults: 03/17/24 15:13 Consult Physician Routine Consulting Provider: Anuel Murillo Consult Reason/Comments: medical managment Do you want consulting provider notified?: Yes Primary care physician: [facility] Course: Is postop day #1 left mastectomy. She is doing well at this time. She is tolerating her diet without difficulty. Procedures: Left mastectomy on 03-17-2024 Patient Condition at Discharge: Good Plan - Discharge Summary Discharge Rx Participant: Yes New Discharge Prescriptions: New oxyCODONE HCL [OxyIR] 5 mg PO Q6H PRN #10 tab PRN Reason: Breakthrough Pain No Action oxyCODONE HCL [OxyIR] 5 mg PO Q6H PRN #10 tab PRN Reason: Breakthrough Pain Levothyroxine Sodium 137 mcg PO MOTUWETHFRSA Metoprolol Succinate [Metoprolol Succinate ER] 25 mg PO QAM Aspirin 81 mg PO DAILY Ibuprofen [Motrin] 600 mg PO Q6HR PRN PRN Reason: Pain Amoxic-Pot Clav 875-125Mg [Augmentin 875-125] 1 tab PO Q12HR 10 Days #20 tab Discharge Medication List Levothyroxine Sodium 137 mcg PO MOTUWETHFRSA 05/04/23 [History] Aspirin 81 mg PO DAILY 08/05/23 [History] Metoprolol Succinate [Metoprolol Succinate ER] 25 mg PO QAM 08/05/23 [History] Ibuprofen [Motrin] 600 mg PO Q6HR PRN 02/01/24 [History] Amoxic-Pot Clav 875-125Mg [Augmentin 875-125] 1 tab PO Q12HR 10 Days #20 tab 03/07/24 [Rx] oxyCODONE HCL [OxyIR] 5 mg PO Q6H PRN #10 tab 03/08/24 [Rx] oxyCODONE HCL [OxyIR] 5 mg PO Q6H PRN #10 tab 03/17/24 [Rx] Follow up Appointment(s)/Referral(s): Eneida Hernandez MD [STAFF PHYSICIAN] - 3 Days Activity/Diet/Wound Care/Special Instructions: Do not drive until seen by Dr. Cadet Teach patient and drain care and dressing changes May shower after 48 hours Discharge Disposition: HOME SELF-CARE
[2024-03-18 09:44] VITALS: BP 129/66; PULSE 84; RESP 16; TEMP 98
--- NOTE | 2024-03-18 10:57 | P.CONS ---
History of Present Illness - Reason for Consult Consult date: 03/18/24 Status post left mastectomy - History of Present Illness This is a very pleasant 33-year-old female who follows with Dr. 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 Patient does admit she smokes daily occasionally uses alcohol and denies any other illicit drug use. Patient was admitted under Dr. Helio Isbell and is status post left breast mastectomy, postop day 1 this morning doing relatively well dressing is dry and intact and has binder noted on exam. Patient noted to have ELIANA drain and hemoglobin is stable and noted to have a mildly elevated white count of 14.6 likely reactive. Provided prescription for follow-up labs as patient is being discharged today to monitor that WBC outpatient. Patient is afebrile with no reports of chest pain, does elicit some chest wall pain and denies palpitations. Patient chronically takes metoprolol given her thyroid history. Patient is tolerating diet with no reported nausea or vomiting. Patient reports the passing gas and has not had a bowel movement yet. Patient is up to the bathroom with no difficulties currently awaiting her to pick her up. Patient does have a follow-up appointment arranged and also has a follow-up appointment with Dr. Carlos Bueno this week. Patient does follow with endocrine Dr. Kim outpatient and is also scheduled next week for this REVIEW OF SYSTEMS: CONSTITUTIONAL: No fever, no malaise, no fatigue. HEENT: No recent visual problems or hearing problems. Denied any sore throat. CARDIOVASCULAR: No chest pain, orthopnea, PND, no palpitations, no syncope. Reports chest wall discomfort at the left mastectomy site PULMONARY: No shortness of breath, no cough, no hemoptysis. GASTROINTESTINAL: No diarrhea, no nausea, no vomiting, no abdominal pain. NEUROLOGICAL: No headaches, no weakness, no numbness. HEMATOLOGICAL: Denies any bleeding or petechiae. GENITOURINARY: Denies any burning micturition, frequency, or urgency. MUSCULOSKELETAL/RHEUMATOLOGICAL: Denies any joint pain, swelling, or any muscle pain. ENDOCRINE: Denies any polyuria or polydipsia. The rest of the 14-point review of systems is negative. PHYSICAL EXAMINATION: GENERAL: The patient is alert and oriented x3, not in any acute distress. Well developed, well nourished. HEENT: Pupils are round and equally reacting to light. EOMI. No scleral icterus. No conjunctival pallor. Normocephalic, atraumatic. No pharyngeal erythema. No thyromegaly. Multiple fractured teeth and dental caries noted CARDIOVASCULAR: S1 and S2 present. No murmurs, rubs, or gallops. PULMONARY: Chest is clear to auscultation, no wheezing or crackles. ABDOMEN: Soft, nontender, nondistended, normoactive bowel sounds. No palpable organomegaly. MUSCULOSKELETAL: No joint swelling or deformity. EXTREMITIES: No cyanosis, clubbing, or pedal edema. NEUROLOGICAL: Gross neurological examination did not reveal any focal deficits. SKIN: No rashes. 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 Helio Isbell underwent left breast mastectomy pos top day 1 and doing relatively well this morning. Patient is scheduled for discharge today currently awaiting her to pick her up Chest binder noted and dressing is dry and intact and encourage patient incentive spirometer use at least 10 times every hour while awake including taking home. Patient reports she 3 of these at home from previous surgeries Strongly encouraged complete smoking cessation White count mildly elevated at 14 and recommend repeat labs in the outpatient setting. Patient does have appointments with surgeon as well as her endocrine and family practice provider. Prescription provided for repeat labs Encouraged increase activity as tolerated Continue supportive care Patient is medically stable once cleared by general surgery. Thank you kindly for this consultation. We will continue to follow during hospitalization. The impression and plan of care has been dictated by Nancie Hughes, Nurse Practitioner as directed. Dr. Pierce August MD I have performed a history and examination and MDM of this patient, discussed the same with the dictator, and agree with the dictator's assessment and plan as written ,documented as a scribe. Based on total visit time, I have performed more than 50% of the visit. Past Medical History Past Medical History: Cancer, Chest Pain / Angina Additional Past Medical History / Comment(s): hx hole in heart, ovarian cyst, pericardial effusion 2021, thyroid ca 2022; left breast cancer Nov 2023 History of Any Multi-Drug Resistant Organisms: None Reported Past Surgical History: Breast Surgery, Heart Catheterization Additional Past Surgical History / Comment(s): Amplatzer septal occluder implant 2014. pericardial effusion surg 2021. thyroid removed. left breast surg x2 Past Anesthesia/Blood Transfusion Reactions: No Reported Reaction Additional Past Anesthesia/Blood Transfusion Reaction / Comm: no hx blood transfusion Past Psychological History: No Psychological Hx Reported Additional Psychological History / Comment(s): related to surgery Smoking Status: Current every day smoker Past Alcohol Use History: Occasional Additional Past Alcohol Use History / Comment(s): started smoking at age 11, 1ppd; drinks occasional on weekends- advised no alcohol 24 hrs prior to surg. Past Drug Use History: None Reported Additional Drug Use History / Comment(s): occasional use - Past Family History Mother Family Medical History: No Reported History Additional Family Medical History / Comment(s): maternal grandfather colon CA Father Family Medical History: Cancer, Deep Vein Thrombosis (DVT) Additional Family Medical History / Comment(s): lung CA. paternal grandmother breast CA Medications and Allergies Home Medications Medication Instructions Recorded Confirmed Type Levothyroxine Sodium 137 mcg PO MOTUWETHFRSA 05/04/23 03/14/24 History Aspirin 81 mg PO DAILY 08/05/23 03/14/24 History Metoprolol Succinate [Metoprolol 25 mg PO QAM 08/05/23 03/14/24 History Succinate ER] Ibuprofen [Motrin] 600 mg PO Q6HR PRN 02/01/24 03/14/24 History Amoxic-Pot Clav 875-125Mg 1 tab PO Q12HR 10 Days #20 tab 03/07/24 03/14/24 Rx [Augmentin 875-125] oxyCODONE HCL [OxyIR] 5 mg PO Q6H PRN #10 tab 03/08/24 03/14/24 Rx oxyCODONE HCL [OxyIR] 5 mg PO Q6H PRN #10 tab 03/17/24 Rx Allergies Allergy/AdvReac Type Severity Reaction Status Date / Time nitrile Allergy Rash/Hives Verified 03/14/24 15:07 sumatriptan [From Imitrex] Allergy Anaphylaxis Verified 03/14/24 15:07 Physical Exam Vitals: Vital Signs Temp Pulse Pulse Pulse Resp BP Pulse Ox 03/18/24 00:00 98.1 F 76 14 114/60 97 03/17/24 20:00 98.4 F 70 15 120/59 98 03/17/24 18:57 98.0 F 94 16 116/62 97 03/17/24 18:27 98.2 F 85 18 115/56 96 03/17/24 17:57 85 16 155/56 96 03/17/24 17:42 16 118/68 99 03/17/24 17:27 98.2 F 67 16 117/71 98 03/17/24 17:12 98.2 F 74 16 125/70 98 03/17/24 16:42 80 14 113/57 98 03/17/24 16:27 81 14 119/59 98 03/17/24 16:11 74 14 121/60 99 03/17/24 15:56 83 14 119/57 100 03/17/24 15:41 98.1 F 96 16 123/60 98 03/17/24 12:20 63 16 123/59 100 03/17/24 11:27 98.3 F 98 16 139/73 98 Intake and Output 03/17/24 03/18/24 03/18/24 22:59 06:59 14:59 Intake Total 300 Output Total 340 30 Balance -40 -30 Intake: IV 300 Output: Drainage 50 30 Left Breast 50 30 Urine 275 Estimated Blood Loss 15 Other: # Voids 2 2 Weight 60.5 kg Results CBC & Chem 7: 03/18/24 06:14 Labs: Abnormal Lab Results - Last 24 Hours (Table) 03/18/24 Range/Units 06:14 WBC 14.6 H (3.8-10.6) k/uL RBC 3.66 L (3.80-5.40) m/uL Hgb 10.8 L (11.4-16.0) gm/dL Hct 32.5 L (34.0-46.0) % Neutrophils # 12.1 H (1.3-7.7) k/uL
== END 2024-03-18 15:30 | disposition home or self-care (01) ==
LOC: OR 10:39 → 4FBP 15:37 → OR 03-18 15:30
PROVIDERS: ATTEND Surgery
DX: D05.12 Intraductal carcinoma in situ of left breast (principal); F17.210 Nicotine dependence, cigarettes, uncomplicated; E07.9 Disorder of thyroid, unspecified; Z90.89 Acquired absence of other organs; Z91.040 Latex allergy status; Z88.9 Allergy status to unspecified drugs, medicaments and biological substances; Z79.890 Hormone replacement therapy; Z79.82 Long term (current) use of aspirin; Z79.899 Other long term (current) drug therapy
CPT/HCPCS: 81025; 64999; 85025; 88307; 19303; J2250; J0330; J2270 ×2; J1644 ×2; J1100; J0690; J2405; J2003; J3010; J2795; J2704; J1171

== ENCOUNTER → 2024-03-22 | Outpatient (CLI) | payer BC ==
[2024-03-22 15:16] LABS: Basophils # (A) 0.06 X 10*3/uL (0.00-0.10); Basophils % (A) 0.5 %; Eosinophils # (A) 0.21 X 10*3/uL (0.04-0.35); Eosinophils % (A) 1.9 %; HCT 40.6 % (37.2-46.3); HGB 13.5 g/dL (12.0-15.0); Lymphocytes # (A) 2.05 X 10*3/uL (0.90-5.00); Lymphocytes % (A) 18.7 %; MCH 28.5 pg (27.0-32.0); MCHC 33.3 g/dL (32.0-37.0); MCV 85.7 FL (80.0-97.0); Mean Platelet Volume 9.4 FL (9.5-12.2); Monocytes # (A) 0.79 X 10*3/uL (0.20-1.00); Monocytes % (A) 7.2 %; NRBC Per 100 WBC 0 X 10*3/uL (0.00-0.01); Neutrophils # (A) 7.84 X 10*3/uL (1.80-7.70); Neutrophils % (A) 71.3 %; Platelet Count 360 X 10*3/uL (140-440); RBC 4.74 X 10*6/uL (4.10-5.20); RDW 12.5 % (11.5-14.5); WBC 10.99 X 10*3/uL (4.50-10.00)
== END | disposition home or self-care (01) ==
LOC: LABWHC1 11:29
PROVIDERS: ATTEND Registered Nurse
DX: D72.829 Elevated white blood cell count, unspecified (principal)
CPT/HCPCS: 36415; 85025

== ENCOUNTER → 2024-03-24 | Outpatient (CLI) | payer BC ==
[2024-03-24 11:03] VITALS: BP 127/74; PULSE 75; RESP 18; TEMP 97.7
--- NOTE | 2024-03-24 11:27 | P.BCPO ---
Progress Note - Text Progress Note Date: 03/24/24 Lupe is status post left mastectomy on 03-17-24. Her pathology showed residual DCIS in lumpectomy cavity. Post operatively she is doing well. The ELIANA output is approximately 40 cc/day Examination: Lungs: Clear Heart: Regular rate and liver rhythm Incision: Clean and dry ELIANA output approximately 40 cc/day Patient given a copy of pathology report Postoperative education given to patient Functional assessment arm abduction no difficulty Plan: Follow-up next week for drain removal Follow-up with medical oncology Post Op Education - Post Op Education Post Op Education Provided Date: 03/24/24 - Functional Assessment Performed?: Yes (arm abduction) Referal Provided?: No Path Report - Was patient given path report? Path Report Date Given: 03/24/24
== END ==
LOC: WWCWWP 10:44
PROVIDERS: ATTEND Surgery
DX: D05.12 Intraductal carcinoma in situ of left breast (principal); Z90.12 Acquired absence of left breast and nipple; Z91.048 Other nonmedicinal substance allergy status; Z88.9 Allergy status to unspecified drugs, medicaments and biological substances

== ENCOUNTER → 2024-05-12 | Outpatient (CLI) | payer BC ==
[2024-05-12 13:04] VITALS: BP 139/84; PULSE 88; RESP 17; TEMP 97.9
--- NOTE | 2024-05-12 13:14 | P.PN ---
Subjective Progress Note Date: 05/12/24 Principal diagnosis: DCIS Subjective Progress Note Date: 05-12-24 Principal diagnosis: DCIS left breast Lumpectomy left breast 02-02-2024 Reexcision left breast 03-08-2024 Mastectomy left breast 03-17-2024 Requesting physician: Michelle Jaquez History of present illness: Lupe is a 33 year old female seen in consultation for DR. Jaquez regarding a left breast biopsy on 12-10-23 which was + DCIS. She had a bilateral breast ultrasound on 11-27-23 which showed a lesion in the left breast. A biopsy was done and + for a fibroadenoma. She was recommended to have a mammogram which showed microclacification of concern at the 3 and 9-10 oclock position. No lesions in the right breast. She had a left breast stero biopsy on 12-10-23 which showed DCIS. She is complaining of pain in both breast for several months. She has not felt any lumps masses or nodules of concern in either breast. The ultrasound led to a core biopsy on 12-17-2023 of the left breast at 2:00 which was positive for fibroadenoma. However this led to bilateral mammograms showing microcalcifications at 2 sites in the left breast resulting in a stereo biopsy of the 3 o'clock position which showed DCIS. The patient then had a stereo biopsy of the other side at the 9 to 10 o'clock position in the left breast. ultrasound of pelvis recommended an MRI scheduled for December; MRI of pelvis no spspecious pelvic mass The patient on 12-24-2023 underwent a stereotactic core biopsy of a second site of microcalcifications in the left breast. This revealed flat epithelial atypia. The patient tolerated this in stable condition. A Top-Hat clip was placed here this is a posterior Top-Hat clip. The anterior Top-Hat clip DCIS. Case presented at tumor board on 01-05-2024. Recommendation to await genetic testing if this is positive consider bilateral mastectomy if genetic testing is negative bracket left breast lumpectomy with sentinel node biopsy. Genetic testing (-) note radiation oncology reviewed: 01-15-24 plan on radiation after surgery She underwent excision on 02-02-24 and was noted to have 4.8 cm area of DCIS with close medial < 2mm and + multifocal superior and posterior margins, sentinal node (-). She tolerated the lumpectomy without difficulty. The patient was scheduled for postoperative visit on 02-12-2024. However secondary to weather conditions she was unable to keep the appointment. 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 The DCIS focally involve the cauterized superior margin and closely approximated the superior and posterior margins less than 1 mm multifocally. Additionally if it was focally less than 2 mm from the medial margin. She had a sentinel lymph node removed which was negative for any metastatic disease. I have called the patient and given this information to the patient. She states she is doing well postoperatively. I have recommended reexcision of the superior medial margins and depending of posterior dissection was on the pectoralis muscle additional tissue to be removed posteriorly as well. The patient understands. She will come for a postoperative visit on February 24 and be scheduled for reexcision in the near future. She underwent reexcision of the lumpectomy site on 03-08-2024. This again revealed a positive margin. She therefore underwent a left breast mastectomy on 03-17-2024. note 05-02-24 Dr. Navas reviewed patient decided to not take tamoxifen; close surveillence nd MRI in May 2024 She is not concerned about any lumps masses or nodules on her chest wall or right breast caffiene: pop occasional nicotine: 1 PPD for 20 years BCP: none hormones: none chocolate: occasional Family History: paternal grandmother: bilateral breast cancer, at 56 maternal grandfather: colon cancer Hormonal History: menarche: 11 periods regular, last period 1 week ago Surgical History: atrial septal defect closure Total thyroidectomy for cancer at the age of 30, no radiation no chemo takes thyroid replacement Pericardial effusion Cardiac catheterization Medical history: heart defect sees Dr. Cook thyroid disease DR. Velez uses aspirin daily Social History: nicotine: as above alcohol: several times a week liquor drugs: none Review of Systems - Constitutional Denies fever, Denies weight loss - EENT Eyes: denies blurred vision Ears: deny: decreased hearing, tinnitus Ears, nose, mouth and throat: Denies dysphagia - Breasts bilateral: as per HPI - Cardiovascular Reports as per HPI - Respiratory Reports as per HPI, Reports cough - Gastrointestinal Reports as per HPI - Genitourinary Genitourinary: Denies dysuria, Denies hematuria Menstruation: Reports as per HPI - Musculoskeletal Reports as per HPI - Integumentary Reports rash, Reports unusual bruising - Neurological Denies headaches, Denies syncope - Psychiatric Reports as per HPI - Endocrine Reports as per HPI, Reports fatigue - Hematologic/Lymphatic Reports as per HPI Past Medical History Past Medical History: Cancer, Chest Pain / Angina Additional Past Medical History / Comment(s): Amplatzer septal occluder. Hole in heart. , ovarian cyst History of Any Multi-Drug Resistant Organisms: None Reported Additional Past Surgical History / Comment(s): "heart surgery" 2014. Thyroidectomy 2021 Past Anesthesia/Blood Transfusion Reactions: No Reported Reaction Additional Past Anesthesia/Blood Transfusion Reaction / Comm: no hx blood transfusion Past Psychological History: No Psychological Hx Reported Smoking Status: Current every day smoker Past Alcohol Use History: Daily Additional Past Alcohol Use History / Comment(s): started smoking at age 11,1ppd,drinks rum or vodka-drinks more than 7 drinks per week-approx up to 10 per week. 12-10-23 pt states she drinks once a week 2-3 drinka Past Drug Use History: Marijuana - Past Family History Mother Family Medical History: No Reported History Additional Family Medical History / Comment(s): maternal grandfather colon CA Father Family Medical History: Cancer Additional Family Medical History / Comment(s): lung CA. paternal grandmother breast CA Medications and Allergies Home Medications Medication Instructions Recorded Confirmed Type Levothyroxine Sodium 137 mcg PO MOTUWETHFRSA 05/04/23 12/23/23 History Aspirin 81 mg PO DAILY 08/05/23 12/23/23 History Metoprolol Succinate [Metoprolol 25 mg PO QAM 08/05/23 12/23/23 History Succinate ER] Allergies Allergy/AdvReac Type Severity Reaction Status Date / Time sumatriptan [From Imitrex] Allergy facial and Verified 12/23/23 08:41 anshu hand swelling Objective - Vital Signs Vital signs: Intake & Output 05/11/24 05/12/24 05/12/24 18:59 06:59 18:59 Weight 61.235 kg - Constitutional General appearance: Present: cooperative - EENT Eyes: Present: EOMI ENT: Present: hearing grossly normal - Neck Neck: Present: normal ROM - Respiratory Respiratory: bilateral: CTA - Cardiovascular Rhythm: regular Heart sounds: normal: S1, S2 - Integumentary Integumentary: Present: normal turgor - Musculoskeletal Musculoskeletal: Present: gait normal - Psychiatric Psychiatric: Present: A&O x's 3, appropriate affect, intact judgment & insight - Additional findings Additional findings: Breast Exam: Inspection: Left breast mastectomy incision clean and dry Right breast grade 2 ptosis Palpation: Right breast: Multi positional exam fibrocystic changes no dominant masses or nodules of concern Left chest wall: No evidence of any recurrent disease Left axilla: No adenopathy of concern Right axilla: No adenopathy of concern Assessment and Plan Assessment: Impression: Patient doing well at this time status post left breast mastectomy for DCIS Note Dr. Funez appreciated, patient opted not to take tamoxifen, will have an MRI of the right breast in May 2024 Plan: Follow-up after MRI right breast Continue follow-up with medical oncology Follow-up sooner any questions or concerns CC:Dr. Olesya Jaquez
== END ==
LOC: WWCWWP 12:53
PROVIDERS: ATTEND Surgery
DX: D05.12 Intraductal carcinoma in situ of left breast (principal); Z90.12 Acquired absence of left breast and nipple; Z80.3 Family history of malignant neoplasm of breast; Z91.048 Other nonmedicinal substance allergy status; Z88.8 Allergy status to other drugs, medicaments and biological substances

== ENCOUNTER → 2024-06-13 | Outpatient (CLI) | payer BC ==
--- NOTE | 2024-06-17 12:47 | BMR ---
EXAM DATE: 06/13/2024 EXAM DESCRIPTION: MRI-Breast Bilat (W/WO Contrast) INDICATION: Diagnostic MRI. Recent left breast cancer status post mastectomy. COMPARISON: Comparison is made with relevant prior imaging in PACS. CONTRAST: 6.0 cc of Gadavist TECHNIQUE: Multiplanar MRI imaging of both breasts was performed with a dedicated breast coil, before and after intravenous administration of gadolinium contrast, using the standard breast mass protocol. Computer-aided detection was used to aid in interpretation. FINDINGS: General breast composition: The breast is heterogeneously dense Background parenchymal enhancement: Mild FINDINGS: Right Breast: Review of the dynamic contrast-enhanced series shows focal non mass enhancement in the central outer breast at far posterior depth measuring 4.7 by 2.0 x 1.9 cm (503:241, 601:158). There is an additional oval enhancing T2 hyperintense mass with persistent washout kinetics measuring 0.6 x 0.9 x 0.4 cm (601:158, 503:314). No lymphadenopathy. Left Breast: Review of the dynamic contrast-enhanced series shows postmastectomy changes. Minimal enhancement at the chest wall is likely postsurgical. No lymphadenopathy. Miscellaneous findings:0.7 cm T2 hyperintense hepatic lesion which is not fully characterized. IMPRESSION: Right Breast: 1. Focal non mass enhancement in the central outer breast measuring up to 4.7 cm, as this is a baseline MRI this may represent benign parenchymal enhancement however given recent history of malignancy targeted ultrasound is recommended for further evaluation. If no sonographic correlate is present MR biopsy is recommended. 2. 0.9 cm mass in the central upper breast at mid depth, this may represent a fibroadenoma however targeted ultrasound is recommended for further evaluation. If no sonographic correlate is present MR biopsy is recommended. 3. No lymphadenopathy. Left Breast: 1. Postmastectomy changes. No MRI evidence of malignancy. 2. No lymphadenopathy. OVERALL ASSESSMENT -- BI-RADS 4 Indeterminate 0.7 cm hepatic lesion, correlation with outside imaging is recommended, if this was not previously seen dedicated imaging is recommended for further evaluation (CT or MR). MTDD
== END | disposition home or self-care (01) ==
LOC: RADMRIMAIN 08:45
PROVIDERS: ATTEND Internal Medicine Hematology & Oncology
DX: D05.12 Intraductal carcinoma in situ of left breast (principal); N63.10 Unspecified lump in the right breast, unspecified quadrant; Z90.12 Acquired absence of left breast and nipple
CPT/HCPCS: 77049; A9585

== ENCOUNTER → 2024-07-08 | Outpatient (CLI) | payer BC ==
--- NOTE | 2024-07-08 13:14 | USB ---
Reason for Exam: Follow-up at short interval from prior study. Patient History: Menarche at age 11. Patient has no children. Breast cancer, left, age 33. Breast cancer, left, age 33. 03/17/2024, Mastectomy on the Left side. 02/02/2024, Lumpectomy on the Left side. 02/02/2024, MG pre op loc each addl LT on the Left side. 02/02/2024, Malignant MG pre op needle loc LT on the left side. 12/24/2023, High risk MG stereo VAD BX LT on the left side. 12/18/2023, Benign US biopsy breast VAD LT on the left side. 12/10/2023, Malignant MG stereo VAD BX LT on the left side. Paternal grandmother had breast cancer. Technique: Method: Targeted. Prior Study Comparison: 11/27/2023 Bilateral MG 3D diag mammo w/cad [facility], [facility]. 12/18/2023 Left MG diagnostic mammo LT wo CAD., [facility]. 12/23/2023 Left MG 3D follow up no charge LT, [facility]. Findings: The lateral section of the breast of the right breast, the axilla of the right breast and the retroareolar of the right breast were scanned. Targeted right breast ultrasound. There is a 5 x 8 x 5 mm hyperechoic lesion identified positioned 5 cm distance from nipple is similar in size and expected location relative to 9 mm mass on recent MRI. Right axilla shows benign appearing lymph node. Overall Assessment: Suspicious, BI-RAD 4 Management: Ultrasound Core Biopsy of the right breast. Tissue sampling due to MRI abnormality and lesion not being fat density on MRI. After sampling and clip can be placed and limited repeat MRI can evaluate location of clip relative to the area of MRI concern. A clinical breast exam by your physician is recommended on an annual basis and results should be correlated with mammographic findings. This exam should not preclude additional follow-up of suspicious palpable abnormalities. Results were given to the patient verbally at the time of exam. [facility], , 07/08/2024 1:10 PM. Electronically signed and approved by: Eleazar Aguiar M.D.
== END | disposition home or self-care (01) ==
LOC: RADUSWWP 09:35
PROVIDERS: ATTEND Internal Medicine Hematology & Oncology
DX: Z85.3 Personal history of malignant neoplasm of breast (principal); Z80.3 Family history of malignant neoplasm of breast

== ENCOUNTER → 2024-08-24 | Outpatient (CLI) | payer BC ==
[2024-08-24 15:59] VITALS: BP 126/70; PULSE 67; RESP 17; TEMP 98.7
--- NOTE | 2024-08-24 16:14 | P.PN ---
Subjective Progress Note Date: 08/24/24 Principal diagnosis: Bilateral breast DCIS 08-24-24 Principal diagnosis: DCIS bilateral breast Lumpectomy left breast 02-02-2024 Reexcision left breast 03-08-2024 Mastectomy left breast 03-17-2024 Bx. right breast DCIS via MRI Requesting physician: Michelle Jaquez History of present illness: 07-22-24 Lupe is a 33 year old female seen in consultation for DR. Jaquez regarding a left breast biopsy on 12-10-23 which was + DCIS. She had a bilateral breast ultrasound on 11-27-23 which showed a lesion in the left breast. A biopsy was done and + for a fibroadenoma. She was recommended to have a mammogram which showed microclacification of concern at the 3 and 9-10 oclock position. No lesions in the right breast. She had a left breast stero biopsy on 12-10-23 which showed DCIS. She is complaining of pain in both breast for several months. She has not felt any lumps masses or nodules of concern in either breast. The ultrasound led to a core biopsy on 12-17-2023 of the left breast at 2:00 which was positive for fibroadenoma. However this led to bilateral mammograms showing microcalcifications at 2 sites in the left breast resulting in a stereo biopsy of the 3 o'clock position which showed DCIS. The patient then had a stereo biopsy of the other side at the 9 to 10 o'clock position in the left breast. ultrasound of pelvis recommended an MRI scheduled for December; MRI of pelvis no spspecious pelvic mass The patient on 12-24-2023 underwent a stereotactic core biopsy of a second site of microcalcifications in the left breast. This revealed flat epithelial atypia . The patient tolerated this in stable condition. A Top-Hat clip was placed here this is a posterior Top-Hat clip. The anterior Top-Hat clip DCIS. Case presented at tumor board on 01-05-2024. Recommendation to await genetic testing if this is positive consider bilateral mastectomy if genetic testing is negative bracket left breast lumpectomy with sentinel node biopsy. Genetic testing (-) note radiation oncology reviewed: 01-15-24 plan on radiation after surgery She underwent excision on 02-02-24 and was noted to have 4.8 cm area of DCIS with close medial < 2mm and + multifocal superior and posterior margins, sentinal node (-). She tolerated the lumpectomy without difficulty. The patient was scheduled for postoperative visit on 02-12-2024. However secondary to weather conditions she was unable to keep the appointment. 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 The DCIS focally involve the cauterized superior margin and closely approximated the superior and posterior margins less than 1 mm multifocally. Additionally if it was focally less than 2 mm from the medial margin. She had a sentinel lymph node removed which was negative for any metastatic disease. I have called the patient and given this information to the patient. She states she is doing well postoperatively. I have recommended reexcision of the superior medial margins and depending of posterior dissection was on the pectoralis muscle additional tissue to be removed posteriorly as well. The patient understands. She will come for a postoperative visit on February 24 and be scheduled for reexcision in the near future. She underwent reexcision of the lumpectomy site on 03-08-2024. This again revealed a positive margin. She therefore underwent a left breast mastectomy on 03-17-2024. THis showed residual DCIS at lumpectomy site. All margins (-) and no invasive ductal cancer. MRI done on 06-13-24 Right breast changes noted a 4.7 cm area in the right breast and a .9 cm mass in the upper central right breast recommend ultrasound, if no lesions noted MRI biopsy of both areas, no lesions in the left chest wall BIRAD 4 ultrasound noted a 9 mm lesion felt to be in the vicinity of the MRI noted 9 mm lesion. No note made about the 4.7 cm area of concern; she underwent MRI guided biopsy of 2 sites in the right breast and 1 showed DCIS/it is believed that it is the 9 mm lesion note 05-02-24 Dr. Navas reviewed patient decided to not take tamoxifen; close surveillance and MRI in May 2024 She does not feel anything of concern in the left chest wall. In the right breast she thinks she feels some increased nodularity it is in the upper or 12 o'clock position of the breast Her case was presented at tumor board on 08 23 24, the feeling was that a mastectomy on the right side with a sentinel node biopsy would be appropriate. The patient and her would prefer that she have a mastectomy on that side. caffiene: pop occasional nicotine: 1 PPD for 20 years BCP: none hormones: none chocolate: occasional Family History: paternal grandmother: bilateral breast cancer, at 56 maternal grandfather: colon cancer Hormonal History: menarche: 11 periods regular, last period 1 week ago Surgical History: atrial septal defect closure Total thyroidectomy for cancer at the age of 30, no radiation no chemo takes thyroid replacement Pericardial effusion Cardiac catheterization Left breast lumpectomy/repeat reexcision/left breast mastectomy Medical history: heart defect sees Dr. Cook thyroid disease DR. Velez uses aspirin daily Social History: nicotine: as above alcohol: several times a week liquor drugs: none Review of Systems - Constitutional Denies fever, Denies weight loss - EENT Eyes: denies blurred vision Ears: deny: decreased hearing, tinnitus Ears, nose, mouth and throat: Denies dysphagia - Breasts bilateral: as per HPI - Cardiovascular Reports as per HPI - Respiratory Reports as per HPI, Reports cough - Gastrointestinal Reports as per HPI - Genitourinary Genitourinary: Denies dysuria, Denies hematuria Menstruation: Reports as per HPI - Musculoskeletal Reports as per HPI - Integumentary Reports rash, Reports unusual bruising - Neurological Denies headaches, Denies syncope - Psychiatric Reports as per HPI - Endocrine Reports as per HPI, Reports fatigue - Hematologic/Lymphatic Reports as per HPI Past Medical History Past Medical History: Cancer, Chest Pain / Angina Additional Past Medical History / Comment(s): Amplatzer septal occluder. Hole in heart. , ovarian cyst History of Any Multi-Drug Resistant Organisms: None Reported Additional Past Surgical History / Comment(s): "heart surgery" 2014. Thyroidectomy 2021 Past Anesthesia/Blood Transfusion Reactions: No Reported Reaction Additional Past Anesthesia/Blood Transfusion Reaction / Comm: no hx blood transfusion Past Psychological History: No Psychological Hx Reported Smoking Status: Current every day smoker Past Alcohol Use History: Daily Additional Past Alcohol Use History / Comment(s): started smoking at age 11,1ppd,drinks rum or vodka-drinks more than 7 drinks per week-approx up to 10 per week. 10-24 pt states she drinks once a week 2-3 drinka Past Drug Use History: Marijuana - Past Family History Mother Family Medical History: No Reported History Additional Family Medical History / Comment(s): maternal grandfather colon CA Father Family Medical History: Cancer Additional Family Medical History / Comment(s): lung CA. paternal grandmother breast CA Medications and Allergies Home Medications Medication Instructions Recorded Confirmed Type Levothyroxine Sodium 137 mcg PO MOTUWETHFRSA 05/04/23 12/23/23 History Aspirin 81 mg PO DAILY 08/05/23 12/23/23 History Metoprolol Succinate [Metoprolol 25 mg PO QAM 08/05/23 12/23/23 History Succinate ER] Allergies Allergy/AdvReac Type Severity Reaction Status Date / Time sumatriptan [From Imitrex] Allergy facial and Verified 12/23/23 08:41 anshu hand swelling Objective - Constitutional General appearance: Present: cooperative - EENT Eyes: Present: EOMI ENT: Present: hearing grossly normal - Neck Neck: Present: normal ROM - Respiratory Respiratory: bilateral: CTA - Cardiovascular Rhythm: regular Heart sounds: normal: S1, S2 - Integumentary Integumentary: Present: normal turgor - Musculoskeletal Musculoskeletal: Present: gait normal - Psychiatric Psychiatric: Present: A&O x's 3, appropriate affect, intact judgment & insight - Additional findings Additional findings: Breast Exam: Inspection: Left breast mastectomy incision clean and dry Right breast grade 2 ptosis Palpation: Right breast: Multi positional exam fibrocystic changes no dominant masses or n odules of concern, nodularity at biopsy site no evidence of infection Left chest wall: No evidence of any recurrent disease Left axilla: No adenopathy of concern Right axilla: No adenopathy of concern Assessment and Plan Assessment: Impression: Patient doing well at this time status post left breast mastectomy for DCIS Note Dr. Navas appreciated, patient opted not to take tamoxifen, MRI reveals 2 sites of concern in the right breast for which biopsy is recommended/ultrasound revealed 1 site which may correspond but not the second site; status post MRI biopsy of both sites, 1 revealed DCIS low-grade Plan: Right breast skin sparing mastectomy, right sentinel node injection, right sentinel node biopsy, possible right axillary node dissection she will have reconstruction in the future Continue follow-up with medical oncology clearance from Dr. Olesya Jaquez Risk and benefits of the procedure discussed with the patient and her . Risk include but are not limited to bleeding, infection, reaction to the anesthetic. She understands with leaving additional skin that there may be increased risk of seroma formation. She wishes to proceed. She also understands that there may not be residual cancer within the breast. CC:Dr. Olesya Jaquez
[2024-08-24 17:27] LABS: T4, Free (Free Thyroxine) 1.48 ng/dL (0.78-2.19)
== END ==
LOC: WWCWWP 15:41
PROVIDERS: ATTEND Surgery
DX: D05.11 Intraductal carcinoma in situ of right breast (principal); F17.210 Nicotine dependence, cigarettes, uncomplicated; F12.90 Cannabis use, unspecified, uncomplicated; Z88.8 Allergy status to other drugs, medicaments and biological substances; Z88.6 Allergy status to analgesic agent; Z90.12 Acquired absence of left breast and nipple
CPT/HCPCS: 84439; 84443; 86800